=== PATIENT | male | born 1940 | race Caucasian/White ===

== ENCOUNTER 2016-10-01 15:13 | Inpatient (IN) | payer MEDICARE ==
[~2016-10-01] VITALS: Ht 170.2 cm; Wt 79.6 kg
[2016-10-01] MEDS ORDERED: diphenhydrAMINE INJ 50MG/ML VIAL (J1200) As Ordered ONE (15:44)
[2016-10-01] MEDS ORDERED: ONDANSETRON 4MG/2ML VIAL (J2405) As Ordered ONE (15:45)
[2016-10-01] MEDS ORDERED: methylPREDNISolone INJ 125 MG/2 ML VIAL (J2930) As Ordered ONE (15:45)
[2016-10-01 15:55] LABS: EOS # 0.4 K/mm3 (0.0-0.50); EOS % 1.7 % (0.0-3.0); LARGE UNSTAINED CELL # 0.2 K/mm3 (0.0-0.4); LARGE UNSTAINED CELL % 0.8 % (0.0-4.0); LYMPH # 1.1 K/mm3 (1.5-4.5); LYMPH % 3.6 % (24.0-44.0); MEAN CORPUSCULAR HEMOGLOBIN 27.8 pg (27.0-33.0); MEAN CORPUSCULAR HGB CONC 32.5 g/dl (32.0-36.5); MEAN CORPUSCULAR VOLUME 85.5 fl (80.0-96.0); NEUTROPHILS # 22.3 K/mm3 (1.8-7.7); NEUTROPHILS % 89.9 % (36.0-66.0); PLATELET COUNT, AUTOMATED 294 k/mm3 (150-450); RED CELL DISTRIBUTION WIDTH 15.6 % (11.5-14.5); WHITE BLOOD COUNT 24.8 K/mm3 (4.0-10.0)
[2016-10-01 16:17] LABS: ALBUMIN 3.2 GM/DL (3.2-5.2); ALBUMIN/GLOBULIN RATIO 0.94 (1.00-1.93); BILIRUBIN,DIRECT 0.1 MG/DL (0.0-0.2); BILIRUBIN,TOTAL 0.4 MG/DL (0.2-1.0); CREATININE FOR GFR 2.99 MG/DL (0.70-1.30); POTASSIUM SERUM 4.3 MEQ/L (3.5-5.1); TOTAL PROTEIN 6.6 GM/DL (6.4-8.2)
[2016-10-01] MEDS ORDERED: PRED10TA PO (18:45)
[2016-10-01] MEDS ORDERED: GI COCKTAIL 50ML BTL(HYOSCYAMINE/MAALOX/LIDOCAINE VISCOUS)(1:3:1) As Ordered ONE (18:54)
[2016-10-01] MEDS ORDERED: CRES20TA PO (18:56)
[2016-10-01] MEDS ORDERED: RANI300T PO (18:56)
[2016-10-01] MEDS ORDERED: PLAV75TA38 PO (18:56)
[2016-10-01] MEDS ORDERED: LISI-538 PO (18:56)
[2016-10-01] MEDS ORDERED: GLIP-162 PO (18:56)
[2016-10-01] MEDS ORDERED: GEMF600T PO (18:56)
[2016-10-01] MEDS ORDERED: LISI40TAB PO (18:56)
[2016-10-01] MEDS ORDERED: PENT40TASA PO (18:56)
[2016-10-01] MEDS ORDERED: AMLO10TA2 PO (18:56)
[2016-10-01] MEDS ORDERED: METO50TA2 PO (18:56)
[2016-10-01] MEDS ORDERED: VITMTA PO (18:57)
[2016-10-01] MEDS ORDERED: FISH1000 PO (18:57)
[2016-10-01] MEDS ORDERED: VITA100066 PO (18:57)
[2016-10-01] MEDS ORDERED: GREE150C3 PO (18:57)
[2016-10-01] MEDS ORDERED: ASPI325T28 PO (18:57)
[2016-10-01] MEDS ORDERED: VITA500T88 PO (18:57)
[2016-10-01] MEDS ORDERED: NITR4TASL SL (18:57)
[2016-10-01] MEDS ORDERED: TURM500C3 PO (18:57)
[2016-10-01] MEDS ORDERED: NITROGLYCERIN 0.4 MG SUBL TABLET SL PRN (20:00)
[2016-10-01] MEDS ORDERED: ASPIRIN 325 MG TAB As Ordered ONE (20:12)
[2016-10-01 20:28] LABS: INR 1.05
[2016-10-01] MEDS ORDERED: GLUCOSE 4 GM CHEW TABLET PO PRN (20:30)
[2016-10-01] MEDS ORDERED: DEXTROSE 50% 50 ML SYRINGE IV PRN (20:30)
[2016-10-01] MEDS ORDERED: GLUCAGON FOR INJ 1 MG VIAL (J1610) SC PRN (20:30)
[2016-10-01] MEDS: HumaLOG INSULIN (NovoLOG) PER UNIT SC SCH (21:00)
--- NOTE | 2016-10-01 21:31 | HPEPDOC ---
General Date of Admission 10/01/16 Chief Complaint The patient is a 75-year-old male admitted with a reason for visit of General Weakness. Source: Patient History of Present Illness 75-year-old male with past medical history of hypertension, dyslipidemia, non- insulin dependent diabetes, CABG 4 approximately 14 years ago at [facility], peripheral vascular disease with history of renal artery stenting presented to the ER with a chief complaint of generalized weakness and worsening rash over the last 2 days. According to the patient, he has been feeling lethargy and malaise over the last 1 week. In addition, the patient says he has been having nausea, vomiting, some diarrhea, and muscle aches during this time. He also notes subjective fevers at home during this time. He states that he went to the urgent care facility 4 days ago and was prescribed clindamycin. Since then, the patient states that he has developed a rash all over his body and that his symptoms of lethargy and malaise have gotten worse. He notes that during this time he has been unable to eat much of anything as his appetite has been decreased. Also of note, the patient does state that he has 6 out of 10 chest pain in the substernal area which he states has no clear aggravating or alleviating factors. He notes that he has been having this type of pain for the past few months and denies any similar pain in the past before this. He denies following with a educational administrator, and cannot recall his PCPs name. At this time, the patient denies any shortness of breath, diaphoresis, lightheadedness, dizziness, cough, abdominal pain, sick contacts, recent travel , or recent hospitalization. In the ED, an EKG revealed ST Depressions in the lateral leads, and an initial troponin level of 1.38. He has been given his full dose of ASA, and plavix. Dr. Rodriguez of Cardiology was contacted, and he suggests medically treating the patient at this time and following up with cardiac enzymes. The patient will be admitted to the hospitalist service for further evaluation and management. Home Medications Scheduled Amlodipine Besylate (Amlodipine Besylate) 10 Mg Tab 10 MG PO QHS (Reported) Ascorbic Acid (Vitamin C) 500 Mg Tab 1,000 MG PO DAILY (Reported) Aspirin (Aspirin) 325 Mg Tab 325 MG PO DAILY (Reported) Cholecalciferol (Vitamin D) 1,000 Unit Tab 1,000 UNIT PO DAILY (Reported) Clopidogrel Bisulfate (Plavix) 75 Mg Tab 75 MG PO DAILY (Reported) Curcuma Longa (Turmeric) Extra (Turmeric) 500 Mg Cap 500 MG PO BID (Reported) Fish Oil (Fish Oil) 1,000 Mg Cap 2,000 MG PO BID (Reported) Gemfibrozil (Gemfibrozil) 600 Mg Tab 600 MG PO DAILY ABDOMINAL PAIN (Reported) Glipizide (Glipizide Xl) 5 Mg Tab 5 MG PO DAILY (Reported) Green Tea [place] Ext (Green Tea Extract) 150 Mg Cap 150 MG PO BID (Reported) Lisinopril (Lisinopril) 40 Mg Tab 40 MG PO QAM (Reported) Lisinopril (Lisinopril) 20 Mg Tab 20 MG PO QHS (Reported) Metoprolol Tartrate (Metoprolol Tartrate) 50 Mg Tab 50 MG PO QHS (Reported) Multivitamins *[facility] STOCKED* (Thera M Plus *[facility] STOCK[facility]*) 1 Tab Tab 1 TAB PO DAILY (Reported) Pentoxifylline (Pentoxifylline ER) 400 Mg Tab 400 MG PO BID (Reported) Prednisone (Prednisone) 10 Mg Tab 10 MG PO ASDIRECTED (Reported) TAPER DOSE - SEE COMMENTS Ranitidine HCl (Ranitidine HCl) 300 Mg Tab 1 TAB PO DAILY (Reported) Rosuvastatin Calcium (Crestor) 20 Mg Tab 20 MG PO QHS (Reported) Scheduled PRN Nitroglycerin (Nitrostat) 0.4 Mg Subl 0.4 MG SL NITRO PRN PRN CHEST PAIN ( Reported) Allergies Coded Allergies: Clindamycin (Unverified Allergy, Unknown, 10/01/16) Penicillins (Unverified Allergy, Unknown, 10/01/16) Past Medical History Medical History As noted in HPI Surgical History History of CABG 4, renal artery stenting, stenting in the lower extremities Social History * Smoker: current smoker (smokes one pack per day of tobacco) Alcohol: denies Drugs: denies Recent Travel/Sick Contacts: Denies: Recent sick contacts, Recent travel Lives at home with his . Review of Symptoms Other systems 10 point review of systems negative unless otherwise specified in HPI. Physical Examination General Exam: Positive: Alert, Cooperative, No Acute Distress ENT Exam: Positive: Atraumatic, Mucous membr. moist/pink Neck Exam: Negative: JVD Chest Exam: Positive: Clear to auscultation, Normal air movement, Negative: Rales, Wheezing Heart Exam: Positive: Normal S1, Normal S2, Rate Normal Telemetry: Positive: Sinus Abdomen Exam: Positive: Soft, Negative: Tenderness Extremity Exam: Negative: Edema Skin Exam: Positive: Rash (patient noted to have urticarial rash all 4 extremities and on the chest and abdomen area. Nontender to palpation, with no discharge or open lesions noted.) Vital Signs As noted in EMR Laboratory Data Labs 24H Laboratory Tests 2 10/01/16 15:46: Aspartate Amino Transf (AST/SGOT) 20, Alanine Aminotransferase (ALT/SGPT) 27, Alkaline Phosphatase 66, Total Bilirubin 0.4, Direct Bilirubin 0.1, Albumin 3.2 , Albumin/Globulin Ratio 0.94L, Amylase Level 52, Anion Gap 14, White Blood Count 24.8H, Red Blood Count 4.76, Hemoglobin 13.2L, Hematocrit 40.7L, Mean Corpuscular Volume 85.5, Mean Corpuscular Hemoglobin 27.8, Mean Corpuscular Hemoglobin Concent 32.5, Red Cell Distribution Width 15.6H, Platelet Count 294, Neutrophils (%) (Auto) 89.9H, Lymphocytes (%) (Auto) 3.6L, Monocytes (%) (Auto) 4.0, Eosinophils (%) (Auto) 1.7, Basophils (%) (Auto) 0.0, Neutrophils # (Auto) 22.3H, Lymphocytes # (Auto) 1.1L, Monocytes # (Auto) 1.0H, Eosinophils # (Auto) 0.4, Basophils # (Auto) 0.0, Calcium Level 10.0, Glomerular Filtration Rate 22.0L, Large Unclassified Cells # 0.2, Large Unclassified Cells % 0.8, Lipase 128, Prothromb Time International Ratio 1.05, Prothrombin Time 13.8, Total Protein 6.6 10/01/16 16:42: Urine Amorphous Sediment , Urine Appearance CLEAR, Urine Color YELLOW, Urine pH 5.0, Urine Specific [place] 1.017, Urine Protein 1+H, Urine Glucose (UA) 1+H, Urine Ketones NEGATIVE, Urine Urobilinogen 0.2, Urine Bilirubin NEGATIVE, Urine Leukocyte Esterase NEGATIVE, Urine Bacteria (Auto) NEGATIVE, Urine Blood NEGATIVE, Urine Calcium Carbonate Cryst(Auto) , Urine Calcium Oxalate Cryst ( Auto) , Urine Calcium Phosphate [place] (Auto) , Urine Cellular Casts , Urine Cystine Crystals , Urine Granular Casts (Auto) , Urine Hyaline Casts (Auto) 0, Urine Leucine Crystals , Urine Mucus (Auto) , Urine Nitrite NEGATIVE, Urine Oval Fat Bodies (Auto) , Urine RBC (Auto) 1, Urine Renal Epithelial Cells , Urine Sperm (Auto) , Urine Squamous Epithelial Cells 0, Urine Transitional Epithelial Cells , Urine Trichomonas (Auto) , Urine Triple Phosphate Cryst (Auto ) , Urine Tyrosine Crystals , Urine Uric Acid Crystals (Auto) , Urine WBC (Auto ) 3, Urine Waxy Casts (Auto) , Urine Yeast-Like Cells (Auto) 10/01/16 20:00: Creatine Kinase MB 4.1H, Creatine Kinase MB Relative Index 8.20H, Total Creatine Kinase 50, Troponin I 1.38H CBC/BMP Laboratory Tests 10/01/16 15:46 Red Blood Count 4.76, Mean Corpuscular Volume 85.5, Mean Corpuscular Hemoglobin 27.8, Mean Corpuscular Hemoglobin Concent 32.5, Red Cell Distribution Width 15.6 H, Neutrophils (%) (Auto) 89.9 H, Lymphocytes (%) (Auto) 3.6 L, Monocytes ( %) (Auto) 4.0, Eosinophils (%) (Auto) 1.7, Basophils (%) (Auto) 0.0, Neutrophils # (Auto) 22.3 H, Lymphocytes # (Auto) 1.1 L, Monocytes # (Auto) 1.0 H, Eosinophils # (Auto) 0.4, Basophils # (Auto) 0.0 Plan / VTE VTE Prophylaxis Ordered?: Yes Plan Plan Chest Pain in a Patient with History of CABG x 4, PVD, Renal Artery Stenting EKG ordered--ST depressions noted in the lateral leads, no comparison available Initial Troponin noted to be 1.38, will cycle x 3 Cont ASA, Plavix, Statin, Metoprolol SL Nitro prn Will order an ECHO to assess for wall motion abnormalities Dr. Rodriguez of Cardiology contacted in the ER-->he suggests medically treating the patient at this time and following up with cardiac enzymes. Patient is a poor candidate for cardiac catheterization given his acute on chronic kidney injury (Serum Creatinine 2.99), and leukocytosis (WBC 24.8K). Leukocytosis likely secondary to adverse reaction to clindamycin The patient has been given 50mg of Benadryl and 125 mg IV dose of methylprednisolone in the ER We will discontinue the clindamycin Urinalysis not suggestive of infection Patient does not have any respiratory symptoms, we will order a chest x-ray for completeness, and a respiratory panel We will order a GI panel to rule out C. difficile CT Abd ordered Blood cultures ordered Gentle IV fluid hydration Acute on Chronic Kidney Injury likely 2/2 decreased PO Intake, Vomiting + Diarrhea Serum Cr. 2.99 (Last known baseline 1.5-1.9 from 2007 as per records) Hold Nephrotoxins Urine Studies ordered Renal ultrasound Gentle IVF Hydration Repeat BMP in the AM Hypertension, stable Cont Norvasc, Metoprolol Hold Lisinopril 2/2 Above Dyslipidemia Cont Statin Diabetes Mellitus Insulin Sliding Scale GERD Protonix DVT prophylaxis Heparin SC The patient will be admitted under Dr. Jean's service, and she will begin following him on 10/02/16 at 7am WILL SKAGGS MD Oct 01, 2016 21:31
[2016-10-02] VITALS (8 sets, daily range): BP systolic 138–170; BP diastolic 55–72; PULSE 87
--- NOTE | 2016-10-02 00:13 | EDDOCDS ---
Nurse's Notes [facility] Name: Andrew Weiss Age: 75 yrs Sex: Male : 1940 Arrival Date: 10/01/2016 Time: 15:13 Bed 15 Private MD: Justus Lockwood NCFM Diagnosis: Dehydration;Acute kidney failure Presentation: 10/01 15:17 Presenting complaint: Patient states: Intermittent diarrhea for the past two weeks on mlb1 antibiotic since 09/20/16 rash to bilateral arms seen at PCP office yesterday reports weakness and fatigue since last night. Adult Sepsis Screening: The patient does not have new or worsening altered mentation. Patient's respiratory rate is less than 22. Systolic blood pressure is greater than 100. Patient has a qSOFA score of 0- Negative Sepsis Screen. Suicide/Homicide risk assessment- the patient denies having any suicidal and/or homicidal ideations and does not present with any other emotional, behavioral or mental health complaints. Status: Patient is not a inpatient services rn or dependent. Transition of care: patient was not received from another setting of care. 15:17 Acuity: BRIELLE Level 3 mlb1 15:17 Method Of Arrival: Wheelchair mlb1 Triage Assessment: 15:27 General: Appears distressed, Behavior is cooperative. General: Appears ill. Pain: mlb1 Location: "all over" Pain currently is 5 out of 10 on a pain scale. Neurological: No deficits noted. Respiratory: Airway is patent Respiratory effort is even. Historical: - Allergies: PENICILLINS; clindamycin HCl; - Home Meds: 1. prednisone 10 mg Oral tab once daily 2. pentoxifylline 400 mg oral TbER 1 tab 2 times per day 3. lisinopril 40 mg Oral tab 0.5 tab once daily 4. Plavix 75 mg Oral tab 1 tab once daily 5. metoprolol tartrate 50 mg Oral tab nightly 6. amlodipine 5 mg Oral tab 1 tab once daily 7. gemfibrozil 600 mg Oral tab 1 tab daily 8. glipizide 5 mg Oral tab 1 tab once daily 9. ranitidine HCl 300 mg Oral cap 1 cap once daily 10. Crestor 20 mg Oral tab 1 tab once daily 11. multivitamin Oral tab 12. aspirin 325 mg Oral tab 1 tab once daily 13. Fish Oil 1,000 mg Oral cap daily 14. turmeric root extract 500 mg oral cap daily - PMHx: Hypertension; ME; High Cholesterol; - PSHx: CABG; Stents, Coronary; Ureteral Stents; - Social history: Smoking status: Patient uses tobacco products, heavy tobacco smoker. No barriers to communication noted, The patient speaks fluent Montserratian, Speaks appropriately for age. - Family history: Not pertinent. - : The pt / caregiver states he / she is on anticoagulants: Plavix. Home medication list is obtained from the patient. - Exposure Risk Screening:: None identified. Screenin:33 Screening information is obtained from the patient. Primary language is Montserratian. Fall jam1 risk: No risks identified. Assistance ADL's: requires no assistance with activities of daily living. Abuse/DV Screen: The patient / caregiver reports he/she is: not in a situation that causes fear, pain or injury. Nutritional screening: No deficits noted. Exposure Risk Screening: None identified. Advance Directives: Currently, there is a health care proxy, kandis weiss of pt. There is no active DNR order. There is no living will. There is no Power of Clinical Resource Director. Advance directive information has not previously been placed in an [facility] medical record. Further advance directive information is declined. home support is adequate. Assessment: 15:51 General: Appears uncomfortable, Behavior is cooperative. Pain: Location: abdomen Pain mcp currently is 7 out of 10 on a pain scale. Neurological: No deficits noted. Respiratory: Airway is patent Respiratory effort is even, unlabored, Breath sounds are clear bilaterally. GI: Abdomen is non- distended Bowel sounds present X 4 quads. Abd is soft X 4 quads. Derm: Skin is pink, warm & dry. Rash noted that is red, on face, back, chest, abdomen, right arm, left arm, right leg and left leg. 16:44 General: Call Kandis Weiss () with any changes in condition or updates ck1 (home); [phone] (cell). 17:44 General: Appears in no apparent distress, to be sleeping. Behavior is appropriate for ck1 age, cooperative. Neurological: Level of Consciousness is awake, alert, obeys commands, Oriented to person, place, time. Respiratory: Respiratory effort is even, unlabored, Respiratory pattern is regular, symmetrical. GI: No deficits noted. Derm: Skin is pink, warm & dry. 18:26 General: Appears in no apparent distress, to be sleeping. Behavior is appropriate for ck1 age, cooperative. Pain: Denies pain. Neurological: Level of Consciousness is awake, alert, obeys commands, Oriented to person, place, time. Respiratory: Respiratory effort is unlabored, Respiratory pattern is regular, symmetrical. GI: No deficits noted. Derm: Skin is pink, warm & dry. 18:59 General: Pt took mouthful of GI cocktail and refuses to take any more. States he is mcp nauseous. Jose TitusAUTOMATION TECHNOLOGIST aware. 19:50 General: Appears in no apparent distress, uncomfortable, Behavior is cooperative. Pain: mlc Location: generalized. Neurological: Level of Consciousness is awake, alert, Oriented to person, place, time. Respiratory: Airway is patent Respiratory effort is even, unlabored, Respiratory pattern is regular. Derm: Rash noted that is red, on back, buttocks, chest, abdomen, right arm, left arm, right leg and left leg pt states he noticed the rash starting Friday. 20:18 Reassessment: Patient appears in no apparent distress at this time. Patient states mlc symptoms have not improved. pt medicated per order. pt sitting at bedside. . 20:18 Reassessment: Hospitalist contacted about EKG results. . mlc 21:15 General: Appears in no apparent distress, Behavior is appropriate for age, cooperative. af2 Neurological: Level of Consciousness is awake, alert, obeys commands. Cardiovascular: Rhythm is sinus rhythm No ectopy. Respiratory: Airway is patent Respiratory effort is even, unlabored. Derm: Skin is pink, warm & dry. 22:15 General: Appears in no apparent distress, Behavior is appropriate for age, cooperative. af2 Neurological: Level of Consciousness is awake, alert, obeys commands. Cardiovascular: Rhythm is sinus rhythm No ectopy. Respiratory: Airway is patent Respiratory effort is even, unlabored. Derm: Skin is pink, warm & dry. 23:15 General: Appears in no apparent distress, Behavior is appropriate for age, cooperative. af2 Neurological: Level of Consciousness is awake, alert, obeys commands. Cardiovascular: Rhythm is sinus rhythm No ectopy. Respiratory: Airway is patent Respiratory effort is even, unlabored. Derm: Skin is pink, warm & dry. 10/02 00:11 General: Appears in no apparent distress, Behavior is appropriate for age, cooperative. af2 Neurological: Level of Consciousness is awake, alert, obeys commands. Cardiovascular: Rhythm is sinus rhythm No ectopy. Respiratory: Airway is patent Respiratory effort is even, unlabored. Derm: Skin is pink, warm & dry. Vital Signs: 10/01 15:16 BP 135 / 81; Pulse 88; Resp 24; Temp 97.6; Pulse Ox 100% ; elp 18:28 BP 162 / 70; Pulse 75; Resp 20; Temp 97.7; Pulse Ox 98% ; Pain 6/10; jam1 20:18 BP 180 / 83; Pulse 90; Resp 20; Temp 96.4(T); Pulse Ox 98% on R/A; mlc 21:08 BP 144 / 68 (auto/); af2 21:09 Pulse 94 MON; Pulse Ox 94% ; af2 21:21 BP 152 / 72 (auto/); af2 21:21 BP 152 / 72 Sitting; Pulse 96 MON; Pulse Ox 95% on R/A; af2 22:35 Pulse 90 MON; Resp 18 S; Pulse Ox 94% on R/A; af2 22:36 BP 127 / 60 (auto/); af2 22:48 Pulse 88 MON; Resp 18 S; Pulse Ox 97% on R/A; af2 22:51 BP 175 / 78 (auto/); af2 23:06 BP 162 / 62 (auto/); af2 23:06 Pulse 76 MON; Resp 18 S; Pulse Ox 93% on R/A; af2 23:21 BP 162 / 72 (auto/); af2 23:21 Pulse 76 MON; Resp 18 S; Pulse Ox 92% on R/A; af2 23:36 BP 191 / 76 (auto/); af2 23:36 Pulse 80 MON; Resp 18 S; Pulse Ox 95% on R/A; af2 23:51 BP 183 / 77 (auto/); af2 23:51 Pulse 74 MON; Resp 18 S; Pulse Ox 93% on R/A; af2 10/02 00:06 BP 164 / 72 (auto/); af2 00:06 Pulse 70 MON; Resp 18 S; Temp 97.2(O); Pulse Ox 93% on R/A; af2 Vitals: 10/01 15:16 Log In Time: October 01, 2016 at 15:14. RN notified that patient meets Red Flag elp criteria. ED Course: 15:14 Patient visited by Katiana Lay PCA. elp 15:14 Patient moved to Waiting elp 15:15 Justus Lockwood is Private Physician. elp 15:16 Patient visited by Katiana Lay PCA. elp 15:16 Patient moved to Pre RCE elp 15:17 Patient visited by Calin Krause, WISAM. mlb1 15:21 Triage Initiated mlb1 15:28 Patient visited by Calin Krause, WISAM. mlb1 15:28 [facility] ke 15:28 Patient moved to Triage 1 mlb1 15:29 Patient visited by David Titus FNP. ke 15:29 Patient visited by David Titus FNP. ke 15:32 Patient moved to Pre RCE mk4 15:33 Patient moved to I7 / ck1 15:33 Pt greeted and oriented to ED. Patient advised of names of staff involved in care, [facility] location of call [place], wait times and NPO status. Patient has correct armband on for positive identification. Placed in gown. Bed in low position. Call light in reach. Side rails up X 1. Adult w/ patient. Door closed. 15:49 Amylase Sent. [facility] 15:49 Basic Metabolic Profile Sent. [facility] 15:49 CBC with Diff Sent. [facility] 15:49 Lipase Sent. [facility] 15:49 Liver Profile Sent. [facility] 15:49 Prothrombin Time Profile\\E\\INR Sent. [facility] 15:50 Patient visited by Benita Montoya RN. [facility] 15:53 Patient visited by Chantel Riddle RN. [facility] 15:53 The patient / caregiver is instructed regarding the plan of care and ED course. [facility] 15:53 Inserted saline lock: 20 gauge in right antecubital area and blood collected. The [facility] patient tolerated the procedure well. Labs drawn. (by ED staff). Sent per order to lab. 16:23 Patient visited by David Titus FNP. ke 16:27 Abdomen, Flat\\E\\Upright,PA Chest Returned. EDMS 16:43 Urinalysis Sent. ck1 16:48 Patient visited by David Titus FNP. ke 16:59 Patient visited by Benita Montoya,WISAM. ck1 17:09 Patient has correct armband on for positive identification. Bed in low position. Call jam1 light in reach. Side rails up X 1. Adult w/ patient. Door closed. 17:34 Patient visited by David Titus FNP. ke 17:50 Jesus Sloan is Hospitalizing Provider. ke 19:05 [facility] Payment Agreement was scanned into [employer] and attached to record. zo 19:52 Patient visited by Vanita Cheung RN. mlc 20:04 TROPONIN Sent. mlc 20:08 Patient visited by Veronika Azul. ajs 20:08 EKG done. (by ED staff). Reviewed by David MONCADA. ajs 20:12 Patient visited by Veronika Azul. ajs 20:12 Written Provider Order was scanned into [employer] and attached to record. ajs 20:19 Patient visited by Vanita Cheung RN. mlc 21:09 Rissa Gaxiola RN is Primary Nurse. mlc 21:09 Codie Zuniga RN is Primary Nurse. mlc 21:09 Patient moved to 15 mlc 21:34 No procedures done that require assistance. af2 21:39 Patient visited by Codie Zuniga RN. af2 21:40 Primary Nurse role handed off by Rissa Gaxiola RN luis 22:01 Patient moved to Ultrasound dmg 22:34 Patient moved to 15 dmg 22:59 RENAL US Returned. EDMS Administered Medications: 15:50 Drug: NS 0.9% 1000 ml [sodium chloride 0.9 % intravenous solution] Route: IV; Rate: ck1 bolus; Site: right antecubital; 16:59 Follow up: IV Status: Completed infusion ck1 15:50 Drug: Solu-MEDROL 125 mg [Solu-Medrol 500 mg intravenous solution (125 mg)] Route: IVP; ck1 Site: right antecubital; 15:50 Drug: diphenhydrAMINE 25 mg [diphenhydramine 50 mg/mL injection solution (0.5 mL)] ck1 Route: IVP; Site: right antecubital; 15:51 Drug: Ondansetron 4 mg [ondansetron HCl 2 mg/mL intravenous solution (2 mL)] Route: ck1 IVP; Site: right antecubital; 19:49 Not Given (Patient Refused): GI Cocktail - (Alum-Mag Hydroxide-Simeth Suspension 225 mlc mg-200 mg-25 mg/5 mL 30 ml, Lidocaine Liquid 2 % 10 ml, Hyoscyamine Liquid 10 ml) PO once; Pre-mixed 50mL unit dose 20:18 Drug: Aspirin 325 mg [aspirin 325 mg tablet (1 tabs)] Route: PO; mlc Order Results: Lab Order: Amylase; SPEC'M 10/01/16 15:46 Test: AMYLASE; Value: 52; Range: 25-115; Units: U/L; Status: F Lab Order: Basic Metabolic Profile; SPEC'M 10/01/16 15:46 Test: GLUCOSE, FASTING; Value: 268; Range: 83-110; Abnormal: Above high normal; Units: MG/DL; Status: F Test: BLOOD UREA NITROGEN; Value: 88; Range: 7-18; Abnormal: Above high normal; Units: MG/DL; Status: F Test: CREATININE FOR GFR; Value: 2.99; Range: 0.70-1.30; Abnormal: Above high normal; Units: MG/DL; Status: F Test: GLOMERULAR FILTRATION RATE; Value: 22.0; Range: >42; Abnormal: Below low normal; Status: F Test: SODIUM LEVEL; Value: 139; Range: 136-145; Units: MEQ/L; Status: F Test: POTASSIUM SERUM; Value: 4.3; Range: 3.5-5.1; Units: MEQ/L; Status: F Test: CHLORIDE LEVEL; Value: 100; Range: 98-107; Units: MEQ/L; Status: F Test: CARBON DIOXIDE LEVEL; Value: 25; Range: 21-32; Units: MEQ/L; Status: F Test: ANION GAP; Value: 14; Range: 8-16; Units: MEQ/L; Status: F Test: CALCIUM LEVEL; Value: 10.0; Range: 8.8-10.2; Units: MG/DL; Status: F Test Note: ; Units are mL/min/1.73 m2 Chronic Kidney Disease Staging per NKF: Stage I & II GFR >=60 Normal to Mildly Decreased Stage III GFR 30-59 Moderately Decreased Stage IV GFR 15-29 Severely Decreased Stage V GFR <15 Very Little GFR Left ESRD GFR <15 on SUPPLY CHAIN INTERN Lab Order: CBC with Diff; SPEC'M 10/01/16 15:46 Test: WHITE BLOOD COUNT; Value: 24.8; Range: 4.0-10.0; Abnormal: Above high normal; Units: K/mm3; Status: F Test: RED BLOOD COUNT; Value: 4.76; Range: 4.30-6.10; Units: M/mm3; Status: F Test: HEMOGLOBIN; Value: 13.2; Range: 14.0-18.0; Abnormal: Below low normal; Units: g/dl; Status: F Test: HEMATOCRIT; Value: 40.7; Range: 42.0-52.0; Abnormal: Below low normal; Units: %; Status: F Test: MEAN CORPUSCULAR VOLUME; Value: 85.5; Range: 80.0-96.0; Units: fl; Status: F Test: MEAN CORPUSCULAR HEMOGLOBIN; Value: 27.8; Range: 27.0-33.0; Units: pg; Status: F Test: MEAN CORPUSCULAR HGB CONC; Value: 32.5; Range: 32.0-36.5; Units: g/dl; Status: F Test: RED CELL DISTRIBUTION WIDTH; Value: 15.6; Range: 11.5-14.5; Abnormal: Above high normal; Units: %; Status: F Test: PLATELET COUNT, AUTOMATED; Value: 294; Range: 150-450; Units: k/mm3; Status: F Test: NEUTROPHILS %; Value: 89.9; Range: 36.0-66.0; Abnormal: Above high normal; Units: %; Status: F Test: LYMPH %; Value: 3.6; Range: 24.0-44.0; Abnormal: Below low normal; Units: %; Status: F Test: MONO %; Value: 4.0; Range: 0.0-5.0; Units: %; Status: F Test: EOS %; Value: 1.7; Range: 0.0-3.0; Units: %; Status: F Test: BASO %; Value: 0.0; Range: 0.0-1.0; Units: %; Status: F Test: LARGE UNSTAINED CELL %; Value: 0.8; Range: 0.0-4.0; Units: %; Status: F Test: NEUTROPHILS #; Value: 22.3; Range: 1.8-7.7; Abnormal: Above high normal; Units: K/mm3; Status: F Test: LYMPH #; Value: 1.1; Range: 1.5-4.5; Abnormal: Below low normal; Units: K/mm3; Status: F Test: MONO #; Value: 1.0; Range: 0.0-0.8; Abnormal: Above high normal; Units: K/mm3; Status: F Test: EOS #; Value: 0.4; Range: 0.0-0.50; Units: K/mm3; Status: F Test: BASO #; Value: 0.0; Range: 0.0-0.2; Units: K/mm3; Status: F Test: LARGE UNSTAINED CELL #; Value: 0.2; Range: 0.0-0.4; Units: K/mm3; Status: F Lab Order: Lipase; [facility] 10/01/16 15:46 Test: LIPASE; Value: 128; Range: 73-393; Units: U/L; Status: F Lab Order: Liver Profile; [facility] 10/01/16 15:46 Test: AST/SGOT; Value: 20; Range: 15-37; Units: U/L; Status: F Test: ALT/SGPT; Value: 27; Range: 12-78; Units: U/L; Status: F Test: ALKALINE PHOSPHATASE; Value: 66; Range: 45-117; Units: U/L; Status: F Test: BILIRUBIN,TOTAL; Value: 0.4; Range: 0.2-1.0; Units: MG/DL; Status: F Test: BILIRUBIN,DIRECT; Value: 0.1; Range: 0.0-0.2; Units: MG/DL; Status: F Test: TOTAL PROTEIN; Value: 6.6; Range: 6.4-8.2; Units: GM/DL; Status: F Test: ALBUMIN; Value: 3.2; Range: 3.2-5.2; Units: GM/DL; Status: F Test: ALBUMIN/GLOBULIN RATIO; Value: 0.94; Range: 1.00-1.93; Abnormal: Below low normal; Status: F Lab Order: Prothrombin Time Profile\\E\\INR; [facility] 10/01/16 15:46 Test: PROTHROMBIN TIME; Value: 13.8; Range: 12.3-14.5; Units: SECONDS; Status: F Test: INR; Value: 1.05; Status: F Test Note: ; THERAPUTIC HUMAN INR VALUES INDICATIONS NORMAL RANGES PROPHYLAXIS/TREATMENT OF: VENOUS THROMBOSIS 2.0-3.0 PULMONARY EMBOLISM 2.0-3.0 PREVENTION OF SYSTEMIC EMBOLISM FROM: TISSUE HEART VALVES 2.0-3.0 ACUTE MYOCARDIAL INFARCTION 2.0-3.0 VALVULAR HEART DISEASE 2.0-3.0 ATRIAL FIBRILLATION 2.0-3.0 MECHANICAL VALVES(HIGH RISK) 2.5-3.5 RECURRENT MYOCARDIAL INFARCTION 2.5-3.5 Lab Order: Urinalysis; SPEC'M 10/01/16 16:42 Test: APPEARANCE, URINE; Value: CLEAR; Range: CLEAR; Status: F Test: COLOR, URINE; Value: YELLOW; Range: YELLOW; Status: F Test: PH,URINE; Value: 5.0; Range: 5.0-9.0; Units: UNITS; Status: F Test: SPECIFIC GRAVITY URINE AUTO; Value: 1.017; Range: 1.002-1.035; Status: F Test: PROTEIN, URINE AUTO; Value: 1+; Range: NEGATIVE; Abnormal: Above high normal; Units: mg/dL; Status: F Test: GLUCOSE, URINE (UA) AUTO; Value: 1+; Range: NEGATIVE; Abnormal: Above high normal; Units: mg/dL; Status: F Test: KETONE, URINE AUTO; Value: NEGATIVE; Range: NEGATIVE; Units: mg/dL; Status: F Test: UROBILINOGEN, URINE AUTO; Value: 0.2; Range: 0.0-2.0; Units: mg/dL; Status: F Test: BILIRUBIN, URINE AUTO; Value: NEGATIVE; Range: NEGATIVE; Status: F Test: NITRITE, URINE AUTO; Value: NEGATIVE; Range: NEGATIVE; Status: F Test: LEUKOCYTE ESTERASE, URINE AUTO; Value: NEGATIVE; Range: NEGATIVE; Status: F Test: BLOOD, URINE BLOOD; Value: NEGATIVE; Range: NEGATIVE; Status: F Test: WBC, URINE AUTO; Value: 3; Range: 0-3; Units: /HPF; Status: F Test: RBC, URINE AUTO; Value: 1; Range: 0-3; Units: /HPF; Status: F Test: BACTERIA, URINE AUTO; Value: NEGATIVE; Range: NEGATIVE; Status: F Test: SQUAMOUS EPITHELIAL CELL UR AU; Value: 0; Range: 0-6; Units: /HPF; Status: F Test: HYALINE CAST, URINE AUTO; Value: 0; Range: 0-1; Units: /LPF; Status: F Lab Order: TROPONIN; SPEC'M 10/01/16 20:00 Test: TROPONIN I; Value: 1.38; Range: < 0.10; Abnormal: Above high normal; Units: NG/ML; Status: F Test Note: ; Troponin I Reference Interval for Siemens [place] LOCI: 99th Percentile= 0.00-0.045 ng/ml Risk Stratification: <= 0.10 ng/ml Decreased Risk for Adverse Clinical Events. 0.10-1.50 ng/ml Increased Risk for Adverse Clinical Events. Evaluation of additional criterion and/or repeat testing in 2-6 hours is suggested to rule out myocardial damage. >= 1.50 ng/ml Indicative of Myocardial Injury. Lab Order: CARDIAC INJURY PROFILE; SPEC'M 10/01/16 20:00 Test: CPK CREATINE PHOSPHOKINASE; Value: 50; Range: 39-308; Units: U/L; Status: F Test: CK-MB VALUE MASS; Value: 4.1; Range: 0.0-3.6; Abnormal: Above high normal; Units: NG/ML; Status: F Test: MB/CK RELATIVE INDEX; Value: 8.20; Range: < OR =4; Abnormal: Above high normal; Status: F Test Note: ; DIAGNOSIS CRITERIA MMB ng/ml Relative Index (RI) NON-AMI < or = 5 N/A PEREZ ZONE > 5 < or = 4 AMI > 5 > 4 Radiology Order: Abdomen, Flat\\E\\Upright,PA Chest Test: Abdomen, Flat\\E\\Upright,PA Chest REASON FOR EXAMINATION: Abdomen Pain; Acute abdominal series three views including PA chest and supine upright; abdomen:PA chest:Comparison is 10/12 2007.Lung ponce are clear. Cardiac size is; borderline enlarged, unchanged. There are sternotomy wires, unchanged.The lexis,; mediastinum, and bony thorax are unremarkable except for a lucent lesion in the; medial cortex of the proximal right humeral shaft. This area of the humerus is; excluded at the film margin of the prior study. There are no comparison studies; of the right humerus.There is no free subdiaphragmatic air.Impression:Lucent; lesion in the medial cortex of the proximal right humeral shaft. There are no; comparison studies. Follow-up radionuclide bone scan or MRI might be; considered.Abdomen, supine upright views:There are no comparisons.The bowel gas; pattern is nonspecific. There are occasional air-fluid levels in nondistended; bowel loops.There is an endovascular stent which I suspect is in the proximal; left renal artery.There are surgical homeostasis clips in the abdomen and femoral; areas.Impression:Nonspecific bowel gas; pattern. ; -------; ; ; Signed by; Dagoberto Nevarez MD 10/01/2016 04:09 P; Radiology Order: RENAL US Test: RENAL US REASON FOR EXAMINATION: acute on chronic kidney injury; ; Clinical history: Renal failure.; Findings: The urinary bladder appears unremarkable. No urinary bladder masses are seen. The right kid; kasie measures 11.1 x 5.5 x 5.9 cm. The left kidney measures 11.0 x 4.3 x 5.3 cm. The kidneys demonstra; te normal echotexture and echogenicity. There is no evidence of hydronephrosis or nephrolithiasis. Th; ere are multiple simple cysts in the kidneys bilaterally. No renal masses are seen. No free fluid is; appreciated.; Impression: No acute findings. Multiple bilateral simple renal cysts.; ; Outcome: 17:50 Decision to Hospitalize by Provider. ke 18:26 No special radiology studies were completed. ck1 21:34 Discharge Assessment: patient administered narcotics - no. The following High Risk af2 Discharge criteria are identified: None. Admitted to PCU accompanied by nurse, accompanied by tech, via stretcher, on monitor, with chart. Condition: stable. Property :Personal belongings accompany Pt. 10/02 00:12 Patient left the ED. af2 Signatures: Dispatcher [employer] EDFL Chantel Riddle, RN RN Odalis Lu, BEAM SEALER BEAM SEALER Shanika Argueta Karl, FELT HAT STEAMER FELT HAT STEAMER Calin Hernandez RN RN mlb1 Benita Montoya RN RN ck1 Coleen Garcia Destiny, BEAM SEALER BEAM SEALER Veronika Nascimento Erin, BEAM SEALER BEAM SEALER Radha Jensen RN RN mk4 Vanita Cheung RN RN mlc Fulton, Amber, RN RN af2 Corrections: (The following items were deleted from the chart) 10/01 20:54 20:52 CARDIAC INJURY PROFILE+LAB sent. [facility] 10/02 00:12 00:06 Pulse 70bpm; MonitorResp 18bpm; Spontaneous; Pulse Ox 93% RA; af2 af2 MTDD
--- NOTE | 2016-10-02 00:13 | EDDOCDS ---
Physician Documentation [facility] Name: Andrew Uribe Age: 75 yrs Sex: Male : 1940 Arrival Date: 10/01/2016 Time: 15:13 Bed 15 Private MD: Justus Lockwood NC Disposition: 10/01/16 17:50 Hospitalization ordered by Sloan Lee for Inpatient Admission. Preliminary diagnosis are Dehydration, Acute kidney failure. - Bed requested for PCU. - Status is Inpatient Admission. af2 - Condition is Stable. - Problem is an acute exacerbation. - Symptoms are unchanged. Historical: - Allergies: PENICILLINS; clindamycin HCl; - Home Meds: 1. prednisone 10 mg Oral tab once daily 2. pentoxifylline 400 mg oral TbER 1 tab 2 times per day 3. lisinopril 40 mg Oral tab 0.5 tab once daily 4. Plavix 75 mg Oral tab 1 tab once daily 5. metoprolol tartrate 50 mg Oral tab nightly 6. amlodipine 5 mg Oral tab 1 tab once daily 7. gemfibrozil 600 mg Oral tab 1 tab daily 8. glipizide 5 mg Oral tab 1 tab once daily 9. ranitidine HCl 300 mg Oral cap 1 cap once daily 10. Crestor 20 mg Oral tab 1 tab once daily 11. multivitamin Oral tab 12. aspirin 325 mg Oral tab 1 tab once daily 13. Fish Oil 1,000 mg Oral cap daily 14. turmeric root extract 500 mg oral cap daily - PMHx: Hypertension; AK; High Cholesterol; - PSHx: CABG; Stents, Coronary; Ureteral Stents; - Social history: Smoking status: Patient uses tobacco products, heavy tobacco smoker. No barriers to communication noted, The patient speaks fluent Italian, Speaks appropriately for age. - Family history: Not pertinent. - : The pt / caregiver states he / she is on anticoagulants: Plavix. Home medication list is obtained from the patient. - Exposure Risk Screening:: None identified. Vital Signs: 10/01 15:16 BP 135 / 81; Pulse 88; Resp 24; Temp 97.6; Pulse Ox 100% ; elp 18:28 BP 162 / 70; Pulse 75; Resp 20; Temp 97.7; Pulse Ox 98% ; Pain 6/10; jam1 20:18 BP 180 / 83; Pulse 90; Resp 20; Temp 96.4(T); Pulse Ox 98% on R/A; mlc 21:08 BP 144 / 68 (auto/); af2 21:09 Pulse 94 MON; Pulse Ox 94% ; af2 21:21 BP 152 / 72 (auto/); af2 21:21 BP 152 / 72 Sitting; Pulse 96 MON; Pulse Ox 95% on R/A; af2 22:35 Pulse 90 MON; Resp 18 S; Pulse Ox 94% on R/A; af2 22:36 BP 127 / 60 (auto/); af2 22:48 Pulse 88 MON; Resp 18 S; Pulse Ox 97% on R/A; af2 22:51 BP 175 / 78 (auto/); af2 23:06 BP 162 / 62 (auto/); af2 23:06 Pulse 76 MON; Resp 18 S; Pulse Ox 93% on R/A; af2 23:21 BP 162 / 72 (auto/); af2 23:21 Pulse 76 MON; Resp 18 S; Pulse Ox 92% on R/A; af2 23:36 BP 191 / 76 (auto/); af2 23:36 Pulse 80 MON; Resp 18 S; Pulse Ox 95% on R/A; af2 23:51 BP 183 / 77 (auto/); af2 23:51 Pulse 74 MON; Resp 18 S; Pulse Ox 93% on R/A; af2 10/02 00:06 BP 164 / 72 (auto/); af2 00:06 Pulse 70 MON; Resp 18 S; Temp 97.2(O); Pulse Ox 93% on R/A; af2 MDM: 10/01 15:36 NS 0.9% 1000 ml IV at bolus once ordered. ke 15:36 Ondansetron 4 mg IVP once ordered. ke 15:36 IV Saline Lock ordered. ke 15:36 Undress patient appropriately for examination ordered. ke 15:37 Amylase Ordered. EDMS 15:37 Basic Metabolic Profile Ordered. EDMS 15:37 CBC with Diff Ordered. EDMS 15:37 Lipase Ordered. EDMS 15:37 Liver Profile Ordered. EDMS 15:37 Prothrombin Time Profile\E\INR Ordered. EDMS 15:37 Urinalysis Ordered. EDMS 15:37 NOTHING BY MOUTH+DIET ordered. EDMS 15:38 Abdomen, Flat\E\Upright,PA Chest Ordered. EDMS 15:39 Solu-MEDROL 125 mg IVP once ordered. ke 15:39 diphenhydrAMINE 25 mg IVP once ordered. ke 17:34 Basic Metabolic Profile Reviewed. ke 17:34 CBC with Diff Reviewed. ke 17:34 Liver Profile Reviewed. ke 17:34 Amylase Reviewed. ke 17:34 Lipase Reviewed. ke 17:34 Abdomen, Flat\E\Upright,PA Chest Reviewed. ke 17:45 Urinalysis Reviewed. ke 18:19 Financial registration complete. zo 18:52 GI Cocktail - (Alum-Mag Hydroxide-Simeth 30 ml, Lidocaine 10 ml, Hyoscyamine 10 ml) PO ke once; Pre-mixed 50mL unit dose ordered. 19:05 [facility] Payment Agreement was scanned into [employer] and attached to record. zo 19:54 ELECTROCARDIOGRAM ADULT ordered. EDMS 19:54 TROPONIN Ordered. EDMS 20:10 Aspirin 325 mg PO once ordered. mlc 20:12 Written Provider Order was scanned into [employer] and attached to record. ajs 20:33 Prothrombin Time Profile\E\INR Reviewed. ke 20:47 TROPONIN Reviewed. ke 20:54 CARDIAC INJURY PROFILE Ordered. EDMS 20:59 Customer Support Assistant/Pulse Ox/q 15 min VS ordered. ke 21:15 PORTABLE CHEST X-RAY Ordered. EDMS 21:15 Admission / Observation Status ordered. EDMS 21:16 ECHOCARD,DOPPLER/COLOR FLOW ordered. EDMS 21:16 ELECTROCARDIOGRAM ADULT ordered. EDMS 21:16 CONSISTENT CARBOHYDRATES ordered. EDMS 21:17 CREATININE,RANDOM URINE Ordered. EDMS 21:17 SODIUM,RANDOM URINE Ordered. EDMS 21:17 COMPLETE BLOOD COUNT Ordered. EDMS 21:17 CARDIAC MARKER PANEL Ordered. EDMS 21:17 CARDIAC MARKER PANEL Ordered. EDMS 21:17 CARDIAC MARKER PANEL Ordered. EDMS 21:17 RESPIRATORY PANEL Ordered. EDMS 21:17 BLOOD CULTURES Ordered. EDMS 21:17 BLOOD CULTURES Ordered. EDMS 21:18 GASTROINTESTINAL (GI) PANEL Ordered. EDMS 21:44 RENAL US Ordered. EDMS 22:08 BASIC METABOLIC PROFILE Ordered. EDMS Administered Medications: 15:50 Drug: NS 0.9% 1000 ml [sodium chloride 0.9 % intravenous solution] Route: IV; Rate: ck1 bolus; Site: right antecubital; 16:59 Follow up: IV Status: Completed infusion ck1 15:50 Drug: Solu-MEDROL 125 mg [Solu-Medrol 500 mg intravenous solution (125 mg)] Route: IVP; ck1 Site: right antecubital; 15:50 Drug: diphenhydrAMINE 25 mg [diphenhydramine 50 mg/mL injection solution (0.5 mL)] ck1 Route: IVP; Site: right antecubital; 15:51 Drug: Ondansetron 4 mg [ondansetron HCl 2 mg/mL intravenous solution (2 mL)] Route: ck1 IVP; Site: right antecubital; 19:49 Not Given (Patient Refused): GI Cocktail - (Alum-Mag Hydroxide-Simeth Suspension 225 mlc mg-200 mg-25 mg/5 mL 30 ml, Lidocaine Liquid 2 % 10 ml, Hyoscyamine Liquid 10 ml) PO once; Pre-mixed 50mL unit dose 20:18 Drug: Aspirin 325 mg [aspirin 325 mg tablet (1 tabs)] Route: PO; [facility] [place] Signatures: Dispatcher [employer] EDDavid Tucker, FIREWORKS DISPLAY SPECIALIST FIREWORKS DISPLAY SPECIALIST Calin Hernandez RN RN mlb1 Benita Montoya RN RN ck1 Coleen Garcia Amanda ajs Strong, Shannon RN RN sls1 Vanita Cheung RN RN mlc Codie ZunigaRN RN af2 The chart was reviewed and I authenticate all verbal orders and agree with the evaluation and treatment provided.Corrections: (The following items were deleted from the chart) 20:54 20:37 CARDIAC INJURY PROFILE+LAB ordered. EDMS EDMS 21:17 21:17 GASTROINTESTINAL (GI) PANEL ordered. EDMS EDMS 21:17 21:17 GASTROINTESTINAL (GI) PANEL ordered. EDMS EDMS 22:08 21:17 BASIC METABOLIC PROFILE ordered. EDMS EDMS Attachments: 19:05 [facility] [place] Payment Agreement zo 20:12 Written Provider Order ajs MTDD
[2016-10-02] MEDS: METOPROLOL TART 50 MG TAB PO SCH ×2 (01:11→21:14)
[2016-10-02] MEDS: ROSUVASTATIN 10 MG TAB (CRESTOR) PO SCH ×2 (01:11→21:13)
[2016-10-02 04:18] LABS: MEAN CORPUSCULAR HEMOGLOBIN 28.7 pg (27.0-33.0); MEAN CORPUSCULAR HGB CONC 33.6 g/dl (32.0-36.5); MEAN CORPUSCULAR VOLUME 85.6 fl (80.0-96.0); RED CELL DISTRIBUTION WIDTH 15.4 % (11.5-14.5)
[2016-10-02 04:35] LABS: CALCIUM LEVEL 8.6 MG/DL (8.8-10.2); CREATININE FOR GFR 2.49 MG/DL (0.70-1.30); GLOMERULAR FILTRATION RATE 27.2 (>42); POTASSIUM SERUM 4.4 MEQ/L (3.5-5.1)
[2016-10-02] MEDS: VANCOMYCIN ORAL SOL 250MG/5ML ORAL SYRINGE PO SCH ×4 (06:00→23:49)
[2016-10-02] MEDS: HEPARIN SOD (PORCINE) 5000 UNITS/ML VIAL SC SCH ×3 (06:50→21:13)
--- NOTE | 2016-10-02 07:00 | REPUSA ---
CLINICAL HISTORY: Abdominal pain. TECHNIQUE: Multiple axial, sagittal and coronal CT images were obtained through the abdomen and pelvi s without administration of oral or IV contrast material. COMMENTS: The liver is of irregular contour without mass or defect. There is no intra or extrahepatic biliary d uctal dilatation. The spleen is normal. The gallbladder contains a gallstone. The pancreas is of norm al contour and attenuation characteristics. There is no evidence of adrenal mass. The kidneys are normal in size, shape and configuration. No renal or ureteral calculi are identified. There is no hydroureter or hydronephrosis. Fluid-filled dilated stomach. Fluid-filled, mildly dilate d and thickened proximal small bowel. There is no evidence for appendicitis. There is no evidence of abdominal ascites or lymphadenopathy. There is no evidence of intrinsic or extrinsic bladder mass. There is no pelvic ascites or lymphadeno cirilo. Uncomplicated PICC line diverticulosis. Images of the lung bases show no evidence of pleural or parenchymal mass. There are no pleural effusi ons. Bilateral basilar atelectatic pulmonary changes. The bony structures are free of lytic or blastic lesions. Multilevel degenerative changes are seen in volving the thoracolumbar spine. Scattered calcifications are seen involving the aorta and major branches compatible with atherosclero sis. IMPRESSION: Suspected mild hepatocellular disease. Cholelithiasis. Fluid-filled distended stomach and proximal small bowels. Surrounding fat thickening. Ileus/gastroenteritis versus developing low grade partial bowel obstruction. This is clinical evaluat ion and followup. you for your kind referral of this patient.
[2016-10-02] MEDS: CLOPIDOGREL 75 MG TAB PO SCH (07:56)
[2016-10-02] MEDS: OMEGA-3 1050MG CAPSULE PO SCH ×2 (07:56→21:14)
[2016-10-02] MEDS: PANTOPRAZOLE 40MG TAB (PROTONIX) PO SCH (07:56)
[2016-10-02] MEDS: MULTIVITAMINS/MINERALS THERAP 1 TAB PO SCH (07:56)
[2016-10-02] MEDS: HumaLOG INSULIN (NovoLOG) PER UNIT SC SCH ×4 (07:56→21:00)
[2016-10-02] MEDS: VITAMIN D 1,000 INTERNATIONAL UNITS TABLET PO SCH (07:57)
[2016-10-02] MEDS: ASPIRIN ENTERIC 325 MG TAB PO SCH (07:57)
--- NOTE | 2016-10-02 08:41 | ECGEPIP ---
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
--- NOTE | 2016-10-02 08:45 | REP ---
Portable chest, 10/02/2016, 06:37 a.m.: Comparison is 10/12/2007. There is chronic elevation of the right hemidiaphragm and chronic effacement right costophrenic angle, unchanged. There are no acute infiltrates. Cardiac size is upper normal, unchanged. Sternotomy wires are again noted. The lexis, mediastinum, and bony thorax are unremarkable. There is a lucent lesion in the medial cortex of the right humerus, proximal shaft of the. The right humerus is excluded at the film margin on the prior study. Impression: No new or acute cardiopulmonary findings. Lucent lesion in the medial cortex of the right humerus, proximal shaft. Follow-up radionuclide bone scan or MRI might be considered. Signed by Dagoberto Nevarez MD 10/02/2016 08:35 A
--- NOTE | 2016-10-02 11:01 | IPN ---
DATE: 10/02/2016 Patient seen and examined at the bedside. Chart has been reviewed. This morning, the patient denies any chest pain, pressure or tightness, shortness of breath, lightheadedness, or dizziness. He was dry heaving at the bedside with a cough which was non productive. The patient was noted to have urticarial lesions bilateral upper and lower extremities, most likely secondary to clindamycin, and persistent diarrhea as an outpatient. He has had no bowel movements since he has been in the hospital. Per nursing, the patient was noted on telemetry to have persistent ST depressions. Per Dr. Rodriguez and Dr. Tony's conversation last night, the patient is continued on aspirin and Plavix. Troponin of 0.98 is trending down from peak troponin of 1.38. He currently is chest pain free. Abnormal troponin was thought to be secondary to acute renal failure with creatinine of 2.99. Output was negative 875. The patient was placed on normal saline at 75 mL/hr. Vitals: Temperature 96.4, pulse 62, respiratory rate 20, blood pressure 164/70 and 98% on room air. Generally, patient is in no respiratory distress. He is awake, alert and answering questions appropriately. No use of respiratory accessory muscles. Lungs are clear to auscultation. No wheezing, rales or rhonchi. Heart: S1, S2. Sinus rhythm. Abdomen is soft, nontender, nondistended. Positive bowel sounds. Extremities: No pitting edema. Skin: Patient has multiple urticarial raised erythematous lesions in bilateral upper and lower extremities that are nonpruritic, nonulcerative. CT of abdomen and pelvis shows suspected mild hepatocellular disease, cholelithiasis, fluid filled stomach and proximal small bowel, surrounding fat thickening, ileus or gastroenteritis versus developing low partial bowel obstruction. Renal ultrasound with no acute findings. Multiple bilateral simple renal cysts. Abdominal x-ray shows lucent lesion in the medial cortex, proximal right humeral shaft. ASSESSMENT AND PLAN: This is a 75-year-old male with history of coronary artery disease (CAD), coronary artery bypass graft (CABG) fourteen years ago at [facility], peripheral vascular disease, history of renal artery stenting , dyslipidemia, hypertension, non insulin dependent diabetes who presented with generalized weakness and rash over the past two days. The patient had been complaining of lethargy and malaise with some nausea, vomiting and diarrhea, muscles aches at that time and subjective fevers at home. He was seen at urgent care four days ago and was given clindamycin. Since then, a rash developed with worsening lethargy and malaise, unable to eat much. In the emergency room (ER), he was found to have ST depressions in the lateral leads and initial troponin of 1.38. The patient was given aspirin and Plavix per Dr. Rodriguez. Cardiology conducted by the emergency room suggested cycling enzymes and continuation of aspirin and Plavix and for the hospitalist service to admit for management. CURRENT ISSUES: 1. Chest pain, resolved, with abnormal EKG and positive troponin, thought to be secondary to worsening renal failure. Awaiting echo result. Currently on aspirin and Plavix, statin and metoprolol. The patient is a poor candidate for cardiac catheterization due to chronic kidney disease with creatinine of 2.99 and leukocytosis with white count of 24,000. 2. Leukocytosis secondary to clindamycin. Check GI panel. Rule out Clostridium difficile. Discontinued clindamycin. Urinalysis has no infection. The patient has not been placed on empiric antibiotics. CT of abdomen and pelvis showed ileus. Will start empirically on oral vancomycin and intravenous Flagyl until the GI panel rules out C. Difficile. 3. Acute on chronic kidney disease, likely secondary to decreased oral intake, nausea, vomiting, and diarrhea. Baseline creatinine is 1.5 to 1.9 in 2007 with creatinine of 2.99. Hold nephrotoxins. Renal ultrasound is unremarkable. Gentle hydration, normal saline at 75 an hour and repeat metabolic panel. Monitor for worsening symptoms. 4. Ileus, gastroenteritis, questionable early partial small bowel obstruction. Monitor clinically. Currently having diarrhea. Will continue with IV Flagyl and oral vancomycin. Rule out C. Difficile. Once C. Difficile is ruled out, may start on Cipro and Flagyl. Conservative management. Clears to full liquid diet. If increasing abdominal distention were to occur or severe lactic acidosis despite fluid hydration, consult surgery for questionable bowel obstruction. Keep nothing by mouth. 5. Dyslipidemia, on statins. 6. Type 2 diabetes, on sliding scale for now. 7. Reflux, on Protonix. 8. Subcutaneous heparin for deep vein thrombosis (DVT) prophylaxis. [facility]
[2016-10-02] MEDS: metroNIDAZOLE 500 MG in APPROPRIATE DILUENT 1 EA IV SCH ×2 (11:14→17:42)
[2016-10-02] MEDS: ONDANSETRON 4MG/2ML VIAL (J2405) IV PRN (11:14)
[2016-10-02] MEDS: HYDROCORTISONE 1% OINTMENT 30GM TOP SCH ×2 (11:14→21:22)
[2016-10-02] MEDS ORDERED: GI COCKTAIL 50ML BTL(HYOSCYAMINE/MAALOX/LIDOCAINE VISCOUS)(1:3:1) PO PRN (12:15)
[2016-10-02] MEDS ORDERED: NS 1,000 ML IV SCH ×2 (14:00)
--- NOTE | 2016-10-02 15:49 | ECGEPIP ---
Stationary ECG Study [facility] Test Date: 2016-10-01 Pat Name: KIMBERLY JOHNSON Department: Room: E5867-57 Gender: M Cna Pct: miguel : 1940 Requested By: WILL SKAGGS Order Number: [id number] Reading MD: Ayah Alberts Measurements Intervals [place] Rate: 86 P: 65 [place]: 144 QRS: 85 QRSD: 124 T: 269 QT: 368 QTc: 440 Interpretive Statements SINUS RHYthm Left ventricular hypertrophy WITH STTABN/ILBBB STTABN SECONDARY TO Left ventricular hypertrophy AND OR ISCHEMIa SIMILAR TO EARLIER EXCEPT MORE EXAGGERATED ST ABN AND SLIGHT AXIS CHANGE FROM RIGHTWARD Electronically Signed On 10-02-2016 15:49:21 EST by Ayah Alberts
--- NOTE | 2016-10-02 19:04 | REP ---
Right humerus: Two views. History: Right humeral lucency. Comparison is made with chest x-ray from earlier on this date showing a radiolucency in the proximal humerus. Findings: There is a benign osteochondroma projecting medially from the proximal humerus. This measures 5.4 cm in length by 2.4 cm in depth. The glenohumeral and acromioclavicular joints are normally aligned. Mild osteoarthritic changes are seen. An intravenous cannula is seen in the antecubital soft tissues at the elbow. Mild olecranon process spurring is seen. Impression: 5 cm benign osteochondroma of the proximal humerus on the right. Signed by Sergey Resendiz MD 10/02/2016 07:59 P
--- NOTE | 2016-10-02 19:05 | REP ---
KUB: Two views. History: Nausea. Comparison KUB study October 01, 2016 Findings: Two views of the abdomen demonstrate air and stool in a nondistended colon. There are some air and fluid in one or two loops of small bowel. These are less prominent than on the prior study. Vascular calcification and left renal and left iliac stents are again seen. Surgical clips as before. Impression: Nonspecific small bowel loops improved from the prior study. No evidence of free air. Signed by Sergey Resendiz MD 10/02/2016 07:59 P
--- NOTE | 2016-10-02 21:08 | ECHO ---
DATE OF PROCEDURE: 10/02/2016 REFERRING PHYSICIAN: Dr. Tony INDICATION: Abnormal ECG. HEIGHT: 170 cm WEIGHT: 79.6 kg MEASUREMENTS: Left atrium: 4.3 cm Aortic root: 3.5 cm Ventricular septum: 1.29 cm Posterior wall: 1.34 cm Left ventricle diastole: 5.2 cm LVOT: 1.8 cm Inferior vena cava: 1.2 cm DOPPLER MEASUREMENTS: Mild aortic regurgitation. Aortic valve velocity: 133 cm/s LVOT velocity: 94.7 cm/s LVOT VTI: 21.0 cm Moderate mitral regurgitation. Mitral E velocity: 84.9 cm/s Mitral A velocity: 97.7 cm/s Mitral deceleration time: 236 ms Pulmonary artery systolic pressure: 24 mmHg by pulmonary acceleration time method. MITRAL ANNULAR TISSUE DOPPLER: E prime septal: 5.8 cm/s E prime lateral: 8.3 cm/s DESCRIPTION: Rhythm was sinus. Image quality was fair. No pericardial effusion. This is a 2D, M-mode, color flow Doppler and pulse wave Doppler examination that included mitral annular tissue Doppler. CONCLUSIONS: 1. Mild concentric left ventricular hypertrophy. Normal left ventricle (LV) wall motion and wall thickening. Normal LV systolic function. Left ventricular ejection fraction (LVEF) 60% by visual esitmate. Grade 1 LV diastolic dysfunction (impaired relaxation filling pattern). 2. Moderate mitral annular calcification. No mitral stenosis. Moderate mitral regurgitation. 3. Mild left atrial dilatation. 4. Mild aortic valve sclerosis. Mild aortic regurgitation.
[2016-10-02] MEDS: amLODIPine 10 MG TAB PO SCH (21:14)
[2016-10-02] MEDS ORDERED: hydrOXYzine 25 MG TAB PO ONE (22:30)
[2016-10-03] VITALS (7 sets, daily range): BP systolic 109–165; BP diastolic 57–83; PULSE 63–67
[2016-10-03] MEDS: HEPARIN SOD (PORCINE) 5000 UNITS/ML VIAL SC SCH ×3 (05:22→21:33)
[2016-10-03] MEDS: VANCOMYCIN ORAL SOL 250MG/5ML ORAL SYRINGE PO SCH ×2 (05:22→11:54)
[2016-10-03] MEDS: D5W/0.45% SODIUM CHLORIDE 1,000 ML IV SCH ×2 (05:23→18:01)
[2016-10-03] MEDS: metroNIDAZOLE 500 MG in APPROPRIATE DILUENT 1 EA IV SCH ×3 (05:23→18:01)
[2016-10-03] MEDS: ACETAMINOPHEN TAB 650MG DOSE (2X325MG) PO PRN (05:24)
[2016-10-03 05:29] LABS: MEAN CORPUSCULAR HEMOGLOBIN 27.9 pg (27.0-33.0); MEAN CORPUSCULAR HGB CONC 32.4 g/dl (32.0-36.5); RED CELL DISTRIBUTION WIDTH 15.6 % (11.5-14.5); WHITE BLOOD COUNT 19.5 K/mm3 (4.0-10.0)
[2016-10-03 05:32] LABS: CALCIUM LEVEL 7.7 MG/DL (8.8-10.2); CREATININE FOR GFR 1.78 MG/DL (0.70-1.30); GLOMERULAR FILTRATION RATE 40.1 (>42); POTASSIUM SERUM 4.2 MEQ/L (3.5-5.1)
[2016-10-03] MEDS: PANTOPRAZOLE 40MG TAB (PROTONIX) PO SCH (08:23)
[2016-10-03] MEDS: VITAMIN D 1,000 INTERNATIONAL UNITS TABLET PO SCH (08:23)
[2016-10-03] MEDS: OMEGA-3 1050MG CAPSULE PO SCH ×2 (08:23→21:33)
[2016-10-03] MEDS: CLOPIDOGREL 75 MG TAB PO SCH (08:23)
[2016-10-03] MEDS: MULTIVITAMINS/MINERALS THERAP 1 TAB PO SCH (08:23)
[2016-10-03] MEDS: ASPIRIN ENTERIC 325 MG TAB PO SCH (08:23)
[2016-10-03] MEDS: HYDROCORTISONE 1% OINTMENT 30GM TOP SCH ×2 (08:24→21:35)
[2016-10-03] MEDS: HumaLOG INSULIN (NovoLOG) PER UNIT SC SCH ×4 (08:24→20:52)
--- NOTE | 2016-10-03 09:17 | REP ---
CT of the chest without IV contrast: Comparison is a plain film PA and lateral study of the chest dated 10/12 2007. There is minor discoid atelectasis in the lung bases. There are no infiltrates, effusions, or masses. Occasional scattered small bullae are noted bilaterally particularly in the upper lobes compatible with bullous emphysema. There is no mediastinal or axillary lymphadenopathy. The study is insensitive for hilar lymphadenopathy in the absence of IV contrast. The unenhanced thoracic aorta is unremarkable except for occasional calcified atheroma. Cardiac size is normal. There are sternotomy wires. Calcified vascular atheroma is noted in the coronary arteries. The visualized upper abdomen there is a calculus in the gallbladder. There is no evidence of acute cholecystitis or biliary duct dilatation. The visualized portion of the pancreas and spleen are unremarkable. There are multiple renal cysts, some hyperdense cyst in the visualized portions of the kidneys. The adrenals are unremarkable. Impression: No acute cardiopulmonary findings. There are scattered bulla throughout the lung ponce compatible with bullous emphysema. No adenopathy or mass. Gallbladder calculus without evidence of acute cholecystitis. Bilateral renal cysts. Coronary artery calcified vascular atheroma. Signed by Dagoberto Nevarez MD 10/03/2016 09:07 A
--- NOTE | 2016-10-03 09:55 | IPN ---
DATE: 10/03/2016 Patient is seen and examined at the bedside. Chart has been reviewed. This morning, patient is requesting to be discharged home "so I can sleep better and nobody interrupts me." He denies any recurrent episodes of loose bowel movements. He denies any dry heaving, cough, shortness of breath. Patient currently has decrease in appetite but is tolerating his diet well. He still has crampy abdominal discomfort but tolerating his clears diet at the moment. Temperature 96.7, pulse 67, respiratory rate 20, blood pressure 133/65, 97% on room air. Generally, patient is awake, alert, oriented times three. He has no respiratory distress. No use of respiratory accessory muscles. Speaks in full sentences. LUNGS: Diminished, but clear to auscultation, no wheezing or rales. HEART: S1, S2, sinus rhythm. ABDOMEN: Soft, slightly tender diffusely, no rebound or guarding, positive bowel sounds. EXTREMITIES: No pitting edema. LABORATORY DATA: White count 19.5, hemoglobin 10, hematocrit 33, platelet count 266. Sodium 141, potassium 4.2, chloride 111, bicarbonate 21, BUN 82, creatinine 1.78, glucose 148, calcium 7.7, troponin 0.47, BNP 134. Microbiology: Methicillin-resistant Staphylococcus aureus (MRSA) screen is pending. Respiratory syncytial virus (RSV) negative. Two sets of blood cultures are negative. CT abdomen and pelvis showed gastroenteritis, ileus versus developing low partial bowel obstruction, cholelithiasis, suspected mild hepatocellular disease, fluid filled distal stomach and possible small bowel. Renal ultrasound 10/01/2016, shows no acute findings, multiple bilateral simple renal cysts. Abdominal xray nonspecific small bowel gas pattern, no evidence of free air. Echocardiogram mild aortic regurgitation, ejection fraction is 60%, moderate mitral annular calcification, moderate mitral regurgitation. ASSESSMENT AND PLAN: This is a 75-year-old male with moderate mitral regurgitation, diastolic dysfunction, ejection fraction (EF) of 60%, mild aortic regurgitation, coronary artery disease (CAD), coronary artery bypass graft (CABG ) 14 years ago at [facility], peripheral vascular disease, renal artery stenting, dyslipidemia, hypertension, non-insulin dependent type 2 diabetes, presents with upper respiratory infection, given clindamycin at urgent care, developed a maculopapular drug rash which is generalized, and presents with worsening weakness, found to have acute on chronic renal failure with a creatinine of 2.99, an abnormal troponin level, and complaints of diarrhea. Patient was admitted. CT abdomen and pelvis showed gastroenteritis, ileus, or early partial small bowel obstruction. Due to concerns for Clostridium (C) difficile, patient was empirically started on oral vancomycin, intravenous (IV) Flagyl with slight decrease in white count from 24.8 to 19.5. He has had no diarrhea since. Kidneys have improved, baseline of 1.5 creatinine, from 2.99 to 1.78 with fluid hydration with no complaints of shortness of breath. CURRENT ISSUES: 1. Drug rash secondary to clindamycin. Patient is currently on topical steroids, appears to be doing well with that. He does not complain of any pruritus, therefore Atarax has not been given. 2. Acute on chronic renal failure. Baseline creatinine of 1.5. Patient presented with a creatinine of 2.99 due to diarrhea and volume depletion. He is currently at 1.78, tolerating his clears diet. 3. Diarrhea. Rule out Clostridium (C) difficile. Patient has not had a bowel movement since admission. We have empirically started him on oral vancomycin and IV Flagyl due to significant abdominal pain, diarrhea, dehydration, and increased white count. He is currently tolerating clear liquids. Will advance to full liquid diet. Monitor for any new changes. Patient's repeat abdominal xray shows no free air and no signs of complete bowel obstruction. He currently has been passing gas and has not had any diarrhea. 4. Leukocytosis. Initially thought to be reactive secondary to recent gastroenteritis and upper respiratory infection. Patient has been empirically started on vancomycin and intravenous Flagyl due to severe leukocytosis, abdominal pain, gastroenteritis found on CT abdomen. Gastrointestinal (GI) panel has not been obtained as the patient has not had any bowel movements here to complete workup for severe leukocytosis. Will obtain a CT chest to find whether there is an underlying consolidation or infiltrate. 5. Acute on chronic renal failure stage III. Improved with fluid hydration almost back to baseline. Patient is requesting to be discharged home today despite abnormal labs. Will continue with advancing his diet to full liquid diet, hydration. If at baseline by this afternoon and tolerating his diet may be discharged home if white count is also improved. At this time we have no sample of stool. 6. History of coronary artery disease (CAD), coronary artery bypass graft (CABG). No acute ischemia. Currently denies any chest pain, pressure, tightness, shortness of breath. Troponins have been trending downwards. Most likely secondary to abnormal creatinine of 2.99 on admission. DISPOSITION: Patient is requesting to be discharged, however he continues to have renal failure as well as unknown cause of leukocytosis, potentially Clostridium (C) difficile but no sample has been obtained. MTDD
[2016-10-03] MEDS: ONDANSETRON 4MG/2ML VIAL (J2405) IV PRN (10:00)
[2016-10-03 16:09] LABS: MEAN CORPUSCULAR HEMOGLOBIN 28.4 pg (27.0-33.0); MEAN CORPUSCULAR HGB CONC 32.9 g/dl (32.0-36.5); MEAN CORPUSCULAR VOLUME 86.4 fl (80.0-96.0); RED CELL DISTRIBUTION WIDTH 15.6 % (11.5-14.5); WHITE BLOOD COUNT 15.7 K/mm3 (4.0-10.0)
[2016-10-03 16:24] LABS: CALCIUM LEVEL 7.1 MG/DL (8.8-10.2); CREATININE FOR GFR 1.73 MG/DL (0.70-1.30); GLOMERULAR FILTRATION RATE 41.4 (>42); POTASSIUM SERUM 4.2 MEQ/L (3.5-5.1)
[2016-10-03] MEDS ORDERED: hydrOXYzine 25 MG TAB PO ONE (20:30)
[2016-10-03] MEDS: amLODIPine 10 MG TAB PO SCH (21:34)
[2016-10-03] MEDS: METOPROLOL TART 50 MG TAB PO SCH (21:34)
[2016-10-03] MEDS: ROSUVASTATIN 10 MG TAB (CRESTOR) PO SCH (21:34)
[2016-10-03 22:20] LABS: CREATININE FOR GFR 1.75 MG/DL (0.70-1.30); GLOMERULAR FILTRATION RATE 40.9 (>42); POTASSIUM SERUM 3.8 MEQ/L (3.5-5.1)
--- NOTE | 2016-10-04 01:13 | EDDOCDS ---
Physician Documentation [facility] Name: Andrew Uribe Age: 75 yrs Sex: Male : 1940 Arrival Date: 10/01/2016 Time: 15:13 Bed 15 Private MD: Justus Lockwood [place] Disposition: 10/01/16 17:50 Hospitalization ordered by Sloan Lee for Inpatient Admission. Preliminary diagnosis are Dehydration, Acute kidney failure. - Bed requested for PCU. - Status is Inpatient Admission. af2 - Condition is Stable. - Problem is an acute exacerbation. - Symptoms are unchanged. Historical: - Allergies: PENICILLINS; clindamycin HCl; - Home Meds: 1. prednisone 10 mg Oral tab once daily 2. pentoxifylline 400 mg oral TbER 1 tab 2 times per day 3. lisinopril 40 mg Oral tab 0.5 tab once daily 4. Plavix 75 mg Oral tab 1 tab once daily 5. metoprolol tartrate 50 mg Oral tab nightly 6. amlodipine 5 mg Oral tab 1 tab once daily 7. gemfibrozil 600 mg Oral tab 1 tab daily 8. glipizide 5 mg Oral tab 1 tab once daily 9. ranitidine HCl 300 mg Oral cap 1 cap once daily 10. Crestor 20 mg Oral tab 1 tab once daily 11. multivitamin Oral tab 12. aspirin 325 mg Oral tab 1 tab once daily 13. Fish Oil 1,000 mg Oral cap daily 14. turmeric root extract 500 mg oral cap daily - PMHx: Hypertension; MD; High Cholesterol; - PSHx: CABG; Stents, Coronary; Ureteral Stents; - Social history: Smoking status: Patient uses tobacco products, heavy tobacco smoker. No barriers to communication noted, The patient speaks fluent Nicaraguan, Speaks appropriately for age. - Family history: Not pertinent. - : The pt / caregiver states he / she is on anticoagulants: Plavix. Home medication list is obtained from the patient. - Exposure Risk Screening:: None identified. Vital Signs: 10/01 15:16 BP 135 / 81; Pulse 88; Resp 24; Temp 97.6; Pulse Ox 100% ; elp 18:28 BP 162 / 70; Pulse 75; Resp 20; Temp 97.7; Pulse Ox 98% ; Pain 6/10; jam1 20:18 BP 180 / 83; Pulse 90; Resp 20; Temp 96.4(T); Pulse Ox 98% on R/A; mlc 21:08 BP 144 / 68 (auto/); af2 21:09 Pulse 94 MON; Pulse Ox 94% ; af2 21:21 BP 152 / 72 (auto/); af2 21:21 BP 152 / 72 Sitting; Pulse 96 MON; Pulse Ox 95% on R/A; af2 22:35 Pulse 90 MON; Resp 18 S; Pulse Ox 94% on R/A; af2 22:36 BP 127 / 60 (auto/); af2 22:48 Pulse 88 MON; Resp 18 S; Pulse Ox 97% on R/A; af2 22:51 BP 175 / 78 (auto/); af2 23:06 BP 162 / 62 (auto/); af2 23:06 Pulse 76 MON; Resp 18 S; Pulse Ox 93% on R/A; af2 23:21 BP 162 / 72 (auto/); af2 23:21 Pulse 76 MON; Resp 18 S; Pulse Ox 92% on R/A; af2 23:36 BP 191 / 76 (auto/); af2 23:36 Pulse 80 MON; Resp 18 S; Pulse Ox 95% on R/A; af2 23:51 BP 183 / 77 (auto/); af2 23:51 Pulse 74 MON; Resp 18 S; Pulse Ox 93% on R/A; af2 10/02 00:06 BP 164 / 72 (auto/); af2 00:06 Pulse 70 MON; Resp 18 S; Temp 97.2(O); Pulse Ox 93% on R/A; af2 MDM: 10/01 15:36 NS 0.9% 1000 ml IV at bolus once ordered. ke 15:36 Ondansetron 4 mg IVP once ordered. ke 15:36 IV Saline Lock ordered. ke 15:36 Undress patient appropriately for examination ordered. ke 15:37 Amylase Ordered. EDMS 15:37 Basic Metabolic Profile Ordered. EDMS 15:37 CBC with Diff Ordered. EDMS 15:37 Lipase Ordered. EDMS 15:37 Liver Profile Ordered. EDMS 15:37 Prothrombin Time Profile\E\INR Ordered. EDMS 15:37 Urinalysis Ordered. EDMS 15:37 NOTHING BY MOUTH+DIET ordered. EDMS 15:38 Abdomen, Flat\E\Upright,PA Chest Ordered. EDMS 15:39 Solu-MEDROL 125 mg IVP once ordered. ke 15:39 diphenhydrAMINE 25 mg IVP once ordered. ke 17:34 Basic Metabolic Profile Reviewed. ke 17:34 CBC with Diff Reviewed. ke 17:34 Liver Profile Reviewed. ke 17:34 Amylase Reviewed. ke 17:34 Lipase Reviewed. ke 17:34 Abdomen, Flat\E\Upright,PA Chest Reviewed. ke 17:45 Urinalysis Reviewed. ke 18:19 Financial registration complete. zo 18:52 GI Cocktail - (Alum-Mag Hydroxide-Simeth 30 ml, Lidocaine 10 ml, Hyoscyamine 10 ml) PO ke once; Pre-mixed 50mL unit dose ordered. 19:05 [facility] [place] [facility] Payment Agreement was scanned into [employer] and attached to record. zo 19:54 ELECTROCARDIOGRAM ADULT ordered. EDMS 19:54 TROPONIN Ordered. EDMS 20:10 Aspirin 325 mg PO once ordered. mlc 20:12 Written Provider Order was scanned into [employer] and attached to record. ajs 20:33 Prothrombin Time Profile\E\INR Reviewed. ke 20:47 TROPONIN Reviewed. ke 20:54 CARDIAC INJURY PROFILE Ordered. EDMS 20:59 Check Scaler/Pulse Ox/q 15 min VS ordered. ke 21:15 PORTABLE CHEST X-RAY Ordered. EDMS 21:15 Admission / Observation Status ordered. EDMS 21:16 ECHOCARD,DOPPLER/COLOR FLOW ordered. EDMS 21:16 ELECTROCARDIOGRAM ADULT ordered. EDMS 21:16 CONSISTENT CARBOHYDRATES ordered. EDMS 21:17 CREATININE,RANDOM URINE Ordered. EDMS 21:17 SODIUM,RANDOM URINE Ordered. EDMS 21:17 COMPLETE BLOOD COUNT Ordered. EDMS 21:17 CARDIAC MARKER PANEL Ordered. EDMS 21:17 CARDIAC MARKER PANEL Ordered. EDMS 21:17 CARDIAC MARKER PANEL Ordered. EDMS 21:17 RESPIRATORY PANEL Ordered. EDMS 21:17 BLOOD CULTURES Ordered. EDMS 21:17 BLOOD CULTURES Ordered. EDMS 21:18 GASTROINTESTINAL (GI) PANEL Ordered. EDMS 21:44 RENAL US Ordered. EDMS 22:08 BASIC METABOLIC PROFILE Ordered. EDMS 02/08 10:41 T-Sheet-- Draft Copy was scanned into [employer] and attached to record. gb 10:42 ECG/EKG was scanned into [employer] and attached to record. gb 10:42 ECG/EKG was scanned into [employer] and attached to record. gb 10:43 Radiology Report was scanned into [employer] and attached to record. gb Administered Medications: 10/01 15:50 Drug: NS 0.9% 1000 ml [sodium chloride 0.9 % intravenous solution] Route: IV; Rate: ck1 bolus; Site: right antecubital; 16:59 Follow up: IV Status: Completed infusion ck1 15:50 Drug: Solu-MEDROL 125 mg [Solu-Medrol 500 mg intravenous solution (125 mg)] Route: IVP; ck1 Site: right antecubital; 15:50 Drug: diphenhydrAMINE 25 mg [diphenhydramine 50 mg/mL injection solution (0.5 mL)] ck1 Route: IVP; Site: right antecubital; 15:51 Drug: Ondansetron 4 mg [ondansetron HCl 2 mg/mL intravenous solution (2 mL)] Route: ck1 IVP; Site: right antecubital; 19:49 Not Given (Patient Refused): GI Cocktail - (Alum-Mag Hydroxide-Simeth Suspension 225 mlc mg-200 mg-25 mg/5 mL 30 ml, Lidocaine Liquid 2 % 10 ml, Hyoscyamine Liquid 10 ml) PO once; Pre-mixed 50mL unit dose 20:18 Drug: Aspirin 325 mg [aspirin 325 mg tablet (1 tabs)] [place]: [place] [facility] [place] Signatures: Dispatcher [employer] EDMS Ana M Narvaez, Reg Reg gb David Titus, DIRECTOR SPEECH DIRECTOR SPEECH Calin Hernandez RN RN mlb1 Benita MontoyaRN RN ck1 Coleen Garcia Amanda ajs Strong, Shannon, RN RN sls1 Vanita Cheung RN RN mlc Codie Zuniga,RN RN af2 The chart was reviewed and I authenticate all verbal orders and agree with the evaluation and treatment provided.Corrections: (The following items were deleted from the chart) 20:54 20:37 CARDIAC INJURY PROFILE+LAB ordered. EDMS EDMS 21:17 21:17 GASTROINTESTINAL (GI) PANEL ordered. EDMS EDMS 21:17 21:17 GASTROINTESTINAL (GI) PANEL ordered. EDMS EDMS 22:08 21:17 BASIC METABOLIC PROFILE ordered. EDWA EDMS Attachments: 19:05 [facility] Payment Agreement zo 20:12 Written Provider Order ajs 10/02 10:41 T-Sheet-- Draft Copy gb 10:42 ECG/EKG gb Chart Complete MTDD
--- NOTE | 2016-10-04 01:13 | EDDOCDS ---
Physician Documentation [facility] Name: Andrew Uribe Age: 75 yrs Sex: Male : 1940 Arrival Date: 10/01/2016 Time: 15:13 Bed 15 Private MD: Justus Lockwood [place] Disposition: 10/01/16 17:50 Hospitalization ordered by Sloan Lee for Inpatient Admission. Preliminary diagnosis are Dehydration, Acute kidney failure. - Bed requested for PCU. - Status is Inpatient Admission. af2 - Condition is Stable. - Problem is an acute exacerbation. - Symptoms are unchanged. Historical: - Allergies: PENICILLINS; clindamycin HCl; - Home Meds: 1. prednisone 10 mg Oral tab once daily 2. pentoxifylline 400 mg oral TbER 1 tab 2 times per day 3. lisinopril 40 mg Oral tab 0.5 tab once daily 4. Plavix 75 mg Oral tab 1 tab once daily 5. metoprolol tartrate 50 mg Oral tab nightly 6. amlodipine 5 mg Oral tab 1 tab once daily 7. gemfibrozil 600 mg Oral tab 1 tab daily 8. glipizide 5 mg Oral tab 1 tab once daily 9. ranitidine HCl 300 mg Oral cap 1 cap once daily 10. Crestor 20 mg Oral tab 1 tab once daily 11. multivitamin Oral tab 12. aspirin 325 mg Oral tab 1 tab once daily 13. Fish Oil 1,000 mg Oral cap daily 14. turmeric root extract 500 mg oral cap daily - PMHx: Hypertension; ID; High Cholesterol; - PSHx: CABG; Stents, Coronary; Ureteral Stents; - Social history: Smoking status: Patient uses tobacco products, heavy tobacco smoker. No barriers to communication noted, The patient speaks fluent Cymro, Speaks appropriately for age. - Family history: Not pertinent. - : The pt / caregiver states he / she is on anticoagulants: Plavix. Home medication list is obtained from the patient. - Exposure Risk Screening:: None identified. Vital Signs: 10/01 15:16 BP 135 / 81; Pulse 88; Resp 24; Temp 97.6; Pulse Ox 100% ; elp 18:28 BP 162 / 70; Pulse 75; Resp 20; Temp 97.7; Pulse Ox 98% ; Pain 6/10; jam1 20:18 BP 180 / 83; Pulse 90; Resp 20; Temp 96.4(T); Pulse Ox 98% on R/A; mlc 21:08 BP 144 / 68 (auto/); af2 21:09 Pulse 94 MON; Pulse Ox 94% ; af2 21:21 BP 152 / 72 (auto/); af2 21:21 BP 152 / 72 Sitting; Pulse 96 MON; Pulse Ox 95% on R/A; af2 22:35 Pulse 90 MON; Resp 18 S; Pulse Ox 94% on R/A; af2 22:36 BP 127 / 60 (auto/); af2 22:48 Pulse 88 MON; Resp 18 S; Pulse Ox 97% on R/A; af2 22:51 BP 175 / 78 (auto/); af2 23:06 BP 162 / 62 (auto/); af2 23:06 Pulse 76 MON; Resp 18 S; Pulse Ox 93% on R/A; af2 23:21 BP 162 / 72 (auto/); af2 23:21 Pulse 76 MON; Resp 18 S; Pulse Ox 92% on R/A; af2 23:36 BP 191 / 76 (auto/); af2 23:36 Pulse 80 MON; Resp 18 S; Pulse Ox 95% on R/A; af2 23:51 BP 183 / 77 (auto/); af2 23:51 Pulse 74 MON; Resp 18 S; Pulse Ox 93% on R/A; af2 10/02 00:06 BP 164 / 72 (auto/); af2 00:06 Pulse 70 MON; Resp 18 S; Temp 97.2(O); Pulse Ox 93% on R/A; af2 MDM: 10/01 15:36 NS 0.9% 1000 ml IV at bolus once ordered. ke 15:36 Ondansetron 4 mg IVP once ordered. ke 15:36 IV Saline Lock ordered. ke 15:36 Undress patient appropriately for examination ordered. ke 15:37 Amylase Ordered. EDMS 15:37 Basic Metabolic Profile Ordered. EDMS 15:37 CBC with Diff Ordered. EDMS 15:37 Lipase Ordered. EDMS 15:37 Liver Profile Ordered. EDMS 15:37 Prothrombin Time Profile\E\INR Ordered. EDMS 15:37 Urinalysis Ordered. EDMS 15:37 NOTHING BY MOUTH+DIET ordered. EDMS 15:38 Abdomen, Flat\E\Upright,PA Chest Ordered. EDMS 15:39 Solu-MEDROL 125 mg IVP once ordered. ke 15:39 diphenhydrAMINE 25 mg IVP once ordered. ke 17:34 Basic Metabolic Profile Reviewed. ke 17:34 CBC with Diff Reviewed. ke 17:34 Liver Profile Reviewed. ke 17:34 Amylase Reviewed. ke 17:34 Lipase Reviewed. ke 17:34 Abdomen, Flat\E\Upright,PA Chest Reviewed. ke 17:45 Urinalysis Reviewed. ke 18:19 Financial registration complete. zo 18:52 GI Cocktail - (Alum-Mag Hydroxide-Simeth 30 ml, Lidocaine 10 ml, Hyoscyamine 10 ml) PO ke once; Pre-mixed 50mL unit dose ordered. 19:05 [facility] Payment Agreement was scanned into [employer] and attached to record. zo 19:54 ELECTROCARDIOGRAM ADULT ordered. EDMS 19:54 TROPONIN Ordered. EDMS 20:10 Aspirin 325 mg PO once ordered. mlc 20:12 Written Provider Order was scanned into [employer] and attached to record. ajs 20:33 Prothrombin Time Profile\E\INR Reviewed. ke 20:47 TROPONIN Reviewed. ke 20:54 CARDIAC INJURY PROFILE Ordered. EDMS 20:59 Grievance And Appeals Coordinator/Pulse Ox/q 15 min VS ordered. ke 21:15 PORTABLE CHEST X-RAY Ordered. EDMS 21:15 Admission / Observation Status ordered. EDMS 21:16 ECHOCARD,DOPPLER/COLOR FLOW ordered. EDMS 21:16 ELECTROCARDIOGRAM ADULT ordered. EDMS 21:16 CONSISTENT CARBOHYDRATES ordered. EDMS 21:17 CREATININE,RANDOM URINE Ordered. EDMS 21:17 SODIUM,RANDOM URINE Ordered. EDMS 21:17 COMPLETE BLOOD COUNT Ordered. EDMS 21:17 CARDIAC MARKER PANEL Ordered. EDMS 21:17 CARDIAC MARKER PANEL Ordered. EDMS 21:17 CARDIAC MARKER PANEL Ordered. EDMS 21:17 RESPIRATORY PANEL Ordered. EDMS 21:17 BLOOD CULTURES Ordered. EDMS 21:17 BLOOD CULTURES Ordered. EDMS 21:18 GASTROINTESTINAL (GI) PANEL Ordered. EDMS 21:44 RENAL US Ordered. EDMS 22:08 BASIC METABOLIC PROFILE Ordered. EDMS 02/08 10:41 T-Sheet-- Draft Copy was scanned into [employer] and attached to record. gb 10:42 ECG/EKG was scanned into [employer] and attached to record. gb 10:42 ECG/EKG was scanned into [employer] and attached to record. gb 10:43 Radiology Report was scanned into [employer] and attached to record. gb Administered Medications: 10/01 15:50 Drug: NS 0.9% 1000 ml [sodium chloride 0.9 % intravenous solution] Route: IV; Rate: ck1 bolus; Site: right antecubital; 16:59 Follow up: IV Status: Completed infusion ck1 15:50 Drug: Solu-MEDROL 125 mg [Solu-Medrol 500 mg intravenous solution (125 mg)] Route: IVP; ck1 Site: right antecubital; 15:50 Drug: diphenhydrAMINE 25 mg [diphenhydramine 50 mg/mL injection solution (0.5 mL)] ck1 Route: IVP; Site: right antecubital; 15:51 Drug: Ondansetron 4 mg [ondansetron HCl 2 mg/mL intravenous solution (2 mL)] Route: ck1 IVP; Site: right antecubital; 19:49 Not Given (Patient Refused): GI Cocktail - (Alum-Mag Hydroxide-Simeth Suspension 225 mlc mg-200 mg-25 mg/5 mL 30 ml, Lidocaine Liquid 2 % 10 ml, Hyoscyamine Liquid 10 ml) PO once; Pre-mixed 50mL unit dose 20:18 Drug: Aspirin 325 mg [aspirin 325 mg tablet (1 tabs)] [place]: [place] [facility] [place] Signatures: Dispatcher [employer] EDMS Ana M Narvaez, Reg Reg gb David Titus, INTERPRETER DEAF INTERPRETER DEAF Calin Hernandez RN RN mlb1 Benita MontoyaRN RN ck1 Coleen Garcia Amanda ajs Strong, Shannon, RN RN sls1 Vanita Cheung RN RN mlc Codie Zuniga,RN RN af2 The chart was reviewed and I authenticate all verbal orders and agree with the evaluation and treatment provided.Corrections: (The following items were deleted from the chart) 20:54 20:37 CARDIAC INJURY PROFILE+LAB ordered. EDMS EDMS 21:17 21:17 GASTROINTESTINAL (GI) PANEL ordered. EDMS EDMS 21:17 21:17 GASTROINTESTINAL (GI) PANEL ordered. EDMS EDMS 22:08 21:17 BASIC METABOLIC PROFILE ordered. EDMN EDMS Attachments: 19:05 [facility] Payment Agreement zo 20:12 Written Provider Order ajs 10/02 10:41 T-Sheet-- Draft Copy gb 10:42 ECG/EKG gb Chart Complete MTDD
--- NOTE | 2016-10-04 01:14 | EDDOCDS ---
Nurse's Notes [facility] Name: Andrew Weiss Age: 75 yrs Sex: Male : 1940 Arrival Date: 10/01/2016 Time: 15:13 Bed 15 Private MD: Justus Lockwood NCFM Diagnosis: Dehydration;Acute kidney failure Presentation: 10/01 15:17 Presenting complaint: Patient states: Intermittent diarrhea for the past two weeks on mlb1 antibiotic since 09/20/16 rash to bilateral arms seen at PCP office yesterday reports weakness and fatigue since last night. Adult Sepsis Screening: The patient does not have new or worsening altered mentation. Patient's respiratory rate is less than 22. Systolic blood pressure is greater than 100. Patient has a qSOFA score of 0- Negative Sepsis Screen. Suicide/Homicide risk assessment- the patient denies having any suicidal and/or homicidal ideations and does not present with any other emotional, behavioral or mental health complaints. 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 Transition of care: patient was not received from another setting of care. 15:17 Acuity: BRIELLE Level 3 mlb1 15:17 Method Of Arrival: Wheelchair mlb1 Triage Assessment: 15:27 General: Appears distressed, Behavior is cooperative. General: Appears ill. Pain: mlb1 Location: "all over" Pain currently is 5 out of 10 on a pain scale. Neurological: No deficits noted. Respiratory: Airway is patent Respiratory effort is even. Historical: - Allergies: PENICILLINS; clindamycin HCl; - Home Meds: 1. prednisone 10 mg Oral tab once daily 2. pentoxifylline 400 mg oral TbER 1 tab 2 times per day 3. lisinopril 40 mg Oral tab 0.5 tab once daily 4. Plavix 75 mg Oral tab 1 tab once daily 5. metoprolol tartrate 50 mg Oral tab nightly 6. amlodipine 5 mg Oral tab 1 tab once daily 7. gemfibrozil 600 mg Oral tab 1 tab daily 8. glipizide 5 mg Oral tab 1 tab once daily 9. ranitidine HCl 300 mg Oral cap 1 cap once daily 10. Crestor 20 mg Oral tab 1 tab once daily 11. multivitamin Oral tab 12. aspirin 325 mg Oral tab 1 tab once daily 13. Fish Oil 1,000 mg Oral cap daily 14. turmeric root extract 500 mg oral cap daily - PMHx: Hypertension; CT; High Cholesterol; - PSHx: CABG; Stents, Coronary; Ureteral Stents; - Social history: Smoking status: Patient uses tobacco products, heavy tobacco smoker. No barriers to communication noted, The patient speaks fluent Japanese, Speaks appropriately for age. - Family history: Not pertinent. - : The pt / caregiver states he / she is on anticoagulants: Plavix. Home medication list is obtained from the patient. - Exposure Risk Screening:: None identified. Screenin:33 Screening information is obtained from the patient. Primary language is Japanese. Fall jam1 risk: No risks identified. Assistance ADL's: requires no assistance with activities of daily living. Abuse/DV Screen: The patient / caregiver reports he/she is: not in a situation that causes fear, pain or injury. Nutritional screening: No deficits noted. Exposure Risk Screening: None identified. Advance Directives: Currently, there is a health care proxy, kandis weiss of pt. There is no active DNR order. There is no living will. There is no Power of Pododermatologist. Advance directive information has not previously been placed in an [facility] medical record. Further advance directive information is declined. home support is adequate. Assessment: 15:51 General: Appears uncomfortable, Behavior is cooperative. Pain: Location: abdomen Pain mcp currently is 7 out of 10 on a pain scale. Neurological: No deficits noted. Respiratory: Airway is patent Respiratory effort is even, unlabored, Breath sounds are clear bilaterally. GI: Abdomen is non- distended Bowel sounds present X 4 quads. Abd is soft X 4 quads. Derm: Skin is pink, warm & dry. Rash noted that is red, on face, back, chest, abdomen, right arm, left arm, right leg and left leg. 16:44 General: Call Kandis Weiss () with any changes in condition or updates ck1 (home); [phone] (cell). 17:44 General: Appears in no apparent distress, to be sleeping. Behavior is appropriate for ck1 age, cooperative. Neurological: Level of Consciousness is awake, alert, obeys commands, Oriented to person, place, time. Respiratory: Respiratory effort is even, unlabored, Respiratory pattern is regular, symmetrical. GI: No deficits noted. Derm: Skin is pink, warm & dry. 18:26 General: Appears in no apparent distress, to be sleeping. Behavior is appropriate for ck1 age, cooperative. Pain: Denies pain. Neurological: Level of Consciousness is awake, alert, obeys commands, Oriented to person, place, time. Respiratory: Respiratory effort is unlabored, Respiratory pattern is regular, symmetrical. GI: No deficits noted. Derm: Skin is pink, warm & dry. 18:59 General: Pt took mouthful of GI cocktail and refuses to take any more. States he is mcp nauseous. Jose TitusSQUARE DANCE CALLER aware. 19:50 General: Appears in no apparent distress, uncomfortable, Behavior is cooperative. Pain: mlc Location: generalized. Neurological: Level of Consciousness is awake, alert, Oriented to person, place, time. Respiratory: Airway is patent Respiratory effort is even, unlabored, Respiratory pattern is regular. Derm: Rash noted that is red, on back, buttocks, chest, abdomen, right arm, left arm, right leg and left leg pt states he noticed the rash starting Friday. 20:18 Reassessment: Patient appears in no apparent distress at this time. Patient states mlc symptoms have not improved. pt medicated per order. pt sitting at bedside. . 20:18 Reassessment: Hospitalist contacted about EKG results. . mlc 21:15 General: Appears in no apparent distress, Behavior is appropriate for age, cooperative. af2 Neurological: Level of Consciousness is awake, alert, obeys commands. Cardiovascular: Rhythm is sinus rhythm No ectopy. Respiratory: Airway is patent Respiratory effort is even, unlabored. Derm: Skin is pink, warm & dry. 22:15 General: Appears in no apparent distress, Behavior is appropriate for age, cooperative. af2 Neurological: Level of Consciousness is awake, alert, obeys commands. Cardiovascular: Rhythm is sinus rhythm No ectopy. Respiratory: Airway is patent Respiratory effort is even, unlabored. Derm: Skin is pink, warm & dry. 23:15 General: Appears in no apparent distress, Behavior is appropriate for age, cooperative. af2 Neurological: Level of Consciousness is awake, alert, obeys commands. Cardiovascular: Rhythm is sinus rhythm No ectopy. Respiratory: Airway is patent Respiratory effort is even, unlabored. Derm: Skin is pink, warm & dry. 10/02 00:11 General: Appears in no apparent distress, Behavior is appropriate for age, cooperative. af2 Neurological: Level of Consciousness is awake, alert, obeys commands. Cardiovascular: Rhythm is sinus rhythm No ectopy. Respiratory: Airway is patent Respiratory effort is even, unlabored. Derm: Skin is pink, warm & dry. Vital Signs: 10/01 15:16 BP 135 / 81; Pulse 88; Resp 24; Temp 97.6; Pulse Ox 100% ; elp 18:28 BP 162 / 70; Pulse 75; Resp 20; Temp 97.7; Pulse Ox 98% ; Pain 6/10; jam1 20:18 BP 180 / 83; Pulse 90; Resp 20; Temp 96.4(T); Pulse Ox 98% on R/A; mlc 21:08 BP 144 / 68 (auto/); af2 21:09 Pulse 94 MON; Pulse Ox 94% ; af2 21:21 BP 152 / 72 (auto/); af2 21:21 BP 152 / 72 Sitting; Pulse 96 MON; Pulse Ox 95% on R/A; af2 22:35 Pulse 90 MON; Resp 18 S; Pulse Ox 94% on R/A; af2 22:36 BP 127 / 60 (auto/); af2 22:48 Pulse 88 MON; Resp 18 S; Pulse Ox 97% on R/A; af2 22:51 BP 175 / 78 (auto/); af2 23:06 BP 162 / 62 (auto/); af2 23:06 Pulse 76 MON; Resp 18 S; Pulse Ox 93% on R/A; af2 23:21 BP 162 / 72 (auto/); af2 23:21 Pulse 76 MON; Resp 18 S; Pulse Ox 92% on R/A; af2 23:36 BP 191 / 76 (auto/); af2 23:36 Pulse 80 MON; Resp 18 S; Pulse Ox 95% on R/A; af2 23:51 BP 183 / 77 (auto/); af2 23:51 Pulse 74 MON; Resp 18 S; Pulse Ox 93% on R/A; af2 10/02 00:06 BP 164 / 72 (auto/); af2 00:06 Pulse 70 MON; Resp 18 S; Temp 97.2(O); Pulse Ox 93% on R/A; af2 Vitals: 10/01 15:16 Log In Time: October 01, 2016 at 15:14. RN notified that patient meets Red Flag elp criteria. ED Course: 15:14 Patient visited by Katiana Lay PCA. elp 15:14 Patient moved to Waiting elp 15:15 Justus Lockwood is Private Physician. elp 15:16 Patient visited by Katiana Lay PCA. elp 15:16 Patient moved to Pre RCE elp 15:17 Patient visited by Calin Krause, WISAM. mlb1 15:21 Triage Initiated mlb1 15:28 Patient visited by Calin Krause, WISAM. mlb1 15:28 [facility] ke 15:28 Patient moved to Triage 1 mlb1 15:29 Patient visited by David Titus FNP. ke 15:29 Patient visited by David Titus FNP. ke 15:32 Patient moved to Pre RCE mk4 15:33 Patient moved to I7 / ck1 15:33 Pt greeted and oriented to ED. Patient advised of names of staff involved in care, [facility] location of call honey[place], wait times and NPO status. Patient has correct armband on for positive identification. Placed in gown. Bed in low position. Call light in reach. Side rails up X 1. Adult w/ patient. Door closed. 15:49 Amylase Sent. [facility] 15:49 Basic Metabolic Profile Sent. [facility] 15:49 CBC with Diff Sent. [facility] 15:49 Lipase Sent. [facility] 15:49 Liver Profile Sent. [facility] 15:49 Prothrombin Time Profile\\E\\INR Sent. [facility] 15:50 Patient visited by Benita Montoya RN. [facility] 15:53 Patient visited by Chantel Riddle RN. [facility] 15:53 The patient / caregiver is instructed regarding the plan of care and ED course. [facility] 15:53 Inserted saline lock: 20 gauge in right antecubital area and blood collected. The [facility] patient tolerated the procedure well. Labs drawn. (by ED staff). Sent per order to lab. 16:23 Patient visited by David Titus FNP. ke 16:27 Abdomen, Flat\\E\\Upright,PA Chest Returned. EDMS 16:43 Urinalysis Sent. ck1 16:48 Patient visited by David Titus FNP. ke 16:59 Patient visited by Benita Montoya,WISAM. ck1 17:09 Patient has correct armband on for positive identification. Bed in low position. Call jam1 light in reach. Side rails up X 1. Adult w/ patient. Door closed. 17:34 Patient visited by David Titus FNP. ke 17:50 Sloan hinojosa is Hospitalizing Provider. ke 19:05 [facility] Payment Agreement was scanned into Zamzee and attached to record. zo 19:52 Patient visited by Vanita Cheung RN. mlc 20:04 TROPONIN Sent. mlc 20:08 Patient visited by Veronika Azul. ajs 20:08 EKG done. (by ED staff). Reviewed by David MONCADA. ajs 20:12 Patient visited by Veronika Azul. ajs 20:12 Written Provider Order was scanned into Zamzee and attached to record. ajs 20:19 Patient visited by Vanita Cheung RN. mlc 21:09 Rissa Gaxiola RN is Primary Nurse. mlc 21:09 Codie Zuniga RN is Primary Nurse. mlc 21:09 Patient moved to 15 mlc 21:34 No procedures done that require assistance. af2 21:39 Patient visited by Codie Zuniga RN. af2 21:40 Primary Nurse role handed off by Rissa Gaxiola RN luis 22:01 Patient moved to Ultrasound dmg 22:34 Patient moved to 15 dmg 22:59 RENAL US Returned. EDMS 02 10:41 T-Sheet-- Draft Copy was scanned into Zamzee and attached to record. gb 10:42 ECG/EKG was scanned into Zamzee and attached to record. gb 10:42 ECG/EKG was scanned into Zamzee and attached to record. gb 10:43 Radiology Report was scanned into Zamzee and attached to record. gb Administered Medications: 10/01 15:50 Drug: NS 0.9% 1000 ml [sodium chloride 0.9 % intravenous solution] Route: IV; Rate: ck1 bolus; Site: right antecubital; 16:59 Follow up: IV Status: Completed infusion ck1 15:50 Drug: Solu-MEDROL 125 mg [Solu-Medrol 500 mg intravenous solution (125 mg)] Route: IVP; ck1 Site: right antecubital; 15:50 Drug: diphenhydrAMINE 25 mg [diphenhydramine 50 mg/mL injection solution (0.5 mL)] ck1 Route: IVP; Site: right antecubital; 15:51 Drug: Ondansetron 4 mg [ondansetron HCl 2 mg/mL intravenous solution (2 mL)] Route: ck1 IVP; Site: right antecubital; 19:49 Not Given (Patient Refused): GI Cocktail - (Alum-Mag Hydroxide-Simeth Suspension 225 mlc mg-200 mg-25 mg/5 mL 30 ml, Lidocaine Liquid 2 % 10 ml, Hyoscyamine Liquid 10 ml) PO once; Pre-mixed 50mL unit dose 20:18 Drug: Aspirin 325 mg [aspirin 325 mg tablet (1 tabs)] Route: PO; mlc Order Results: Lab Order: Amylase; SPEC' 10/01/16 15:46 Test: AMYLASE; Value: 52; Range: 25-115; Units: U/L; Status: F Lab Order: Basic Metabolic Profile; SPEC' 10/01/16 15:46 Test: GLUCOSE, FASTING; Value: 268; Range: 83-110; Abnormal: Above high normal; Units: MG/DL; Status: F Test: BLOOD UREA NITROGEN; Value: 88; Range: 7-18; Abnormal: Above high normal; Units: MG/DL; Status: F Test: CREATININE FOR GFR; Value: 2.99; Range: 0.70-1.30; Abnormal: Above high normal; Units: MG/DL; Status: F Test: GLOMERULAR FILTRATION RATE; Value: 22.0; Range: >42; Abnormal: Below low normal; Status: F Test: SODIUM LEVEL; Value: 139; Range: 136-145; Units: MEQ/L; Status: F Test: POTASSIUM SERUM; Value: 4.3; Range: 3.5-5.1; Units: MEQ/L; Status: F Test: CHLORIDE LEVEL; Value: 100; Range: 98-107; Units: MEQ/L; Status: F Test: CARBON DIOXIDE LEVEL; Value: 25; Range: 21-32; Units: MEQ/L; Status: F Test: ANION GAP; Value: 14; Range: 8-16; Units: MEQ/L; Status: F Test: CALCIUM LEVEL; Value: 10.0; Range: 8.8-10.2; Units: MG/DL; Status: F Test Note: ; Units are mL/min/1.73 m2 Chronic Kidney Disease Staging per NKF: Stage I & II GFR >=60 Normal to Mildly Decreased Stage III GFR 30-59 Moderately Decreased Stage IV GFR 15-29 Severely Decreased Stage V GFR <15 Very Little GFR Left ESRD GFR <15 on [employer]OV[employer] WORKER Lab Order: CBC with Diff; ANA'Yessy 10/01/16 15:46 Test: WHITE BLOOD COUNT; Value: 24.8; Range: 4.0-10.0; Abnormal: Above high normal; Units: K/mm3; Status: F Test: RED BLOOD COUNT; Value: 4.76; Range: 4.30-6.10; Units: M/mm3; Status: F Test: HEMOGLOBIN; Value: 13.2; Range: 14.0-18.0; Abnormal: Below low normal; Units: g/dl; Status: F Test: HEMATOCRIT; Value: 40.7; Range: 42.0-52.0; Abnormal: Below low normal; Units: %; Status: F Test: MEAN CORPUSCULAR VOLUME; Value: 85.5; Range: 80.0-96.0; Units: fl; Status: F Test: MEAN CORPUSCULAR HEMOGLOBIN; Value: 27.8; Range: 27.0-33.0; Units: pg; Status: F Test: MEAN CORPUSCULAR HGB CONC; Value: 32.5; Range: 32.0-36.5; Units: g/dl; Status: F Test: RED CELL DISTRIBUTION WIDTH; Value: 15.6; Range: 11.5-14.5; Abnormal: Above high normal; Units: %; Status: F Test: PLATELET COUNT, AUTOMATED; Value: 294; Range: 150-450; Units: k/mm3; Status: F Test: NEUTROPHILS %; Value: 89.9; Range: 36.0-66.0; Abnormal: Above high normal; Units: %; Status: F Test: LYMPH %; Value: 3.6; Range: 24.0-44.0; Abnormal: Below low normal; Units: %; Status: F Test: MONO %; Value: 4.0; Range: 0.0-5.0; Units: %; Status: F Test: EOS %; Value: 1.7; Range: 0.0-3.0; Units: %; Status: F Test: BASO %; Value: 0.0; Range: 0.0-1.0; Units: %; Status: F Test: LARGE UNSTAINED CELL %; Value: 0.8; Range: 0.0-4.0; Units: %; Status: F Test: NEUTROPHILS #; Value: 22.3; Range: 1.8-7.7; Abnormal: Above high normal; Units: K/mm3; Status: F Test: LYMPH #; Value: 1.1; Range: 1.5-4.5; Abnormal: Below low normal; Units: K/mm3; Status: F Test: MONO #; Value: 1.0; Range: 0.0-0.8; Abnormal: Above high normal; Units: K/mm3; Status: F Test: EOS #; Value: 0.4; Range: 0.0-0.50; Units: K/mm3; Status: F Test: BASO #; Value: 0.0; Range: 0.0-0.2; Units: K/mm3; Status: F Test: LARGE UNSTAINED CELL #; Value: 0.2; Range: 0.0-0.4; Units: K/mm3; Status: F Lab Order: Lipase; [facility] 10/01/16 15:46 Test: LIPASE; Value: 128; Range: 73-393; Units: U/L; Status: F Lab Order: Liver Profile; [facility] 10/01/16 15:46 Test: AST/SGOT; Value: 20; Range: 15-37; Units: U/L; Status: F Test: ALT/SGPT; Value: 27; Range: 12-78; Units: U/L; Status: F Test: ALKALINE PHOSPHATASE; Value: 66; Range: 45-117; Units: U/L; Status: F Test: BILIRUBIN,TOTAL; Value: 0.4; Range: 0.2-1.0; Units: MG/DL; Status: F Test: BILIRUBIN,DIRECT; Value: 0.1; Range: 0.0-0.2; Units: MG/DL; Status: F Test: TOTAL PROTEIN; Value: 6.6; Range: 6.4-8.2; Units: GM/DL; Status: F Test: ALBUMIN; Value: 3.2; Range: 3.2-5.2; Units: GM/DL; Status: F Test: ALBUMIN/GLOBULIN RATIO; Value: 0.94; Range: 1.00-1.93; Abnormal: Below low normal; Status: F Lab Order: Prothrombin Time Profile\\E\\INR; [facility] 10/01/16 15:46 Test: PROTHROMBIN TIME; Value: 13.8; Range: 12.3-14.5; Units: SECONDS; Status: F Test: INR; Value: 1.05; Status: F Test Note: ; THERAPUTIC HUMAN INR VALUES INDICATIONS NORMAL RANGES PROPHYLAXIS/TREATMENT OF: VENOUS THROMBOSIS 2.0-3.0 PULMONARY EMBOLISM 2.0-3.0 PREVENTION OF SYSTEMIC EMBOLISM FROM: TISSUE HEART VALVES 2.0-3.0 ACUTE MYOCARDIAL INFARCTION 2.0-3.0 VALVULAR HEART DISEASE 2.0-3.0 ATRIAL FIBRILLATION 2.0-3.0 MECHANICAL VALVES(HIGH RISK) 2.5-3.5 RECURRENT MYOCARDIAL INFARCTION 2.5-3.5 Lab Order: Urinalysis; [facility] 10/01/16 16:42 Test: APPEARANCE, URINE; Value: CLEAR; Range: CLEAR; Status: F Test: COLOR, URINE; Value: YELLOW; Range: YELLOW; Status: F Test: PH,URINE; Value: 5.0; Range: 5.0-9.0; Units: UNITS; Status: F Test: SPECIFIC GRAVITY URINE AUTO; Value: 1.017; Range: 1.002-1.035; Status: F Test: PROTEIN, URINE AUTO; Value: 1+; Range: NEGATIVE; Abnormal: Above high normal; Units: mg/dL; Status: F Test: GLUCOSE, URINE (UA) AUTO; Value: 1+; Range: NEGATIVE; Abnormal: Above high normal; Units: mg/dL; Status: F Test: KETONE, URINE AUTO; Value: NEGATIVE; Range: NEGATIVE; Units: mg/dL; Status: F Test: UROBILINOGEN, URINE AUTO; Value: 0.2; Range: 0.0-2.0; Units: mg/dL; Status: F Test: BILIRUBIN, URINE AUTO; Value: NEGATIVE; Range: NEGATIVE; Status: F Test: NITRITE, URINE AUTO; Value: NEGATIVE; Range: NEGATIVE; Status: F Test: LEUKOCYTE ESTERASE, URINE AUTO; Value: NEGATIVE; Range: NEGATIVE; Status: F Test: BLOOD, URINE BLOOD; Value: NEGATIVE; Range: NEGATIVE; Status: F Test: WBC, URINE AUTO; Value: 3; Range: 0-3; Units: /HPF; Status: F Test: RBC, URINE AUTO; Value: 1; Range: 0-3; Units: /HPF; Status: F Test: BACTERIA, URINE AUTO; Value: NEGATIVE; Range: NEGATIVE; Status: F Test: SQUAMOUS EPITHELIAL CELL UR AU; Value: 0; Range: 0-6; Units: /HPF; Status: F Test: HYALINE CAST, URINE AUTO; Value: 0; Range: 0-1; Units: /LPF; Status: F Lab Order: TROPONIN; SPEC'M 10/01/16 20:00 Test: TROPONIN I; Value: 1.38; Range: < 0.10; Abnormal: Above high normal; Units: NG/ML; Status: F Test Note: ; Troponin I Reference Interval for Girl Meets Dress LOCI: 99th Percentile= 0.00-0.045 ng/ml Risk Stratification: <= 0.10 ng/ml Decreased Risk for Adverse Clinical Events. 0.10-1.50 ng/ml Increased Risk for Adverse Clinical Events. Evaluation of additional criterion and/or repeat testing in 2-6 hours is suggested to rule out myocardial damage. >= 1.50 ng/ml Indicative of Myocardial Injury. Lab Order: CARDIAC INJURY PROFILE; SPEC'M 10/01/16 20:00 Test: CPK CREATINE PHOSPHOKINASE; Value: 50; Range: 39-308; Units: U/L; Status: F Test: CK-MB VALUE MASS; Value: 4.1; Range: 0.0-3.6; Abnormal: Above high normal; Units: NG/ML; Status: F Test: MB/CK RELATIVE INDEX; Value: 8.20; Range: < OR =4; Abnormal: Above high normal; Status: F Test Note: ; DIAGNOSIS CRITERIA MMB ng/ml Relative Index (RI) NON-AMI < or = 5 N/A PEREZ ZONE > 5 < or = 4 AMI > 5 > 4 Radiology Order: Abdomen, Flat\\E\\Upright,PA Chest Test: Abdomen, Flat\\E\\Upright,PA Chest REASON FOR EXAMINATION: Abdomen Pain; Acute abdominal series three views including PA chest and supine upright; abdomen:PA chest:Comparison is 10/12 2007.Lung ponce are clear. Cardiac size is; borderline enlarged, unchanged. There are sternotomy wires, unchanged.The lexis,; mediastinum, and bony thorax are unremarkable except for a lucent lesion in the; medial cortex of the proximal right humeral shaft. This area of the humerus is; excluded at the film margin of the prior study. There are no comparison studies; of the right humerus.There is no free subdiaphragmatic air.Impression:Lucent; lesion in the medial cortex of the proximal right humeral shaft. There are no; comparison studies. Follow-up radionuclide bone scan or MRI might be; considered.Abdomen, supine upright views:There are no comparisons.The bowel gas; pattern is nonspecific. There are occasional air-fluid levels in nondistended; bowel loops.There is an endovascular stent which I suspect is in the proximal; left renal artery.There are surgical homeostasis clips in the abdomen and femoral; areas.Impression:Nonspecific bowel gas; pattern. ; -------; ; ; Signed by; Dagoberto Nevarez MD 10/01/2016 04:09 P; Radiology Order: RENAL US Test: RENAL US REASON FOR EXAMINATION: acute on chronic kidney injury; ; Clinical history: Renal failure.; Findings: The urinary bladder appears unremarkable. No urinary bladder masses are seen. The right kid; kasie measures 11.1 x 5.5 x 5.9 cm. The left kidney measures 11.0 x 4.3 x 5.3 cm. The kidneys demonstra; te normal echotexture and echogenicity. There is no evidence of hydronephrosis or nephrolithiasis. Th; ere are multiple simple cysts in the kidneys bilaterally. No renal masses are seen. No free fluid is; appreciated.; Impression: No acute findings. Multiple bilateral simple renal cysts.; ; Outcome: 17:50 Decision to Hospitalize by Provider. ke 18:26 No special radiology studies were completed. ck1 21:34 Discharge Assessment: patient administered narcotics - no. The following High Risk af2 Discharge criteria are identified: None. Admitted to PCU accompanied by nurse, accompanied by tech, via stretcher, on monitor, with chart. Condition: stable. Property :Personal belongings accompany Pt. 10/02 00:12 Patient left the ED. af2 Signatures: Dispatcher [employer] EDIL Chantel Riddle, RN RN Odalis Lu, GREENHOUSE TRANSPLANTER GREENHOUSE TRANSPLANTER jamShanika Carpenter dmAna M Tucker, Reg Reg gb David Titus, VETERANS SERVICES SPECIALIST VETERANS SERVICES SPECIALIST Calin Hernandez RN RN mlb1 Benita Montoya RN RN ck1 Coleen Garcia Destiny, GREENHOUSE TRANSPLANTER GREENHOUSE TRANSPLANTER Veronika Nascimento Erin, GREENHOUSE TRANSPLANTER GREENHOUSE TRANSPLANTER Radha Jensen RN RN mk4 Vanita Cheung RN RN [facility] Codie ZunigaRN RN af2 Corrections: (The following items were deleted from the chart) 10/01 20:54 20:52 CARDIAC INJURY PROFILE+LAB sent. [facility] 10/02 00:12 00:06 Pulse 70bpm; MonitorResp 18bpm; Spontaneous; Pulse Ox 93% RA; af2 af2 Chart Complete MTDD
[2016-10-04] MEDS: metroNIDAZOLE 500 MG in APPROPRIATE DILUENT 1 EA IV SCH ×2 (03:01→11:44)
[2016-10-04] MEDS: HEPARIN SOD (PORCINE) 5000 UNITS/ML VIAL SC SCH (05:47)
[2016-10-04 06:15] LABS: MEAN CORPUSCULAR HEMOGLOBIN 28.3 pg (27.0-33.0); MEAN CORPUSCULAR HGB CONC 32.8 g/dl (32.0-36.5); MEAN CORPUSCULAR VOLUME 86.3 fl (80.0-96.0); RED CELL DISTRIBUTION WIDTH 15.7 % (11.5-14.5); WHITE BLOOD COUNT 13.1 K/mm3 (4.0-10.0)
[2016-10-04 06:20] VITALS: BP 127/60
[2016-10-04 06:29] LABS: CALCIUM LEVEL 6.7 MG/DL (8.8-10.2); CREATININE FOR GFR 1.88 MG/DL (0.70-1.30); GLOMERULAR FILTRATION RATE 37.6 (>42); POTASSIUM SERUM 3.7 MEQ/L (3.5-5.1)
[2016-10-04] MEDS: HYDROCORTISONE 1% OINTMENT 30GM TOP SCH (08:00)
[2016-10-04] MEDS: VITAMIN D 1,000 INTERNATIONAL UNITS TABLET PO SCH (08:00)
[2016-10-04] MEDS: OMEGA-3 1050MG CAPSULE PO SCH (08:00)
[2016-10-04] MEDS: PANTOPRAZOLE 40MG TAB (PROTONIX) PO SCH (08:00)
[2016-10-04] MEDS: ASPIRIN ENTERIC 325 MG TAB PO SCH (08:00)
[2016-10-04] MEDS: MULTIVITAMINS/MINERALS THERAP 1 TAB PO SCH (08:00)
[2016-10-04] MEDS: CLOPIDOGREL 75 MG TAB PO SCH (08:00)
[2016-10-04] MEDS: HumaLOG INSULIN (NovoLOG) PER UNIT SC SCH ×2 (08:01→11:52)
[2016-10-04] MEDS ORDERED: FLAG500T PO (09:05)
[2016-10-04] MEDS ORDERED: BACITAB3 PO (09:06)
[2016-10-04] MEDS: ACETAMINOPHEN TAB 650MG DOSE (2X325MG) PO PRN (13:01)
--- NOTE | 2016-10-04 22:13 | DSES ---
DATE OF ADMISSION: 10/01/2016 DATE OF DISCHARGE: 10/04/2016 PRIMARY DISCHARGE DIAGNOSES: 1. Gastroenteritis. Negative C. difficile 2. Clindamycin drug rash. 3. Acute on chronic kidney disease stage 4 secondary to diarrhea. 4. Anemia of chronic disease. 5. Abnormal troponin secondary to renal failure. 6. Severe dehydration secondary to diarrhea. DISCHARGE MEDICATIONS: - Flagyl 500 mg by mouth every 8 hours for 7 days - lactobacillus one tablet by mouth twice a day for 7 days - Norvasc 10 mg at bedtime - vitamin C 1 gram daily - aspirin 325 mg daily - vitamin D 1,000 units daily - Plavix 75 daily - tumeric 500 twice a day - fish oil 2 grams twice a day - gemfibrozil 600 mg daily - glipizide 5 daily - green tea leaf 150 mg twice a day - metoprolol 50 at bedtime - multivitamin 1 tablet daily - nitroglycerin as needed - Prednisone 10 mg as directed - ranitidine 1 tablet daily - rosuvastatin 20 at bedtime Patient's lisinopril has been discontinued due to acute renal failure with creatinine of 2.99 on admission. Current creatinine 1.88 is closer to his baseline of 1.6 to 1.9. HOSPITAL COURSE: This is a 75-year-old male with moderate mitral regurgitation, diastolic dysfunction, EF of 60%, aortic regurgitation, coronary artery disease, coronary artery bypass graft 14 years ago [facility], peripheral vascular disease, renal artery stenting, dyslipidemia, hypertension, non insulin dependent type 2 diabetes presents with recent right upper respiratory infection seen at Urgent care and given clindamycin. He then developed a maculopapular rash generalized presented with weakness and found to have acute on chronic renal failure with a creatinine of 2.99 on admission with baseline of 1.6 to 1.9. Patient complained of severe profuse watery diarrhea prior to admission once clindamycin was started. CT abdomen and pelvis showed gastroenteritis. He had white count of 24.8. Due to concerns for C. difficile patient was started on oral vancomycin, intravenous Flagyl due to severe nausea, dry heaving and severe abdominal pain. After two days of oral vancomycin patient had a bowel movement, stool culture was negative for C. difficile but clinical suspicion was high and he was discharged with treatment for C. difficile with oral Flagyl. Patient's admission creatinine was 2.99 from baseline of 1.6 to 1.9 due to severe diarrhea and volume loss from diarrhea and dehydrated, decreased oral intake due to abdominal cramping and nausea. Patient was hydrated during admission with significant improvement to baseline of 1.7 to 1.8 creatinine. He was tolerating a liquid diet for his drug rash secondary to clindamycin he was given topical hydrocortisone with significant improvement. He was continued on his other home medications, aside from the lisinopril which was held due to worsening renal failure. 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 Patient's blood pressure during the hospital stay without raqzcfzlxda-zlqxcxjujy-koivel (FREDERICK) inhibitor remains stable at 109 to 165 systolic with no complaints of headache, changes in vision or confusion. Patient was found to have complaints of typical chest pain, troponin ws 1.38 decreased to 0.4 while he was continued on aspirin and Plavix. Patient's troponin was thought to be secondary to worsening renal failure according to Dr. Rodriguez, nursing service director water quality control engineer when the patient was admitted via the emergency room. Patient denied any recurrent episodes of chest pain and troponin trended downward on his aspirin and Plavix. LABS ON DISCHARGE: White count 13, hemoglobin 9.5, hematocrit 28, platelet count 215, sodium 142, potassium 3.7, chloride 112, bicarbonate 20, BUN 60, creatinine 1.88, glucose of 144. Troponin 0.225, CK MB 1, relative index 3.33, total CK of 30. MICROBIOLOGY: GI panel 10/03 negative. Patient was admitted on 10/01 two days after vancomycin was given. Urine culture negative. Methicillin-resistant Staphylococcus aureus (MRSA) screen negative. Respiratory syncytial virus (RSV) was negative. Two sets of blood culture on 10/01 no growth after 48 hours. IMAGING STUDIES: Renal ultrasound 10/01 no acute finding. Multiple bilateral simple renal cysts. CT abdomen and pelvis on 10/02 suspected Mild hepatocellular disease and cholelithiasis, fluid filled stomach and proximal small bowel, surrounding fat thickening, ileus, gastroenteritis, developing low-grade partial bowel obstruction. Clinical follow up recommended. Abdominal x-ray nonspecific small bowel gas pattern. No evidence of free air. MTDD
== END 2016-10-04 13:25 | disposition home or self-care (01) | DRG 372 ==
LOC: M ED 15:13 → M ED INP 20:26 → M PCU 10-02 00:18 → M MSPAV 10-03 13:59
PROVIDERS: ADMIT Internal Medicine; ATTEND General Practice
DX: A04.7 Enterocolitis due to Clostridium difficile (principal); K56.7 Ileus, unspecified; N17.9 Acute kidney failure, unspecified; R07.2 Precordial pain; I12.9 Hypertensive chronic kidney disease with stage 1 through stage 4 chronic kidney disease, or unspecified chronic kidney disease; E78.5 Hyperlipidemia, unspecified; E11.9 Type 2 diabetes mellitus without complications; I73.9 Peripheral vascular disease, unspecified; Z95.1 Presence of aortocoronary bypass graft; L50.0 Allergic urticaria; F17.210 Nicotine dependence, cigarettes, uncomplicated; D72.829 Elevated white blood cell count, unspecified; T36.8X5A Adverse effect of other systemic antibiotics, initial encounter; N18.3 Chronic kidney disease, stage 3 (moderate); K21.9 Gastro-esophageal reflux disease without esophagitis; R11.2 Nausea with vomiting, unspecified; R19.7 Diarrhea, unspecified; I34.0 Nonrheumatic mitral (valve) insufficiency; E86.0 Dehydration; D63.8 Anemia in other chronic diseases classified elsewhere; Z79.82 Long term (current) use of aspirin; Z79.52 Long term (current) use of systemic steroids; Z79.899 Other long term (current) drug therapy; Z79.84 Long term (current) use of oral hypoglycemic drugs

== ENCOUNTER 2016-12-09 20:59 | Emergency (ER) | payer MEDICARE ==
[~2016-12-09] VITALS: Ht 170.2 cm; Wt 89.8 kg
[~2016-12-09 20:59] MED LIST: AMLO10TA2 PO; ASPI325T28 PO; BACITAB3 PO; CRES20TA PO; FISH1000 PO; FLAG500T PO; GEMF600T PO; GLIP-162 PO; GREE150C3 PO; LISI-538 PO; LISI40TAB PO; METO50TA2 PO; NITR4TASL SL; PENT40TASA PO; PLAV75TA38 PO; PRED10TA PO; RANI300T PO; TURM500C3 PO; VITA100066 PO; VITA500T88 PO; VITMTA PO
[2016-12-09 21:44] LABS: BASO # 0.1 K/mm3 (0.0-0.2); BASO % 0.5 % (0.0-1.0); EOS # 0.2 K/mm3 (0.0-0.50); EOS % 1.4 % (0.0-3.0); LARGE UNSTAINED CELL # 0.3 K/mm3 (0.0-0.4); LARGE UNSTAINED CELL % 2.2 % (0.0-4.0); LYMPH # 2.6 K/mm3 (1.5-4.5); LYMPH % 17.5 % (24.0-44.0); MEAN CORPUSCULAR HEMOGLOBIN 26.8 pg (27.0-33.0); MEAN CORPUSCULAR HGB CONC 32.5 g/dl (32.0-36.5); MEAN CORPUSCULAR VOLUME 82.4 fl (80.0-96.0); MONO % 7.3 % (0.0-5.0); NEUTROPHILS # 9.3 K/mm3 (1.8-7.7); NEUTROPHILS % 71.1 % (36.0-66.0); PLATELET COUNT, AUTOMATED 378 k/mm3 (150-450); RED CELL DISTRIBUTION WIDTH 16.1 % (11.5-14.5); WHITE BLOOD COUNT 13.1 K/mm3 (4.0-10.0)
[2016-12-09] MEDS ORDERED: ASPIRIN 81 MG CHEW TABLET PO ONE (21:45)
[2016-12-09] MEDS ORDERED: NITROGLYCERIN 0.4 MG SUBL TABLET SL PRN (21:45)
[2016-12-09 21:55] LABS: ALBUMIN 3.5 GM/DL (3.2-5.2); ALBUMIN/GLOBULIN RATIO 0.97 (1.00-1.93); BILIRUBIN,DIRECT 0.1 MG/DL (0.0-0.2); BILIRUBIN,TOTAL 0.4 MG/DL (0.2-1.0); CALCIUM LEVEL 9.6 MG/DL (8.8-10.2); CREATININE FOR GFR 1.67 MG/DL (0.70-1.30); POTASSIUM SERUM 3.5 MEQ/L (3.5-5.1); TOTAL PROTEIN 7.1 GM/DL (6.4-8.2)
[2016-12-09 22:05] VITALS: BP 179/78
[2016-12-09] MEDS ORDERED: LevoFLOXacin 500 MG TABLET PO ONE (22:45)
[2016-12-09] MEDS ORDERED: NITR4TASL SL (22:46)
[2016-12-09] MEDS ORDERED: LEVA250T PO (22:46)
[2016-12-09 23:10] VITALS: BP 189/75
--- NOTE | 2016-12-10 05:09 | ECGEPIP ---
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
--- NOTE | 2016-12-10 07:26 | REP ---
Portable chest, single AP view: Comparison is 10/03/2016. Chronic elevation of the right hemidiaphragm accompanied by chronic effacement right costophrenic angle are unchanged. There is slight effacement of the left costophrenic was normal change suggestive of a small left pleural effusion. Sternotomy wires and borderline cardiac size are again noted, unchanged. There are no focal infiltrates. The study is diffusely underpenetrated as a consequence of portable technique artifactually accentuating the interstitium. There is an expansile lucent lesion in the medial cortex of the right humeral shaft. Follow-up plain films and / or MRI might be considered. Signed by Dagoberto Nevarez MD 12/10/2016 07:17 A
--- NOTE | 2016-12-12 06:54 | ED PDOC ---
Post-Departure Follow-Up sandra storm faxed formal report of cxr. pt sent certified letter. see report. Anthony Holder MD Dec 12, 2016 06:54
== END 2016-12-09 23:10 | disposition home or self-care (01) ==
LOC: M ED 23:02
DX: I50.9 Heart failure, unspecified (principal); J18.9 Pneumonia, unspecified organism; F17.210 Nicotine dependence, cigarettes, uncomplicated; I25.10 Atherosclerotic heart disease of native coronary artery without angina pectoris; I10 Essential (primary) hypertension

== ENCOUNTER → 2016-12-27 | Outpatient (CLI) | payer MEDICARE ==
[~2016-12-27] MED LIST changes: +LEVA250T PO
--- NOTE | 2016-12-27 17:46 | REP ---
CHEST, TWO VIEWS: REASON FOR EXAM: Heart disease. COMPARISON: 12/09/2016 There is elevation of the diaphragmatic surface of the right lung status quo. There has been previous median sternotomy and there is cardiomegaly. There is evidence of fibrotic change status quo. There is an opacity in the right lower lobe best seen on the lateral view. The latest prior lateral view was obtained in 2007. IMPRESSION: Abnormal opacity. Chest CT recommended since there is no prior lateral to compare. Signed by Andrew Miller DO 12/27/2016 06:00 P
--- NOTE | 2016-12-27 17:57 | REP ---
RIGHT HUMERUS: REASON: Followup from 10/02/2016 There is a large exostosis seen involving the proximal humeral diaphysis which is unchanged. Examination is stable from the prior exam. IMPRESSION: Large exostosis status quo. Pre- and post- gadolinium enhanced MRI should be considered since the patient has pain. Signed by Andrew Miller DO 12/27/2016 06:01 P
== END ==
LOC: M WUC 12:32
PROVIDERS: ATTEND Nurse Practitioner Family
DX: R93.6 Abnormal findings on diagnostic imaging of limbs (principal)

== ENCOUNTER → 2017-01-06 | Outpatient (CLI) | payer MEDICARE ==
--- NOTE | 2017-01-06 17:26 | REP ---
Clinical: Suspicious opacity on chest x-ray. Comparison: Chest x-ray dated 12/27/2016, and chest CT dated 10/03/2016. Findings: Chronic scattered bullae and interstitial changes along with mild bronchiectasis again noted. Right middle lobe and right basilar fibroatelectatic changes remain stable. No acute consolidation, nodule or mass lesion appreciated. No pleural effusion. No pneumothorax. Atherosclerotic changes to the thoracic aorta and coronary arteries noted along with evidence for prior sternotomy and CABG. No cardiomegaly. No pericardial effusion. Osseous structures demonstrate degenerative changes without focal osseous abnormality. Impression: 1. Chronic changes including stable COPD and scattered fibro atelectatic changes primarily involving the right lower lung field. 2. No acute mediastinal or pleuroparenchymal process appreciated. Signed by Daniel Zhao MD 01/06/2017 05:17 P
== END ==
LOC: M RAD 16:39
PROVIDERS: ATTEND Nurse Practitioner Family
DX: R91.8 Other nonspecific abnormal finding of lung field (principal)

== ENCOUNTER → 2017-06-02 | Outpatient (CLI) | payer MEDICARE ==
[~2017-06-02] MED LIST changes: +BACITAB PO; -BACITAB3 PO; +LEVA1TAB PO; -LEVA250T PO; -METO50TA2 PO; +METO50TA7 PO; +PLAV1TAB2 PO; -PLAV75TA38 PO; -PRED10TA PO; +PRED10TA2 PO
--- NOTE | 2017-06-02 11:07 | REP ---
RIGHT FOOT SERIES: Four views. HISTORY: Pain. FINDINGS: Four views of the right foot demonstrate Achilles and plantar calcaneal spur formation and mild midfoot osteoarthritic spurring. There is also mild osteoarthritic spurring at the first MTP joint. Tendon insertion site spurring is seen at the proximal end of the 5th metatarsal. No acute bony abnormality. IMPRESSION: No acute bony abnormality. Osteoarthritic changes and heel spurs. Signed by Sergey Resendiz MD 06/02/2017 01:18 P
== END ==
LOC: M WUC 09:57
PROVIDERS: ATTEND Physician Assistant
DX: M79.671 Pain in right foot (principal)

== ENCOUNTER 2017-08-10 20:47 | Inpatient (IN) | payer MEDICARE ==
[~2017-08-10] VITALS: Ht 167.6 cm; Wt 90.0 kg
[2017-08-10] MEDS: HumaLOG INSULIN (NovoLOG) PER UNIT SC SCH (21:00)
[2017-08-10] MEDS ORDERED: GI COCKTAIL 50ML BTL(HYOSCYAMINE/MAALOX/LIDOCAINE VISCOUS)(1:3:1) PO ONE (21:30)
[2017-08-10 21:48] LABS: BASO # 0.1 10^3/uL (0.0-0.2); BASO % 0.4 % (0.0-1.0); EOS # 0.3 10^3/uL (0.0-0.50); EOS % 2.1 % (0.0-3.0); IMMATURE GRANULOCYTE % 0.4 % (0-0); LYMPH % 14.8 % (24.0-44.0); MEAN CORPUSCULAR HEMOGLOBIN 30.2 pg (27.0-33.0); MEAN CORPUSCULAR HGB CONC 33.5 g/dl (32.0-36.5); MEAN CORPUSCULAR VOLUME 90.1 fl (80.0-96.0); MONO # 1.2 10^3/uL (0.0-0.8); MONO % 9.1 % (0.0-5.0); NEUTROPHILS # 9.8 10^3/uL (1.8-7.7); NEUTROPHILS % 73.2 % (36.0-66.0); PLATELET COUNT, AUTOMATED 294 10^3/uL (150-450); RED CELL DISTRIBUTION WIDTH 14.5 % (11.5-14.5); WHITE BLOOD COUNT 13.4 10^3/uL (4.0-10.0)
[2017-08-10 21:58] LABS: INR 1.1
[2017-08-10 22:13] LABS: ALBUMIN 3.4 GM/DL (3.2-5.2); ALBUMIN/GLOBULIN RATIO 0.97 (1.00-1.93); BILIRUBIN,DIRECT 0.2 MG/DL (0.0-0.2); CALCIUM LEVEL 8.5 MG/DL (8.8-10.2); CREATININE FOR GFR 1.41 MG/DL (0.70-1.30); GLOMERULAR FILTRATION RATE 52.3 (>42); MAGNESIUM LEVEL 1.6 MG/DL (1.8-2.4); POTASSIUM SERUM 3.4 MEQ/L (3.5-5.1); TOTAL PROTEIN 6.9 GM/DL (6.4-8.2)
[2017-08-10 22:18] LABS: BILIRUBIN,TOTAL 0.6 MG/DL (0.2-1.0)
[2017-08-10] MEDS ORDERED: MOXIFLOXACIN HCL 400 MG in APPROPRIATE DILUENT 1 EA IV ONE (22:30)
[2017-08-10] MEDS ORDERED: MAG SULF 1GM/100ML (MAG RUN) 1 GM in APPROPRIATE DILUENT 1 EA IV ONE (22:30)
[2017-08-10] MEDS ORDERED: POTASSIUM CHLORIDE 10 MEQ SR TABLET PO ONE (22:30)
[2017-08-10] MEDS ORDERED: ISOVUE-370 76% 100ML VIAL (Q9967) As Ordered ONE (22:35)
[2017-08-10] MEDS ORDERED: NITROGLYCERIN 2% OINT 1 GM *U/D* PKT TOP ONE (22:45)
--- NOTE | 2017-08-10 23:10 | REPUSA ---
CT angiogram of the chest Clinical statement: Chest pain and shortness of breath. Technique: Multiple axial CT images were obtained from the thoracic inlet through the upper abdomen a fter a bolus administration of nonionic intravenous contrast. Coronal and sagittal reconstructions we re also obtained. No comparison is available. Findings: The pulmonary arteries are well-opacified with contrast, with no intraluminal filling defec ts to suggest embolism. The thoracic aorta demonstrates moderate atherosclerosis, without evidence of aneurysm or dissection. Thyroid gland is within normal limits. There is mild mediastinal lymphadenop athy. For example, a anterior mediastinal lymph node measures 1.5 x 1.1 cm, just proximal to the aort ic arch. A precarinal lymph node measures 1.7 x 1.1 cm. There are small bilateral pleural effusions. There are no acute infiltrates. Mild emphysema with upper lobe predominance is noted. Limited imaging of the upper abdomen demonstrates a small gallstone within the gallbladder. There are no suspicious osseous lesions. Impression: 1. No evidence of pulmonary embolism. 2. Small bilateral pleural effusions. 3. Mild emphysema. 4. Mild mediastinal lymphadenopathy.
[2017-08-10] MEDS ORDERED: GLUCOSE 4 GM CHEW TABLET PO PRN (23:15)
[2017-08-10] MEDS ORDERED: GLUCAGON FOR INJ 1 MG VIAL (J1610) SC PRN (23:15)
[2017-08-10] MEDS ORDERED: FUROSEMIDE 40 MG/4 ML VIAL (J1940) IV ONE (23:15)
[2017-08-10] MEDS ORDERED: DEXTROSE 50% 50 ML SYRINGE IV PRN (23:15)
[2017-08-10] MEDS ORDERED: ACETAMINOPHEN TAB 650MG DOSE (2X325MG) PO PRN (23:15)
[2017-08-10] MEDS ORDERED: AMLO5TAB2 PO (23:30)
[2017-08-10] MEDS ORDERED: PANT40TA2 PO (23:30)
[2017-08-10] MEDS ORDERED: NITROGLYCERIN 0.4 MG SUBL TABLET SL PRN (23:30)
[2017-08-10] MEDS ORDERED: RANI150C PO (23:30)
[2017-08-10] MEDS ORDERED: NITR0.4S14 SL (23:30)
[2017-08-10] MEDS ORDERED: CRES20TA PO (23:30)
[2017-08-10] MEDS ORDERED: BACITAB PO (23:30)
[2017-08-11] VITALS (7 sets, daily range): BP systolic 127–176; BP diastolic 60–77
[2017-08-11] MEDS: amLODIPine 5 MG TAB PO SCH ×2 (01:14→21:13)
[2017-08-11] MEDS: PANTOPRAZOLE 40MG TAB (PROTONIX) PO SCH ×3 (01:14→21:13)
[2017-08-11] MEDS: FAMOTIDINE 20 MG TAB PO SCH ×2 (01:14→21:12)
[2017-08-11] MEDS: METOPROLOL TART 50 MG TAB PO SCH ×2 (01:14→21:14)
--- NOTE | 2017-08-11 02:04 | REP ---
Clinical: Dyspnea and cough. Comparison: 12/27/2016. Findings: Mediastinum and cardiac silhouette are stable. Evidence for prior sternotomy and CABG again noted. Chronic interstitial changes are appreciated with superimposed perihilar (right greater than left) air space disease and right lower lobe consolidation with small pleural effusion. Impression: Superimposed perihilar and basilar atelectasis with small right lower lobe consolidation and effusion. Early vascular congestion/interstitial edema within differential diagnosis. Signed by Daniel Zhao MD 08/10/2017 10:55 P
[2017-08-11] MEDS: HEPARIN SOD (PORCINE) 5000 UNITS/ML VIAL SC SCH ×3 (05:22→21:14)
[2017-08-11 06:11] LABS: MEAN CORPUSCULAR HEMOGLOBIN 29.8 pg (27.0-33.0); MEAN CORPUSCULAR HGB CONC 33.9 g/dl (32.0-36.5); MEAN CORPUSCULAR VOLUME 88.1 fl (80.0-96.0); PLATELET COUNT, AUTOMATED 274 10^3/uL (150-450); RED CELL DISTRIBUTION WIDTH 14.7 % (11.5-14.5); WHITE BLOOD COUNT 11.3 10^3/uL (4.0-10.0)
[2017-08-11 06:34] LABS: CALCIUM LEVEL 8.3 MG/DL (8.8-10.2); CREATININE FOR GFR 1.51 MG/DL (0.70-1.30); GLOMERULAR FILTRATION RATE 48.3 (>42); POTASSIUM SERUM 3.9 MEQ/L (3.5-5.1)
[2017-08-11] MEDS ORDERED: glipiZIDE XL 5 MG TABCR PO SCH (07:30)
[2017-08-11] MEDS: HumaLOG INSULIN (NovoLOG) PER UNIT SC SCH ×4 (07:30→21:00)
[2017-08-11] MEDS: PENTOXIFYLLINE 400 MG TAB PO SCH ×2 (07:57→19:47)
[2017-08-11] MEDS ORDERED: ASPIRIN ENTERIC 325 MG TAB PO SCH (09:00)
[2017-08-11] MEDS ORDERED: GEMFIBROZIL 600 MG TAB PO SCH (09:00)
[2017-08-11] MEDS ORDERED: MULTIVITAMINS/MINERALS THERAP 1 TAB PO SCH (09:00)
[2017-08-11] MEDS ORDERED: VITAMIN D 1,000 INTERNATIONAL UNITS TABLET PO SCH (09:00)
[2017-08-11] MEDS ORDERED: LACTOBACILLUS ACIDOPHILUS CAP (BACID) PO SCH (09:00)
[2017-08-11] MEDS: OMEGA-3 1050MG CAPSULE PO SCH ×2 (09:38→21:13)
[2017-08-11] MEDS: SENOKOT S TAB PO SCH ×2 (09:39→21:00)
[2017-08-11] MEDS: FUROSEMIDE 40 MG/4 ML VIAL (J1940) IV SCH ×2 (09:41→21:13)
[2017-08-11] MEDS ORDERED: SLF 3 ML SYR IV PRN (09:45)
--- NOTE | 2017-08-11 13:55 | IPNPDOC ---
Subjective Date Seen The patient was seen on 08/11/17. Subjective Chief Complaint/HPI The patient is a 76-year-old male admitted with a reason for visit of Acute On Chronic Diastolic Chf. Events since last encounter Patient seen and examined at the bedside. He tells me that he is feeling much better, and is eager to be discharged home today. Objective Physical Examination General Exam: Positive: Alert, Cooperative, No Acute Distress ENT Exam: Positive: Atraumatic, Mucous membr. moist/pink Chest Exam: Positive: Rales (faint bibasilar rales noted on auscultation), Diminished Heart Exam: Positive: Rate Normal, Normal S1, Normal S2 Abdomen Exam: Positive: Soft, Negative: Tenderness Extremity Exam: Negative: Tenderness, Swelling Psych Exam: Positive: Mental status NL, Mood NL, Memory Intact, Oriented x 3 Assessment /Plan Plan/VTE VTE Prophylaxis Ordered?: Yes Plan SOB 2/2 Decompensated CHF CTA Chest notable for B/L pleural effusions Respiratory symptoms relieved with diuretic therapy 2D ECHO ordered, (Previous ECHO 09/2016 notable for EF of 60%, Grade 1 DD) Cont IV Lasix 40mg BID Monitor I/O's Fluid restriction Daily weights Cardiology consulted Elevated Troponins in a Pt with History of CABG x 4, PVD, Renal Artery Stenting EKG noted, old LBBB noted however more prominent repolarization abnormalities noted when compared to previous tracing in November 2016 Troponin noted to be trending upward 1.93-->3.54, will continue to serially cycle Cont ASA, Plavix, Statin, Metoprolol Patient denies any complaints of chest pain, palpitations, abdominal pain, and notes that the SOB has resolved SL Nitro prn Will order an ECHO to further assess Dr. Rodriguez of Cardiology has been contacted about the troponin findings and will see the patient in consultation---no indication for transfer at this time, Dr. Rodriguez has advised us to serially trend troponin markers as the patient is not having any more symptoms, and will see the patient in consult. Leukocytosis possibly reactive to Decompensated CHF Patient's respiratory symptoms/clinical presentation more consistent with decompensated CHF, rather than underlying infectious process Resp panel negative Blood cultures pending Chronic Kidney Disease Serum Cr appears to be at baseline Hypertension, stable Cont Norvasc, Metoprolol Dyslipidemia Cont Statin Diabetes Mellitus Insulin Sliding Scale, Glipizide GERD Protonix DVT prophylaxis Heparin SC Update 1:00 pm: Patient stating that he would like to leave against medical advice as his symptoms have resolved. I did explain to the patient that we would need to keep him in the hospital for monitoring of his vital signs, laboratory values, and clinical symptoms given the upward trend of his troponin markers in the background of his significant CAD history. He may require a transfer to [facility] if he becomes symptomatic or if his condition worsens, however he is refusing that at this time as well. I did explain to him that there is an increased chance of him having a significant adverse event including but not limited to cardiac arrest, respiratory arrest, and ultimately . The patient has verbalized understanding of all the risks, benefits, and alternative therapies available and would like to still sign out AGAINST MEDICAL ADVICE. I also spoke with the patient's , Kandis and voiced my concerns with her, who verbalized understanding of the same. If the patient does decide to leave, I have advised him to return to the emergency room for any acute issues. In addition, the patient has been advised to follow-up with his primary care physician and junk removal specialist as soon as possible. VS, I&O, 24H, [facility] V[facility] Signs/I&O Vital Signs Date Time Temp Pulse Resp B/P (MAP) Pulse Ox O2 Delivery O2 Flow Rate FiO2 08/11/17 12:00 97.0 59 20 136/60 (85) 98 Room Air 08/10/17 21:52 2.0 I&O- Last 24 Hours up to 6 AM 08/12/17 06:00 Intake Total 300 ml Balance 300 ml Laboratory Data 24H LABS Laboratory Tests 2 08/10/17 21:39: Immature Granulocyte % (Auto) 0.4H, White Blood Count 13.4H, Red Blood Count 3.54L, Hemoglobin 10.7L, Hematocrit 31.9L, Mean Corpuscular Volume 90.1, Mean Corpuscular Hemoglobin 30.2, Mean Corpuscular Hemoglobin Concent 33.5, Red Cell Distribution Width 14.5, Platelet Count 294, Neutrophils (%) (Auto) 73.2H, Lymphocytes (%) (Auto) 14.8L, Monocytes (%) (Auto) 9.1H, Eosinophils (%) (Auto) 2.1, Basophils (%) (Auto) 0.4, Neutrophils # (Auto) 9.8H, Lymphocytes # (Auto) 2.0, Monocytes # (Auto) 1.2H, Eosinophils # (Auto) 0.3, Basophils # (Auto) 0.1, Immature Granulocyte # (Auto) 0.1H, Nucleated Red Blood Cells % (auto) 0.0, Prothrombin Time 14.4, Prothromb Time International Ratio 1.10, D-Dimer, Quantitative 1022.9H, Anion Gap 9, Glomerular Filtration Rate 52.3, Lactic Acid Level 1.1, Calcium Level 8.5L, Magnesium Level 1.6L, Aspartate Amino Transf (AST /SGOT) 17, Alanine Aminotransferase (ALT/SGPT) 19, Alkaline Phosphatase 59, Total Bilirubin 0.6, Direct Bilirubin 0.2, Total Creatine Kinase 59, Creatine Kinase MB 2.7, Creatine Kinase MB Relative Index 4.57H, Troponin I 0.04, C- Reactive Protein, Quantitative 2.67H, JL-Ppe-O-Type Natriuretic Peptide 1814H, Total Protein 6.9, Albumin 3.4, Albumin/Globulin Ratio 0.97L, Thyroid Stimulating Hormone (TSH) 2.840, Thyroxine (T4) 8.0 08/11/17 01:08: Bedside Glucose (Misc Panel) 127H 08/11/17 02:32: Total Creatine Kinase 102, Creatine Kinase MB 11.0H, Creatine Kinase MB Relative Index 10.78H, Troponin I 1.93#*H 08/11/17 05:45: Nucleated Red Blood Cells % (auto) 0.0, Anion Gap 11, Glomerular Filtration Rate 48.3, Calcium Level 8.3L, Troponin I 3.54#*H, Blood Urea Nitrogen 35H, Creatinine 1.51H, Sodium Level 144, Potassium Level 3.9, Chloride Level 113H, Carbon Dioxide Level 20L 08/11/17 11:55: Bedside Glucose (Misc Panel) 103 CBC/BMP Laboratory Tests 08/10/17 21:39 Red Blood Count 3.54 L, Mean Corpuscular Volume 90.1, Mean Corpuscular Hemoglobin 30.2, Mean Corpuscular Hemoglobin Concent 33.5, Red Cell Distribution Width 14.5, Neutrophils (%) (Auto) 73.2 H, Lymphocytes (%) (Auto) 14.8 L, Monocytes (%) (Auto) 9.1 H, Eosinophils (%) (Auto) 2.1, Basophils (%) ( Auto) 0.4, Neutrophils # (Auto) 9.8 H, Lymphocytes # (Auto) 2.0, Monocytes # ( Auto) 1.2 H, Eosinophils # (Auto) 0.3, Basophils # (Auto) 0.1 08/11/17 05:45 Red Blood Count 3.52 L, Mean Corpuscular Volume 88.1, Mean Corpuscular Hemoglobin 29.8, Mean Corpuscular Hemoglobin Concent 33.9, Red Cell Distribution Width 14.7 H, Calcium Level 8.3 L Microbiology Microbiology 08/10/17 Blood Culture, Received Pending 08/10/17 Blood Culture, Received Pending 08/10/17 Respiratory Virus Panel (PCR) ([facility]) - Final, Complete WILL SKAGGS MD Aug 11, 2017 13:55
--- NOTE | 2017-08-11 14:00 | HPE ---
DATE OF ADMISSION: 08/10/2017 PRIMARY CARE PROVIDER: Dr. Mayes. ATTENDING PHYSICIAN: Dr. Tony. CHIEF COMPLAINT: Shortness of breath. HISTORY OF PRESENT ILLNESS: The patient is a 76-year-old white male with multiple chronic medical conditions listed below, including diabetes, coronary artery disease, peripheral vascular disease, presented to the hospital for evaluation of shortness of breath and chest pain. The history provided by patient himself but he is a poor historian. His is with him in the ER today. Per the patient, he has intermittent right sided chest pain for about 3 years. He was following up with his primary care physician for what is thought due to acid reflex. He is referred to see gastrointestinal (GI) as well as hot plate plywood press offbearer for possible stress test as well as EGD which was not done yet. He states since early today, he has trouble to breathe but denies any worsening chest pain. No cough. No fever. No chills. No weight gain. No abdominal pain. Shortness of breath is getting worse when he moves around. In the ER, he underwent chest x-ray as well as CT angiogram of the chest which ruled out pneumonia or pulmonary embolus (PE). Likely he has mild pulmonary edema. Medicine staff was called for admission. REVIEW OF SYSTEMS: Denies fever. No chills. Positive shortness of breath. Positive intermittent left sided chest pain. No coughing. No abdominal pain. No diarrhea. No nausea. No vomiting. No tingling, numbness or weakness in the arms or lower extremities. All other system review negative. PAST MEDICAL HISTORY: 1. Hypertension. 2. Dyslipidemia. 3. Type 2 diabetes. 4. Coronary artery disease. 5. Peripheral vascular disease. 6. Chronic obstructive pulmonary disease (COPD), not on home oxygen supplements. PAST SURGICAL HISTORY: 1. Cardiac bypass surgery. 2. Bilateral carotid endarterectomy. 3. Stenting in left lower extremity. 4. Renal artery stenting. 5. Status post appendectomy. ALLERGIES: PENICILLIN, CLINDAMYCIN. FAMILY HISTORY: Positive for coronary disease in two brothers. SOCIAL HISTORY: Ongoing tobacco use a pack a day for more than 50 years. Denies alcohol abuse. Denies elicit drug abuse. He is living with his . He is FULL CODE. Medications reviewed. Diagnostic and labs include the following; CBC and differential Temperature 97.5, heart rate 90, respiratory rate 16, blood pressure 166/72. Oxygen saturation 92% on room air. General: He is awake, alert and oriented times three. He is in no acute distress. HEENT: Atraumatic. Pupils equal, round, and reactive to light and accommodation. No jaundice. Extraocular motor intact. Ear, nose and throat are normal. Mouth: Mucous, not dry. Neck: No jugular venous distention. No bruits. Lungs: Decreased breathing but no wheezing, no crackles. Heart: S1, S2, regular, no murmur. Abdomen: Soft, positive, nontender. Lower extremity: He has +2 edema in bilateral extremities. Neurologically, nonfocal. Skin: No rash. Psychologic: No acute psychosis. Diagnostic and labs including folate, CBC and differential, WBC 13.5, hemoglobin and hematocrit 10.7/31.9, platelets 294. Sodium 145, potassium 3.4, chloride 114, bicarbonate 22, BUN 36, creatinine 1.4, glucose 148, magnesium 1.6, BMP 1814, troponin times one was negative. D-dimer is up to 1022. IMPRESSION: 1. Acute on chronic diastolic congestive heart failure (CHF) exacerbation. 2. Type 2 diabetes. 3. Hypertension. 4. Carotid disease status post . 5. Peripheral vascular disease. 6. Chronic obstructive pulmonary disease (COPD). 7. Hypokalemia. 8. Hypomagnesemia. PLAN: Patient will be admitted to the progressive care unit for close monitoring. We are treating her with IV Lasix. Will closely monitor his electrolytes including magnesium and potassium. He was rule out pulmonary embolus and pneumonia. Will recycle troponin to rule out acute myocardial infarction (MA). His chest pain is atypical and he needs a stress test as outpatient. Will continue his most home medications. Will start him on insulin sliding scale for type 2 diabetes. He will be on heparin for deep venous thrombosis (DVT) prophylaxis.
[2017-08-11] MEDS: SLF 3 ML SYR IV SCH ×2 (16:19→21:14)
--- NOTE | 2017-08-11 18:47 | CR ---
DATE OF CONSULTATION: 08/11/2017 CARDIOLOGY CONSULTATION REFERRING PHYSICIAN: Dr. Kurt Tony INDICATION: Prolonged chest pain, acute pulmonary edema, and acute coronary syndrome. 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 Has a longstanding history of ischemic heart disease dating back to 1999. He is status post coronary stenting and surgical revascularization. Last stenting procedure 2 years ago. This past year has been experiencing effort-related retrosternal and left precordial distress, perhaps several times a week, usually promptly responsive to a single sublingual nitroglycerine. The past week or so he has been noticing more frequent episodes, especially postprandially. Yesterday evening, presented to the emergency room at 9 p.m. with persistent chest discomfort and dyspnea despite two sublingual nitroglycerin tablets. Upon his presentation, heart rate was 60 beats per minute and regular, blood pressure 166/72, respiratory rate 16, oxygen saturation 92% on room air, though his chest x-ray showed pulmonary edema. EKG on presentation showed sinus tachycardia with right axis deviation and left bundle branch block, very prominent, diffuse repolarization abnormalities that were more prominent than EKG . He was admitted to a telemetry unit and continued on metoprolol, amlodipine, subcutaneous heparin, Crestor, and combination aspirin and Plavix. He has remained free of chest discomfort, but serial troponin I levels increased from 0.04 to a maximum of 4.3 at 2 p.m. this afternoon. Cardiology consultation was placed. Frustratingly, the patient has been waffling whether he wished to comply with medical therapy or go home. Has a longstanding smoking history to the present. KNOWN PAST CARDIAC DISEASE/EVENTS/TESTS: July 2000 underwent cardiac catheterizations/stenting procedure at [facility] in [place]. January 2001 underwent coronary artery bypass graft (CABG) times four with left carotid endarterectomy (Dr. Mack, [facility]). Underwent right carotid endarterectomy April 2001. In 2009 cardiac catheterization with left leg/femoral artery and left renal artery stenting. Last cardiac catheterization/stenting procedure 2014 (Dr. Barboza, [facility]). Procedure complicated by left eye blindness. Last cardiology evaluation with Dr. Barboza in [place] was 1 year ago. Known cardiomegaly with echocardiogram 10/02/2016 showing mild concentric left ventricular hypertrophy with normal wall motion, left atrial enlargement with left ventricular (LV) diastolic dysfunction and elevated mean left atrial pressure. Normal right heart chamber sizes and estimated pulmonary arterial pressure. Moderate mitral annular calcification with moderate insufficiency. Mild aortic valvular sclerosis with mild insufficiency. CORONARY RISK FACTORS: Advanced age. Male gender. Longstanding smoker (started at age 18 and smokes at least one pack per day to the present). Treated hypertension since his 40s. [id number] diabetes mellitus, treated the past year. Longstanding hypercholesterolemia, treated with Crestor over the past 2 years. FAMILY HISTORY: Not applicable. OTHER PAST MEDICAL./SURGICAL HISTORY: Remote appendectomy. Has smoking-induced chronic bronchitis. History of heart failure November 2016 with elevated brain natriuretic peptide (BNP) level at that time. Presented with acute volume depletion and renal insufficiency triggered by clindamycin. REVIEW OF SYSTEMS: Denies problem with headaches. Has worn glasses the past 10-15 years. Left eye blindness following cardiac catheterization in 2014. Reduced auditory acuity. History of gastroesophageal reflux for some years, treated with Zantac. Denies dysphagia, abdominal pain, nausea, vomiting, change in bowel habit, or gastrointestinal (GI) bleeding. Prior acute renal insufficiency with elevated serum creatinine at least 1.3, dating back to 2000. Admission at this time. Chronic low back pain. OTHER CARDINAL CARDIAC SYMPTOMS: He has a chronic productive cough of milla sputum. No hemoptysis or prior pneumonia. Sleeps with two pillows. No prior history of nocturnal dyspnea. History of snoring but no apnea. No history of prior rheumatic fever. He is unaware of his cardiomegaly. Mild weight problem (weighed 130 pounds at age 20; maximum weight 195 pounds 5 or 10 years ago; weight stable since November 2016). No history of palpitations or documented rhythm disturbance. No history of near syncope or syncope. No history of embolic phenomenon. Bilateral carotid endarterectomy, as mentioned above, and prior left leg stenting and left knee stenting procedure but denies claudication. Unaware of varicose veins or phlebitis. Only recently detected ankle swelling. All other systems review is negative. MEDICATIONS: Admission medications included: - metoprolol tartrate 50 mg at bedtime - amlodipine 5 mg at bedtime - Crestor 20 mg at bedtime every other night - ranitidine 150 mg at bedtime - aspirin 325 mg daily - Plavix 75 mg daily - gemfibrozil 600 mg by mouth daily - glipizide XL 5 mg daily - multivitamin one tablet daily - vitamin C 1000 mg daily - vitamin D 1000 units daily - tumeric 500 mg daily - fish oil 2 grams twice a day - Protonix 40 mg twice a day - pentoxifylline ER 400 mg by mouth twice a day - nitroglycerin 0.4 mg sublingual (SL) every 5 minutes as needed for chest pain ALLERGIES: PENICILLIN and CLINDAMYCIN (rash). PHYSICAL EXAMINATION: CONSTITUTIONAL: Slightly barrel chested, mildly overweight, somewhat cantankerous elderly male, lying comfortably with the head of bed elevated 30 degrees. VITAL SIGNS: Heart rate 68 beats per minute and regular, blood pressure 130/60 in his right arm lying and sitting, 148/70, left arm sitting, respiratory rate 16 per minute, oxygen saturation 99% on room air. Afebrile. Weight 182 pounds, height to 66 inches, body mass index (BMI) 29.4. EYES: Slight pallor but no icterus. No petechiae or xanthelasma. HEENT: Multiple missing teeth. Normal oral moisture. No central cyanosis. NECK: Trachea midline. Bilateral carotid endarterectomy scars. Jugular veins did not appear to be elevated. RESPIRATORY: Slightly increased anteroposterior chest diameter with reduced chest excursion. Well-healed sternotomy incision. Has no current inspiratory rales but obvious prolongation of expiration and end-expiratory wheeze. CARDIOVASCULAR: Apical impulse not palpable. Heart sounds were slightly distant. No audible gallop at this time. Has an obvious apical systolic murmur, grade 2/6, with separate systolic ejection murmur, right base, but no audible diastolic murmur. Normal carotid upstroke with bilateral carotid bruits. Upper extremity pulses were symmetrical and normal. Femoral pulses were symmetrically decreased. No palpable right pedal pulses, but there is a dorsalis pedis on the left side. Has 1 mm pitting edema at least one-half way up the left side but not on the right. Few dilated superficial venules, both lower legs. His abdominal aorta was not palpable. No bruits. EXTREMITIES: No clubbing, peripheral cyanosis, or splinter hemorrhages. GASTROINTESTINAL: Overweight, soft, nontender abdomen with no hepatosplenomegaly. Normal bowel sounds. Rectal examination not indicated. MUSCULOSKELETAL: No obvious joint deformities. Normal spine curvature. Gait in his room was normal. NEUROLOGIC/PSYCHIATRIC: Somewhat cantankerous and at one point was insisting to go home, I believe, because of his smoking addiction. Left eyes blindness but otherwise normal symmetrical facial, upper and lower extremity movements. No abnormal movements. SKIN: Slight pallor, as mentioned, but no current rashes, ecchymotic lesions, or icterus. INVESTIGATIONS: Portable upright chest x-ray taken yesterday evening in the emergency room was reviewed independently and shows cardiomegaly, even allowing for this portable technique. Slightly unfolded thoracic aorta with pulmonary venous congestion and right lower lobe pleural effusion. Chest CT angiography performed yesterday was also reviewed independently and shows at least a mild to moderately dilated left atrium, left ventricle upper limits of normal in size. Normal right heart chamber sizes and inferior vena caval diameter. Moderate thoracic aortic atherosclerosis but no aneurysm. No evidence of pulmonary embolism. Emphysematous changes, upper lobes. Small bilateral pleural effusions. EKG study performed yesterday at 9 p.m. in the emergency room showed sinus tachycardia at 104 beats per minute. Rightward axis with prominent voltage in aVL, consistent with left ventricle hypertrophy by Mike criteria. Left bundle branch block configuration with QRS duration of [address] depressions, definitely more prominent than prior available EKG 12/09/2016. Blood work: Admission hemoglobin of 10.7 with normal red blood cell indices. White blood cell count was elevated yesterday evening at 13.4, and this has dropped spontaneously to 11.3 this morning. Platelet count is normal. Normal PT/INR. Admission chemistry showed a mild hypokalemia of 3.4, BUN was 36, creatinine 1.4, random glucose 148. Serum magnesium level was slightly low at 1.6. Albumin 3.4 with serum calcium 8.5. Lactic acid level was negative. Liver function studies were normal. Pro BNP level was elevated at 1814. Ultrasensitive TSH was normal at 2.8. Elevated troponin I levels as mentioned, but total CPK values have been normal. IMPRESSION/PLAN: 1. Coronary artery disease (torres martinez vessel)/post coronary artery bypass graft (CABG) times four/post multivessel coronary stenting/acute non-Q-wave myocardial infarction: From his description, it would appear he has had fairly typical angina pectoris with a crescendo pattern, presenting with prolonged bout of pain yesterday and shortness of breath. His accompanying acute pulmonary edema is in keeping with a significant myocardium in ischemic jeopardy. I am pleased with his freedom of recurrent chest pain since his admission but have strongly recommended transferred to [facility] in [place] for followup cardiac catheterization with view to revascularization procedure. Currently remains on protective combination metoprolol, amlodipine, Crestor, aspirin, and Plavix. 2. Acute pulmonary edema: Has underlying as well-documented hypertensive heart disease with left ventricular (LV) diastolic dysfunction with echocardiogram November 2016. Undoubtedly left ventricular diastolic function has acutely worsened with ischemic-mediated LV dysfunction. His dyspnea and congestion responded well to doses of parenteral Lasix given in the emergency room. Currently appears to be compensated. As mentioned above, this is a very poor prognostic sign should he continue with medical therapy alone. 3. Abnormal EKG: Longstanding EKG abnormalities with a left bundle branch block with clearly worsening or worsened repolarization abnormalities with his acute coronary syndrome. Fortunately he has been free of any significant arrhythmia on telemetry. 4. Hypertensive heart disease (benign with heart failure): As mentioned, a longstanding problem with previously documented left ventricle hypertrophy with preserved systolic function and LV diastolic dysfunction. Has not been on longstanding diuretic therapy. His decompensation prompted, as mentioned, by acute ischemic-mediated left ventricular dysfunction. Present blood pressure would be considered adequately controlled. Has chronic mild renal insufficiency with estimated glomerular filtration rate currently of 48. Apparently tolerated contrast yesterday on presentation for his chest CT angiography. 5. Mitral and aortic valve disorder (nonrheumatic)/mitral and aortic insufficiency: Has obvious auscultatory findings of mitral regurgitation and his aortic sclerosis. I cannot detect his aortic insufficiency murmur. As mentioned, echocardiogram November 2016 showed degenerative changes of his mitral and aortic valvular apparatus. No symptoms or signs of endocarditis. As mentioned, I have reviewed his medical problems in detail and have discussed my concerns regarding his high-risk cardiovascular problem at this time. Initially he insisted on being discharged home against medical advice. Fortunately, his and I were able to persuade him to stay in hospital for ambulance transport to [facility] tomorrow for followup cardiac catheterization/revascularization. He understands that if he did sign out against medical advice he would not be followed by our cardiology practice. In light of his current decision to stay and follow through will with my advice, I have contacted Dr. Anoop Lofton, inbound sales consultant at [facility], to try and facilitate his transfer tomorrow morning.
[2017-08-11] MEDS ORDERED: ROSUVASTATIN 10 MG TAB (CRESTOR) PO SCH (21:00)
[2017-08-11] MEDS ORDERED: CLOPIDOGREL 75 MG TAB PO SCH (21:00)
[2017-08-12] VITALS: BP 127/45
[2017-08-12 04:00] VITALS: BP 136/48
[2017-08-12 05:26] LABS: BASO % 0.5 % (0.0-1.0); EOS # 0.2 10^3/uL (0.0-0.50); IMMATURE GRANULOCYTE % 0.3 % (0-0); LYMPH # 1.7 10^3/uL (1.5-4.5); LYMPH % 19.3 % (24.0-44.0); MEAN CORPUSCULAR HEMOGLOBIN 29.5 pg (27.0-33.0); MEAN CORPUSCULAR HGB CONC 33.3 g/dl (32.0-36.5); MEAN CORPUSCULAR VOLUME 88.5 fl (80.0-96.0); MONO # 1.1 10^3/uL (0.0-0.8); NEUTROPHILS # 5.8 10^3/uL (1.8-7.7); NEUTROPHILS % 65.9 % (36.0-66.0); PLATELET COUNT, AUTOMATED 273 10^3/uL (150-450); RED CELL DISTRIBUTION WIDTH 14.4 % (11.5-14.5); WHITE BLOOD COUNT 8.8 10^3/uL (4.0-10.0)
[2017-08-12] MEDS: SLF 3 ML SYR IV SCH (05:51)
[2017-08-12] MEDS: HEPARIN SOD (PORCINE) 5000 UNITS/ML VIAL SC SCH (05:51)
[2017-08-12 05:57] LABS: ALBUMIN 3.2 GM/DL (3.2-5.2); CALCIUM LEVEL 8.3 MG/DL (8.8-10.2); CREATININE FOR GFR 2.05 MG/DL (0.70-1.30); MAGNESIUM LEVEL 1.8 MG/DL (1.8-2.4); PHOSPHORUS LEVEL 3.2 MG/DL (2.5-4.9); POTASSIUM SERUM 3.5 MEQ/L (3.5-5.1)
[2017-08-12] MEDS ORDERED: LR 1,000 ML IV SCH (07:30)
[2017-08-12 08:00] VITALS: BP 155/71
--- NOTE | 2017-08-12 08:28 | ECGEPIP ---
Stationary ECG Study [facility] - ED Test Date: 2017-08-10 Pat Name: KIMBERLY JOHNSON Department: Room: I1390-99 Gender: M Rn Patient Care: PruettB: 1940 Requested By: WILL BUTCHER Order Number: [id number] Reading MD: Mayte Bray Measurements Intervals [place] Rate: 104 P: -5 UT: 128 QRS: 94 QRSD: 140 T: -82 QT: 378 QTc: 498 Interpretive Statements SINUS TACHYCARDIA BORDERLINE RIGHT AXIS DEVIATION INTRAVENTRICULAR CONDUCTION DELAY LEFT VENTRICULAR HYPERTROPHY AND ST-T CHANGE POSSIBLE ANTEROSEPTAL MYOCARDIAL INFARCTION, SIMILAR 12/09/16 Electronically Signed On 08-12-2017 8:28:24 EST by Mayte Bray
[2017-08-12 09:00] VITALS: BP 156/70
--- NOTE | 2017-08-12 20:34 | ECGEPIP ---
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
--- NOTE | 2017-08-13 08:05 | DSES ---
DATE OF ADMISSION: 08/10/2017 DATE OF DISCHARGE: 08/12/2017 PRIMARY CARE PROVIDER: Justus Lockwood NP MASTER TECHNICIAN: Les Lozano MD ADMITTING PHYSICIAN: Brian Chang MD HOSPITALIST INVOLVED: Kurt Tony MD and Lula Driscoll MD FINAL DIAGNOSES: 1. Decompensated congestive heart failure (CHF). 2. Non-ST elevation myocardial infarction (NSTEMI). 3. Leukocytosis. 4. Poor compliance. 5. Chronic kidney disease (CKD). 6. Smoking. 7. Hypertension. 8. Dyslipidemia. 9. Diabetes mellitus. 10. Peripheral vascular disease. 11. Carotid artery disease. HISTORY OF PRESENT ILLNESS: This is a 76-year-old male patient with multiple chronic medical history including diabetes, coronary artery disease, peripheral vascular disease, chronic obstructive pulmonary disease (COPD), presented to the hospital for evaluation of shortness of breath and chest pain. History was provided by the patient himself, but patient is a poor historian. Currently smoker. Patient has intermittent right-sided chest pain for about 3 years. He was following up with primary care provider for what is thought due to acid reflux, was referred to see manager collection as well as transfer and pumphouse operator for possible stress test as well as EGD, which has not been done yet. Patient stated that earlier on the day of admission, there was trouble breathing, but denies any worsening chest pain. No cough, no fevers, chills, no weight gain, no abdominal pain. Shortness of breath is getting worse when the patient was moved around. In the emergency room, patient underwent chest x-ray as well as CT angio of the chest to rule out pulmonary embolus (PE) with findings suggestive of pulmonary edema. Subsequently, medicine staff was consulted for admission. HOSPITAL COURSE: Patient was admitted to the hospital, given diuretics, one dose of Avelox was given in the emergency room. Cardiac enzymes were trended. Patient's diabetes was monitored. Serial cardiac enzymes were done. Patient, on repeat cardiac enzymes, shows positive troponin and CK-MB. Subsequently, cardiology was consulted. Echocardiogram was done. Patient's symptoms improved with diuresis and nitroglycerin paste and, as per cardiology, patient was actually transferred by Dr. Lozano to [facility] for further evaluation. The patient's transfer was delayed secondary to patient did not want the transfer and wanted to be discharged prior. This morning, after taking over the patient's care from Dr. Tony, physician was contacted by nursing staff that patient was accepted at [facility] after Dr. Lozano initiated the transfer. Subsequently, patient was seen. Patient denies any further chest pain since admission. Reported improvement of respirations. Denies any fevers or chills. VITAL SIGNS: Temperature 98.6, pulse 57, respirations 20, blood pressure 156/70, pulse oximetry 97% on room air. GENERAL: Patient alert, comfortable, in no acute distress. HEENT: Normocephalic, atraumatic. PULMONARY: Bilaterally clear to auscultation. Diminished breath sounds bilateral base. CARDIAC: Regular, S1, S2, 2/6 systolic murmur. ABDOMEN: Soft, nontender. Positive bowel sounds. EXTREMITIES: Trace edema bilateral lower extremities. LABORATORY DATA: WBC 8.8, hemoglobin and hematocrit 10.5/31.5, platelets 273. Chemistry: Sodium 146, potassium 3.5, chloride 112, bicarbonate 23, BUN 45, creatinine 2.05, last troponin 1.92. INPATIENT MEDICATIONS: - acetaminophen 650 mg by mouth every 4 hours as needed - Norvasc 5 mg by mouth nightly - aspirin 325 mg by mouth daily - Plavix 75 mg by mouth daily - Senokot-S one tablet by mouth twice a day - Pepcid 20 mg by mouth nightly - Lasix 40 mg IV twice a day - gemfibrozil 600 mg by mouth daily - glipizide XL 5 mg by mouth daily - heparin 5000 units subcutaneous every 8 hours - insulin as per protocol - Bacid by mouth daily - Lopressor 50 mg by mouth nightly - multivitamin one tablet by mouth daily - nitroglycerin 0.4 mg sublingual as needed - fish oil one tablet by mouth twice a day - Protonix 40 mg by mouth twice a day - Trental 400 mg by mouth twice a day - Crestor 20 mg by mouth every 2 days - vitamin D 1000 units by mouth daily DISCHARGE INSTRUCTIONS: Patient has been instructed to followup with transfer and pumphouse operator at [facility] for possible cardiac catheterization. Further management as per accepting transfer and pumphouse operator.
== END 2017-08-12 09:28 | disposition short-term general hospital (02) | DRG 291 ==
LOC: M ED 20:47 → M ED INP 23:08 → M PCU 08-11 00:47
PROVIDERS: ADMIT Hospitalist; ATTEND Hospitalist
DX: I13.0 Hypertensive heart and chronic kidney disease with heart failure and stage 1 through stage 4 chronic kidney disease, or unspecified chronic kidney disease (principal); I50.33 Acute on chronic diastolic (congestive) heart failure; I25.110 Atherosclerotic heart disease of native coronary artery with unstable angina pectoris; E11.9 Type 2 diabetes mellitus without complications; N18.9 Chronic kidney disease, unspecified; I73.9 Peripheral vascular disease, unspecified; E83.42 Hypomagnesemia; E87.6 Hypokalemia; F17.210 Nicotine dependence, cigarettes, uncomplicated; E78.5 Hyperlipidemia, unspecified; J44.9 Chronic obstructive pulmonary disease, unspecified; K21.9 Gastro-esophageal reflux disease without esophagitis; Z98.61 Coronary angioplasty status; Z95.828 Presence of other vascular implants and grafts; Z88.0 Allergy status to penicillin; Z88.1 Allergy status to other antibiotic agents

== ENCOUNTER → 2017-10-30 | Outpatient (CLI) | payer MEDICARE ==
[2017-10-30 10:53] LABS: ALBUMIN 3.3 GM/DL (3.2-5.2); ANION GAP 8 MEQ/L (8-16); BLOOD UREA NITROGEN 42 MG/DL (7-18); CALCIUM LEVEL 8.9 MG/DL (8.8-10.2); CARBON DIOXIDE LEVEL 23 MEQ/L (21-32); CHLORIDE LEVEL 114 MEQ/L (98-107); GLOMERULAR FILTRATION RATE 52.7 (>42); GLUCOSE, FASTING 95 MG/DL (70-100); MAGNESIUM LEVEL 1.6 MG/DL (1.8-2.4); PHOSPHORUS LEVEL 3.6 MG/DL (2.5-4.9); POTASSIUM SERUM 4.8 MEQ/L (3.5-5.1); SODIUM LEVEL 145 MEQ/L (136-145)
== END ==
LOC: M LAB 09:23
DX: I11.0 Hypertensive heart disease with heart failure (principal); I50.9 Heart failure, unspecified
CPT/HCPCS: 83735

== ENCOUNTER → 2017-11-27 | Outpatient (CLI) | payer MEDICARE ==
[2017-11-27 11:10] LABS: ALBUMIN 3.8 GM/DL (3.2-5.2); ANION GAP 6 MEQ/L (8-16); BLOOD UREA NITROGEN 44 MG/DL (7-18); CALCIUM LEVEL 8.9 MG/DL (8.8-10.2); CARBON DIOXIDE LEVEL 23 MEQ/L (21-32); CHLORIDE LEVEL 115 MEQ/L (98-107); GLOMERULAR FILTRATION RATE 45.2 (>42); GLUCOSE, FASTING 87 MG/DL (70-100); MAGNESIUM LEVEL 2.3 MG/DL (1.8-2.4); PHOSPHORUS LEVEL 3.6 MG/DL (2.5-4.9); POTASSIUM SERUM 5.1 MEQ/L (3.5-5.1); SODIUM LEVEL 144 MEQ/L (136-145)
== END ==
LOC: M LAB 10:14
DX: I50.32 Chronic diastolic (congestive) heart failure (principal)
CPT/HCPCS: 83735

== ENCOUNTER → 2019-03-01 | Outpatient (CLI) | payer MEDICARE ==
[~2019-03-01] MED LIST changes: -AMLO10TA2 PO; +AMLO10TA5 PO; +AMLO5TAB6 PO; +ASPI-222 PO; -ASPI325T28 PO; -CRES20TA PO; +CRES20TA2 PO; -GEMF600T PO; +GEMF600T5 PO; -LEVA1TAB PO; +LEVA250T13 PO; +LISI40TA PO; -LISI40TAB PO; +NITR0.4S14 SL; +PANT40TA3 PO; +PENT400T23 PO; -PENT40TASA PO; +RANI150C PO
--- NOTE | 2019-03-01 15:27 | REP ---
LEFT HAND SERIES: Four views. HISTORY: Pain. No known injury. FINDINGS: Four views of the left hand demonstrate multiple metallic densities within the soft tissues of the thenar and hypothenar region. There are also two metallic densities along the volar aspect of the small finger near the PIP joint. These are consistent with old metallic foreign bodies. There is dystrophic calcification at the volar aspect of the carpus visible on the lateral view. Vascular calcifications noted. There is mild osteoarthritis involving the 1st MCP, 1st IP, and first metacarpal carpal articulations. Osteoarthritic spurring is seen at the DIP joints of the index long and ring fingers and the PIP joints of the small and long fingers. There are dystrophic periarticular calcifications adjacent to the 2nd, 3rd, and 4th MCP joint. There is widening of the navicular lunate interval indicating degeneration of the navicular lunate ligament. IMPRESSION: Degenerative osteoarthritic changes. Multiple old metallic shrapnel fragments in the volar soft tissues. Widening of the navicular lunate interval consistent with degeneration of this ligament. No acute bony abnormality. Electronically Signed by Sergey Resendiz MD 03/01/2019 05:19 P
--- NOTE | 2019-03-01 15:31 | REP ---
Left wrist series: Four views. History: Pain. Findings: Four views of the left wrist demonstrate a large dystrophic calcification at the volar aspect of the carpus on the lateral radiograph. There is widening of the naviculo-lunate interval consistent with degeneration of the naviculo-lunate ligament. There is some chondrocalcinosis. No acute bony abnormality is appreciated. There is a metallic shrapnel fragment projecting within the thenar soft tissues. This fragment measures 3 mm in greatest diameter. Impression: Old metallic shrapnel fragment. Widening of the naviculo-lunate interval. Periarticular soft tissue calcification at the volar aspect of the carpus. Chondrocalcinosis. Electronically Signed by Sergey Resendiz MD 03/01/2019 05:20 P
== END ==
LOC: M WUC 10:00
PROVIDERS: ATTEND Physician Assistant
DX: M19.042 Primary osteoarthritis, left hand (principal); Z18.10 Retained metal fragments, unspecified

== ENCOUNTER → 2019-03-12 | Outpatient (CLI) | payer MEDICARE ==
--- NOTE | 2019-03-12 12:18 | REP ---
Lumbar spine five views: There are no comparisons. Vertebral body heights, interspacing alignment are unremarkable. There are small anterior osteophytes at multiple levels compatible with mild degenerative disc disease. The pedicles and facet articulations are unremarkable. The sacroiliac articulations are unremarkable. There is no spondylolysis or spondylolisthesis. There is an endovascular stent in the left renal artery. There is an endovascular stent in the left iliac artery. There are surgical clips in the abdominal right lower quadrant. Impression: Multilevel mild degenerative disc disease. Endovascular stents as described. There are surgical clips in the abdominal right lower quadrant. Electronically Signed by Dagoberto Nevarez MD 03/12/2019 12:09 P
== END ==
LOC: M WUC 09:59
PROVIDERS: ATTEND Physician Assistant
DX: M51.36 Other intervertebral disc degeneration, lumbar region (principal); M51.37 Other intervertebral disc degeneration, lumbosacral region

== ENCOUNTER → 2019-04-07 | Outpatient (CLI) | payer MEDICARE ==
--- NOTE | 2019-04-07 15:24 | REP ---
HISTORY: Pain. COMPARISON: None. There is minimal tricompartmental marginal osteophytosis with mild patellofemoral joint space narrowing. Mild medial compartmental narrowing is also identified. There is no acute fracture. IMPRESSION: Chronic changes as described above. Electronically Signed by Andrew Miller DO 04/08/2019 03:19 P
== END ==
LOC: M WUC 13:57
PROVIDERS: ATTEND Physician Assistant
DX: M25.561 Pain in right knee (principal)

== ENCOUNTER → 2019-09-04 | Outpatient (CLI) | payer MEDICARE ==
[~2019-09-04] MED LIST changes: -ASPI-222 PO; +ASPI-527 PO
--- NOTE | 2019-09-04 14:05 | REP ---
LEFT WRIST SERIES, FOUR VIEWS: Four views of the left wrist performed. No fracture or dislocation is seen. Multiple small metallic foreign bodies are seen in the soft tissues of the hand in the region of the metacarpals and also in the 5th digit. The largest is in the far medial soft tissues adjacent to the 5th metacarpal measuring 3 mm in diameter. Nonspecific periarticular calcification is seen anterior to the radial carpal joint, measuring approximately 12 x 4 mm. There is mild narrowing of the radiocarpal joint. Electronically Signed by Dagoberto Mcclain MD 09/04/2019 04:06 P
== END ==
LOC: M WUC 11:01
PROVIDERS: ATTEND Physician Assistant
DX: M79.5 Residual foreign body in soft tissue (principal); M19.032 Primary osteoarthritis, left wrist

== ENCOUNTER → 2019-11-01 | Outpatient (CLI) | payer MEDICARE ==
--- NOTE | 2019-11-01 14:26 | REP ---
PA and lateral chest: Comparison is 12/27/2016. Clinical history of chronic systolic and diastolic heart failure. There is mild chronic elevation of the right hemidiaphragm, unchanged. The lung ponce otherwise clear. Cardiac size is mildly enlarged, unchanged. There are sternotomy wires, unchanged. The lexis and mediastinum are unremarkable. There is chronic deformity of the proximal right humeral shaft, possibly an osteochondroma, please refer to the plain film study dated 10/02/2016. Impression: Chronic mild cardiomegaly. Chronic elevation of the right hemidiaphragm. Right proximal humeral shaft osteochondroma. Electronically Signed by Dagoberto Nevarez MD 11/01/2019 02:18 P
== END ==
LOC: M WUC 13:38
PROVIDERS: ATTEND Internal Medicine Cardiovascular Disease
DX: D16.01 Benign neoplasm of scapula and long bones of right upper limb (principal); I50.42 Chronic combined systolic (congestive) and diastolic (congestive) heart failure

== ENCOUNTER → 2020-10-17 | Outpatient (CLI) | payer MEDICARE ==
[~2020-10-17] MED LIST changes: -AMLO10TA5 PO; +AMLO1TAB24 PO; +AMLO1TAB25 PO; -AMLO5TAB6 PO; -LISI-538 PO; +LISI20TA33 PO; -LISI40TA PO; +LISI40TA4 PO; +PANT40TA29 PO; -PANT40TA3 PO
--- NOTE | 2020-10-17 09:05 | REPVR ---
PROCEDURE INFORMATION: Exam: CT Head Without Contrast Exam date and time: 10/17/2020 8:14 AM Age: 79 years old Clinical indication: Pain; Headache TECHNIQUE: Imaging protocol: Computed tomography of the head without contrast. Radiation optimization: All CT scans at this facility use at least one of these dose optimization techniques: automated exposure control; mA and/or kV adjustment per patient size (includes targeted exams where dose is matched to clinical indication); or iterative reconstruction. COMPARISON: No relevant prior studies available. FINDINGS: Brain: Normal. No hemorrhage. Unremarkable white matter. No mass effect. Cerebral ventricles: No ventriculomegaly. Bones/joints: Unremarkable. No acute fracture. Paranasal sinuses: Visualized sinuses are unremarkable. No fluid levels. Mastoid air cells: Visualized mastoid air cells are well aerated. Orbital cavity: Orbital calcifications are seen consistent with senile plaques. Soft tissues: Unremarkable. IMPRESSION: No acute intracranial abnormality. Electronically signed by: Binh Rodriges On 10/17/2020 09:05:53 AM
== END ==
LOC: M RAD 07:50
PROVIDERS: ATTEND Nurse Practitioner Family
DX: R51.9 Headache, unspecified (principal)

== ENCOUNTER → 2021-04-17 | Outpatient (CLI) | payer MEDICARE ==
--- NOTE | 2021-04-18 08:24 | REP ---
INDICATION: PAIN IN LEFT LOWER LEG COMPARISON: None. TECHNIQUE: AP and lateral left tibia/fibula. FINDINGS: Age-related degenerative changes at the knee and ankle joint noted. No evidence for acute fracture or dislocation. Vascular calcifications are identified. No subcutaneous emphysema or foreign body. IMPRESSION: Age-related degenerative changes primarily involving the knee and ankle joints. No acute fracture or dislocation. <Electronically signed by Daniel Zhao > 04/18/21 [id number]
== END ==
LOC: M LAB 18:36 → M RAD 18:36
PROVIDERS: ATTEND Physician Assistant
DX: M79.662 Pain in left lower leg (principal)

== ENCOUNTER → 2021-04-23 | Outpatient (CLI) | payer MEDICARE ==
--- NOTE | 2021-04-23 10:39 | REP ---
INDICATION: LT LEG PAIN SWELLING ? DVT COMPARISON: None. TECHNIQUE: Real time compression and duplex Doppler interrogation of the left lower extremity deep venous system is performed, including the right common femoral vein.Compression of the left peroneal and posterior tibial veins is performed. FINDINGS: The left common femoral, superficial femoral and popliteal veins are fully compressible with transducer pressure and demonstrate normal spontaneous and phasic flow, without evidence of deep venous thrombosis.The right common femoral vein demonstrates no thrombus.The visualized left peroneal and posterior tibial veins demonstrate no thrombus, not optimally evaluated due to soft tissue edema. IMPRESSION: No evidence of deep venous thrombosis of the left lower extremity femoral popliteal venous system.No thrombus in the visualized left peroneal and posterior tibial veins. <Electronically signed by Dagoberto Mcclain > 04/23/21 [id number]
== END ==
LOC: M RAD 10:06
PROVIDERS: ATTEND Family Medicine
DX: M79.672 Pain in left foot (principal)

== ENCOUNTER → 2021-05-09 | Outpatient (CLI) | payer MEDICARE ==
[~2021-05-09] MED LIST changes: +ISOVUE-370 76% 100ML VIAL As Ordered ONE
--- NOTE | 2021-05-09 11:27 | REPVR ---
PROCEDURE INFORMATION: Exam: CT Angiography Neck With Contrast Exam date and time: 05/09/2021 10:38 AM Age: 80 years old Clinical indication: Pain; Headache; Additional info: Occlusion stenosis david carotid arteries TECHNIQUE: Imaging protocol: Computed tomography angiography of the neck with contrast. 3D rendering (Not supervised by radiologist): MIP and/or 3D reconstructed images were created by the technologist. Radiation optimization: All CT scans at this facility use at least one of these dose optimization techniques: automated exposure control; mA and/or kV adjustment per patient size (includes targeted exams where dose is matched to clinical indication); or iterative reconstruction. Contrast material: ISOVUE 370; Contrast volume: 100 ml; Contrast route: INTRAVENOUS (IV); COMPARISON: CT ANGIO CHEST 08/10/2017 10:36 PM FINDINGS: Limitations: Evaluation is limited due to timing of the contrast bolus. A large portion of the injected contrast is still present within the venous system and pulmonary arteries. Right common carotid artery: Intimal thickening and atherosclerotic plaque is present within the right common carotid artery. This is causing less than 50% stenosis. However, there is a dissection flap within the distal right common carotid artery just proximal to the bifurcation. This spans a 2 cm segment of the distal right common carotid artery. Right internal carotid artery: Atherosclerotic calcifications are present at the right carotid bifurcation and within the proximal right internal carotid artery. This is causing approximately 30% stenosis of the proximal right ICA. Approximately 30% stenosis of the distal right ICA is also present due to calcified plaque near the skull base. Right external carotid artery: There is mild stenosis of the proximal right external carotid artery. Left common carotid artery: The left common carotid artery origin is obscured by artifact from adjacent dense venous contrast. There is significant intimal thickening and noncalcified plaque within the mid/distal left common carotid artery. This is causing at least 50% stenosis. Left internal carotid artery: Atherosclerotic calcifications are present at the left carotid bifurcation and within the proximal left internal carotid artery. This is causing approximately 65% stenosis of the proximal left internal carotid artery. Additionally, there appears to be severe stenosis of the distal left internal carotid artery near the skull base. However, evaluation is limited due to diminished enhancement of the left internal carotid artery in this area, compatible with delayed slow flow. Left external carotid artery: There is moderate stenosis of the left external carotid artery origin. Right vertebral artery: There is probable severe stenosis of the proximal right vertebral artery. Mid/distal right vertebral artery is patent. There is severe stenosis of the right vertebral artery at C1 level. Left vertebral artery: No stenosis. No dissection or occlusion. Aorta: Atherosclerotic calcifications are noted within the aortic arch and its branches. Soft tissues: Normal. No significant soft tissue swelling. Bones/joints: No acute fracture. Lungs: Severe centrilobular emphysema is present in the upper lobes. IMPRESSION: 1. Limited exam due to timing of the contrast bolus 2. Probable severe stenosis of the distal left cervical ICA. Additionally, there is approximately 60% stenosis of proximal left ICA. 3. At least 50% stenosis of the distal left common carotid artery 4. 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 The degree of internal carotid artery stenosis is based on NASCET criteria. Normal is no stenosis. Mild is less than 50% stenosis. Moderate is 50-69% stenosis. Severe is 70% to 99% stenosis. Total occlusion is no detectable patent lumen. Electronically signed by: Vasiliy Staley On 05/09/2021 11:27:20 AM
--- NOTE | 2021-05-09 11:40 | REPVR ---
PROCEDURE INFORMATION: Exam: CT Angiography Head With Contrast, Arteriography Exam date and time: 05/09/2021 10:38 AM Age: 80 years old Clinical indication: Pain; Headache; Additional info: Occlusion TECHNIQUE: Imaging protocol: Computed tomography angiography of the head with contrast. Exam focused on the arteries. 3D rendering (Not supervised by radiologist): MIP and/or 3D reconstructed images were created by the technologist. Radiation optimization: All CT scans at this facility use at least one of these dose optimization techniques: automated exposure control; mA and/or kV adjustment per patient size (includes targeted exams where dose is matched to clinical indication); or iterative reconstruction. Contrast material: ISOVUE 370; Contrast volume: 100 ml; Contrast route: INTRAVENOUS (IV); COMPARISON: CT Head without contrast 10/17/2020 8:16 AM FINDINGS: Limitations: Evaluation is limited due to timing of the contrast bolus. ANTERIOR CIRCULATION: Right internal carotid artery: Atherosclerotic calcifications are seen involving the right cavernous internal carotid artery. Moderate/severe stenosis is likely present. Right middle cerebral artery: Unremarkable. No occlusion or significant stenosis. No aneurysm. Right anterior cerebral artery: Unremarkable. No occlusion or significant stenosis. No aneurysm. Left internal carotid artery: There is decreased enhancement of the left internal carotid artery, compatible with delayed slow flow. There is probable severe stenosis of the left internal carotid artery within the carotid canal and left cavernous sinus. Left middle cerebral artery: There is decreased enhancement of the left middle cerebral artery, compatible with delayed slow flow. The M1 and M2 segments are patent. Left anterior cerebral artery: The left A1 segment is severely hypoplastic or stenotic. The remaining left anterior cerebral artery is unremarkable. POSTERIOR CIRCULATION: Right vertebral artery: There is severe stenosis of the right vertebral artery as it enters the dura. Left vertebral artery: Unremarkable. No occlusion or significant stenosis. No aneurysm. Basilar artery: Unremarkable. No occlusion or significant stenosis. No aneurysm. Right posterior cerebral artery: Unremarkable. No occlusion or significant stenosis. No aneurysm. Left posterior cerebral artery: Unremarkable. No occlusion or significant stenosis. No aneurysm. Brain: No definite mass, cerebral edema, or midline shift. Cerebral ventricles: No ventriculomegaly. Bones/joints: Unremarkable. No acute fracture. Soft tissues: Unremarkable. IMPRESSION: 1. Evaluation is limited due to timing of the contrast bolus. 2. There is decreased enhancement of the left internal carotid artery, compatible with delayed slow flow. There is probable severe stenosis of the left internal carotid artery within the carotid canal and left cavernous sinus. 3. Decreased enhancement of the left middle cerebral artery, compatible with delayed slow flow. The M1 and M2 segments are patent. 4. An MRI is recommended if there is continued clinical concern for an acute stroke. Electronically signed by: Vasiliy Staley On 05/09/2021 11:40:01 AM
== END ==
LOC: M RAD 10:16
PROVIDERS: ATTEND Physician Assistant
DX: I65.23 Occlusion and stenosis of bilateral carotid arteries (principal)
CPT/HCPCS: 70496; 70498; Q9967

== ENCOUNTER 2021-08-10 16:12 | Emergency (ER) | payer MEDICARE ==
[~2021-08-10] VITALS: Ht 167.6 cm; Wt 68.2 kg
[~2021-08-10 16:12] MED LIST changes: -ISOVUE-370 76% 100ML VIAL As Ordered ONE
[2021-08-10] MEDS ORDERED: ASPIRIN 81 MG CHEW TABLET PO ONE (16:30)
[2021-08-10 17:21] LABS: BASO % 0.5 % (0.0-1.0); EOS # 0.1 10^3/uL (0.0-0.5); EOS % 0.9 % (0.0-3.0); HEMATOCRIT 28.7 % (42.0-52.0); HEMOGLOBIN 9.3 g/dl (13.5-17.5); LYMPH # 1.5 10^3/uL (1.5-5.0); LYMPH % 19.1 % (24.0-44.0); MEAN CORPUSCULAR HGB CONC 32.4 g/dl (32.0-36.5); MEAN CORPUSCULAR VOLUME 98.6 fl (80.0-96.0); MONO % 12.4 % (2.0-8.0); NEUTROPHILS # 5.2 10^3/uL (1.5-8.5); NEUTROPHILS % 66.8 % (36.0-66.0); PLATELET COUNT, AUTOMATED 217 10^3/uL (150-450); RED BLOOD COUNT 2.91 10^6/uL (4.30-6.10); WHITE BLOOD COUNT 7.8 10^3/uL (4.0-10.0)
[2021-08-10 17:22] LABS: CK-MB VALUE MASS 1.8 NG/ML (<3.6); MB/CK RELATIVE INDEX 4.5 (< OR =4)
[2021-08-10 17:32] LABS: ALBUMIN 3.5 GM/DL (3.2-5.2); BILIRUBIN,DIRECT 0.1 MG/DL (0.0-0.2); BILIRUBIN,TOTAL 0.3 MG/DL (0.2-1.0); CREATININE FOR GFR 1.37 MG/DL (0.70-1.30); FREE T4 0.94 NG/DL (0.76-1.46); GLOMERULAR FILTRATION RATE 53.5 (>42); POTASSIUM SERUM 4.4 MEQ/L (3.5-5.1); THYROID STIMULATING HORMONE 1.63 uIU/ML (0.358-3.740); TOTAL PROTEIN 6.2 GM/DL (6.4-8.2)
[2021-08-10 18:17] LABS: MB/CK RELATIVE INDEX 5.41 (< OR =4)
[2021-08-10 20:23] LABS: CK-MB VALUE MASS 1.9 NG/ML (<3.6); MB/CK RELATIVE INDEX 5.59 (< OR =4)
[2021-08-10 21:00] VITALS: BP 150/85
== END 2021-08-10 21:31 | disposition home or self-care (01) ==
LOC: M ED 16:12
DX: R07.9 Chest pain, unspecified (principal); I44.7 Left bundle-branch block, unspecified; E11.51 Type 2 diabetes mellitus with diabetic peripheral angiopathy without gangrene; I10 Essential (primary) hypertension; J44.9 Chronic obstructive pulmonary disease, unspecified; E78.5 Hyperlipidemia, unspecified; I25.10 Atherosclerotic heart disease of native coronary artery without angina pectoris; F17.210 Nicotine dependence, cigarettes, uncomplicated; Z79.899 Other long term (current) drug therapy; Z79.01 Long term (current) use of anticoagulants

== ENCOUNTER 2022-01-15 03:02 | Emergency (ER) | payer MEDICARE ==
[~2022-01-15] VITALS: Ht 167.6 cm; Wt 76.4 kg
[2022-01-15 03:04] VITALS: BP 147/63
[2022-01-15] MEDS ORDERED: MAGN400T2 PO (03:18)
[2022-01-15] MEDS ORDERED: CARV6.25 PO (03:18)
[2022-01-15] MEDS ORDERED: BIDITAB PO (03:18)
[2022-01-15] MEDS ORDERED: ASPI-161 PO (03:18)
[2022-01-15] MEDS ORDERED: GREE150C PO (03:18)
[2022-01-15] MEDS ORDERED: CHLO125TA PO (03:18)
== END 2022-01-15 04:59 | disposition left against medical advice (07) ==
LOC: M ED 03:02
DX: Z53.29 Procedure and treatment not carried out because of patient's decision for other reasons (principal)

== ENCOUNTER 2022-01-18 00:09 | Emergency (ER) | payer MEDICARE ==
[~2022-01-18] VITALS: Ht 167.6 cm; Wt 160.0 kg
[~2022-01-18 00:09] MED LIST changes: +ASPI-161 PO; +BIDITAB PO; +CARV6.25 PO; +CHLO125TA PO; +GREE150C PO; +MAGN400T2 PO
[2022-01-18 00:34] VITALS: BP 131/61
[2022-01-18] MEDS ORDERED: ALPRAZolam 0.5 MG TAB PO ONE (00:55)
[2022-01-18 01:11] LABS: BASO # 0.1 10^3/uL (0.0-0.2); BASO % 0.6 % (0.0-1.0); EOS # 0.1 10^3/uL (0.0-0.5); EOS % 0.7 % (0.0-3.0); HEMATOCRIT 26.4 % (42.0-52.0); HEMOGLOBIN 8.3 g/dl (13.5-17.5); LYMPH % 11.2 % (24.0-44.0); MEAN CORPUSCULAR HEMOGLOBIN 31.4 pg (27.0-33.0); MEAN CORPUSCULAR HGB CONC 31.4 g/dl (32.0-36.5); MONO % 11.7 % (2.0-8.0); NEUTROPHILS # 6.7 10^3/uL (1.5-8.5); NEUTROPHILS % 75.4 % (36.0-66.0); PLATELET COUNT, AUTOMATED 257 10^3/uL (150-450); RED BLOOD COUNT 2.64 10^6/uL (4.30-6.10); WHITE BLOOD COUNT 8.9 10^3/uL (4.0-10.0)
[2022-01-18 01:27] LABS: ABG BASE EXCESS -9.6 (-2.0-2.0); ABG HCO3 14.9 MEQ/L (22.0-26.0); ABG O2 SATURATION 85.4 % (95.0-99.0); ABG PARTIAL PRESSURE CO2 27.4 mmHg (35.0-45.0); ABG PARTIAL PRESSURE O2 51.6 mmHg (75.0-100.0); ABG STANDARD HCO3 16.5 MEQ/L (22.0-26.0); ABG TOTAL CO2 15.7 MEQ/L (23.0-31.0); ABG pH (ARTERIAL) 7.352 UNITS (7.350-7.450)
[2022-01-18 01:34] LABS: CALCIUM LEVEL 8.3 MG/DL (8.8-10.2); CREATININE FOR GFR 1.88 MG/DL (0.70-1.30); POTASSIUM SERUM 4.3 MEQ/L (3.5-5.1)
[2022-01-18] MEDS ORDERED: FUROSEMIDE 40MG/4ML VIAL (J1940) IV ONE (02:20)
[2022-01-18 03:04] LABS: RSV AMPLIFICATION NEGATIVE (NEGATIVE)
[2022-01-18] MEDS ORDERED: NITR0.4S14 SL (18:09)
[2022-01-18] MEDS ORDERED: VITA100093 PO (18:09)
[2022-01-18] MEDS ORDERED: FAMO10TA50 PO (18:09)
== END 2022-01-18 04:10 | disposition left against medical advice (07) ==
LOC: M ED 00:09
DX: Z53.9 Procedure and treatment not carried out, unspecified reason (principal); N17.9 Acute kidney failure, unspecified; J96.11 Chronic respiratory failure with hypoxia; D64.9 Anemia, unspecified; I50.33 Acute on chronic diastolic (congestive) heart failure; I25.10 Atherosclerotic heart disease of native coronary artery without angina pectoris; I50.9 Heart failure, unspecified; E11.9 Type 2 diabetes mellitus without complications; I10 Essential (primary) hypertension; E78.5 Hyperlipidemia, unspecified; J44.9 Chronic obstructive pulmonary disease, unspecified; F41.9 Anxiety disorder, unspecified; F32.9 Major depressive disorder, single episode, unspecified; Z87.891 Personal history of nicotine dependence; Z79.02 Long term (current) use of antithrombotics/antiplatelets; Z79.84 Long term (current) use of oral hypoglycemic drugs; Z79.82 Long term (current) use of aspirin; Z88.0 Allergy status to penicillin; Z88.1 Allergy status to other antibiotic agents; Z88.8 Allergy status to other drugs, medicaments and biological substances

== ENCOUNTER 2022-01-18 12:52 | Inpatient (IN) | payer MEDICARE ==
[~2022-01-18] VITALS: Ht 165.1 cm; Wt 66.5 kg
[2022-01-18] MEDS ORDERED: FUROSEMIDE 20MG/2ML VIAL (J1940) IV ONE (13:20)
[2022-01-18] MEDS ORDERED: LIDOCAINE 2% 5ML JELLY UROJET TOP ONE (13:20)
[2022-01-18 13:52] LABS: BASO % 0.1 % (0.0-1.0); HEMATOCRIT 26.1 % (42.0-52.0); HEMOGLOBIN 8.1 g/dl (13.5-17.5); LYMPH # 0.4 10^3/uL (1.5-5.0); LYMPH % 5.6 % (24.0-44.0); MEAN CORPUSCULAR HEMOGLOBIN 31.9 pg (27.0-33.0); MEAN CORPUSCULAR VOLUME 102.8 fl (80.0-96.0); MONO # 0.7 10^3/uL (0.0-0.8); MONO % 9.6 % (2.0-8.0); NEUTROPHILS # 5.7 10^3/uL (1.5-8.5); NEUTROPHILS % 84.1 % (36.0-66.0); PLATELET COUNT, AUTOMATED 219 10^3/uL (150-450); RED BLOOD COUNT 2.54 10^6/uL (4.30-6.10); WHITE BLOOD COUNT 6.8 10^3/uL (4.0-10.0)
[2022-01-18 14:09] LABS: ABG BASE EXCESS -12.2 (-2.0-2.0); ABG O2 SATURATION 84.1 % (95.0-99.0); ABG PARTIAL PRESSURE CO2 39.1 mmHg (35.0-45.0); ABG PARTIAL PRESSURE O2 57.2 mmHg (75.0-100.0); ABG STANDARD HCO3 14.6 MEQ/L (22.0-26.0); ABG TOTAL CO2 16.2 MEQ/L (23.0-31.0)
[2022-01-18 14:10] LABS: CALCIUM LEVEL 8.4 MG/DL (8.8-10.2); CREATININE FOR GFR 2.23 MG/DL (0.70-1.30); GLOMERULAR FILTRATION RATE 30.4 (>42); POTASSIUM SERUM 4.7 MEQ/L (3.5-5.1)
[2022-01-18 14:20] LABS: ABG pH (ARTERIAL) 7.201 UNITS (7.350-7.450)
[2022-01-18] MEDS ORDERED: FUROSEMIDE 40MG/4ML VIAL (J1940) As Ordered ONE (15:17)
[2022-01-18] MEDS ORDERED: FUROSEMIDE 40MG/4ML VIAL (J1940) IV ONE (15:20)
[2022-01-18] MEDS ORDERED: methylPREDNISolone 40MG 1ML VIAL IV ONE (15:50)
[2022-01-18] MEDS ORDERED: IPRATROPIUM 0.5MG/ALBUTEROL 2.5MG INH SOL UD 3ML (DUONEB) NEB SCH (16:00)
[2022-01-18] MEDS ORDERED: PIPERACILLIN/TAZOBACTAM SOD 3.375 GM in D5W MINI-BAG PLUS 50 ML IV SCH (16:00)
[2022-01-18] MEDS ORDERED: DEXTROSE 50% 50 ML SYRINGE IV PRN (16:50)
[2022-01-18] MEDS ORDERED: GLUCOSE 4GM CHEW TABLET PO PRN (16:50)
[2022-01-18] MEDS ORDERED: GLUCAGON INJ 1MG VIAL SC PRN (16:50)
[2022-01-18] MEDS ORDERED: FUROSEMIDE injection 250 MG in D5W 225 ML IV SCH (18:00)
[2022-01-18] MEDS ORDERED: INSULIN LISPRO (NovoLOG) PER UNIT SC SCH (18:00)
[2022-01-18] MEDS ORDERED: FAMO10TA50 PO (18:09)
[2022-01-18] MEDS ORDERED: VITA100093 PO (18:09)
[2022-01-18] MEDS ORDERED: NITR0.4S14 SL (18:09)
[2022-01-18] MEDS ORDERED: HOME MED LIST COMPLETE! XX SCH (18:50)
[2022-01-18 19:00] VITALS: BP 118/57
[2022-01-18] MEDS ORDERED: MORPHINE 2 MG/ML 1ML VIAL As Ordered ONE (19:06)
[2022-01-18 19:22] LABS: RSV AMPLIFICATION NEGATIVE (NEGATIVE)
[2022-01-18] MEDS ORDERED: LORazepam 2 MG/ML VIAL IV PRN (19:25)
[2022-01-18] MEDS ORDERED: SCOPOLAMINE 1MG TRANSDERMAL PATCH TOP PRN (19:25)
[2022-01-18] MEDS ORDERED: MORPHINE 2 MG/ML 1ML VIAL IV PRN (19:25)
[2022-01-18] MEDS ORDERED: MORPHINE 2 MG/ML 1ML VIAL IV ONE (19:30)
[2022-01-19] MEDS ORDERED: HEPARIN SOD (PORCINE) 5000UNITS/ML 1ML VIAL/SYRINGE SQ SCH (06:00)
== END 2022-01-18 19:20 | disposition expired ==
LOC: M ED 12:52 → M ED INP 15:18
PROVIDERS: ADMIT Internal Medicine; ATTEND Internal Medicine
PROC: B246ZZZ Ultrasonography of Right and Left Heart (ICD-10-PCS; principal; 2022-01-18)
DX: I21.4 Non-ST elevation (NSTEMI) myocardial infarction (principal); J96.01 Acute respiratory failure with hypoxia; I50.43 Acute on chronic combined systolic (congestive) and diastolic (congestive) heart failure; N17.9 Acute kidney failure, unspecified; E87.2 Acidosis; M31.9 Necrotizing vasculopathy, unspecified; I25.10 Atherosclerotic heart disease of native coronary artery without angina pectoris; I73.9 Peripheral vascular disease, unspecified; Z95.5 Presence of coronary angioplasty implant and graft; Z95.828 Presence of other vascular implants and grafts; Z66 Do not resuscitate; Z95.1 Presence of aortocoronary bypass graft; E78.5 Hyperlipidemia, unspecified; J44.9 Chronic obstructive pulmonary disease, unspecified; E11.51 Type 2 diabetes mellitus with diabetic peripheral angiopathy without gangrene; Z90.49 Acquired absence of other specified parts of digestive tract; F17.210 Nicotine dependence, cigarettes, uncomplicated; I11.0 Hypertensive heart disease with heart failure; Z51.5 Encounter for palliative care; Z79.82 Long term (current) use of aspirin; Z79.84 Long term (current) use of oral hypoglycemic drugs; Z79.899 Other long term (current) drug therapy; Z88.0 Allergy status to penicillin; Z88.1 Allergy status to other antibiotic agents; Z88.8 Allergy status to other drugs, medicaments and biological substances